=== PATIENT | female | born 1975 | race Caucasian/White ===

== ENCOUNTER 2021-04-30 18:06 | Emergency (ER) | payer SELFPAY ==
--- NOTE | 2021-04-30 18:29 | EDM.PDOC ---
ED HPI GENERAL MEDICAL PROBLEM - General Chief Complaint: Head Injury Stated Complaint: ger amb Time Seen by Provider: 04/30/21 18:12 Source of Information: Reports: Patient, EMS History Limitations: Reports: No Limitations - History of Present Illness INITIAL COMMENTS - FREE TEXT/NARRATIVE: 46-year-old female presents to the ED per [facility]. She reports that she was walking on a mattress which is apparently lying on the floor in her living room which threw her off balance and caused her to fall forward striking her forehead on a table. She reports transient loss of conscious. She does complain of a headache but no nausea or vomiting upon arrival in the ED. Complaining of pain throughout her cervical spine particularly C6-C7 level. She can move all limbs. She has localized tenderness to the base of her spine but no step-off deformities. She is alert and oriented to person time and place. The paramedics were called out for a stroke alert. There is no evidence this patient has suffered a CVA. She complaining of mild pain in both of her shoulders and palm of her left hand over the thenar eminence. Denies any lower extremity pain or pelvic pain or lower back pain Onset: Today, Sudden Onset Date: 04/30/21 Onset Time: 17:50 Duration: Minutes: Location: Reports: Head, Neck, Upper Extremity, Left ( and biceps area. Shoulder area), Upper Extremity, Right (Shoulder area). Denies: Lower Extremity, Left, Lower Extremity, Right Quality: Reports: Ache Severity: Moderate Improves with: Reports: Rest Worsens with: Reports: Movement Context: Reports: Trauma (Tripped up and fell in her living room at home while walking on a mattress on the floor. This propelled her forward into a table st riking her forehead on the edge of a table with reported transient loss of consciousness.). Denies: Activity, Exercise, Lifting, Sick Contact Associated Symptoms: Reports: Headaches. 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 [No Known Home Meds] 04/30/21 [History] Past Medical History Musculoskeletal History: Reports: Osteoarthritis Endocrine/Metabolic History: Reports: Obesity/BMI 30+ Social & Family History - Living Situation & Occupation Living situation: Reports: Occupation: Unemployed ED ROS GENERAL - Review of Systems Review Of Systems: See Below Constitutional: Denies: Fever, Chills, Malaise, Weakness, Fatigue, Weight Loss HEENT: Reports: No Symptoms Respiratory: Reports: Shortness of Breath (On exertion). Denies: Cough Cardiovascular: Reports: Dyspnea on Exertion, Lightheadedness. Denies: Chest Pain, Blood Pressure Problem, Claudication, Edema (Occasionally), Orthopnea Endocrine: Reports: Fatigue GI/Abdominal: Reports: No Symptoms : Reports: Frequency, Incontinence (Occasional stress-induced) Musculoskeletal: Reports: Neck Pain, Back Pain, Joint Pain (Knees and hips at times) Skin: Reports: No Symptoms Neurological: Reports: Headache. Denies: Confusion, Dizziness, Numbness, Pre- Existing Deficit, Syncope, Tingling (At present from fall today), Trouble Speaking, Difficulty Walking, Weakness Psychiatric: Reports: No Symptoms Hematologic/Lymphatic: Reports: No Symptoms Immunologic: Reports: No Symptoms ED EXAM, HEAD INJURY - Physical Exam Exam: See Below Exam Limited By: No Limitations General Appearance: Alert, No Apparent Distress, Other (Temperature is 35.6 not felt to be correct. Heart rate is 66 and sinus respiratory to 16 with O2 sats of 99% room air BP 136/88.) Head: Facial Tenderness (Tenderness along the hairline particular right frontal scalp where she apparently struck a table. Minimal hematoma at this time) Nexus Criteria: Posterior, Midline Cervical Tenderness (Base of cervical spine C6-C7 and T1.). No: Evidence of Intoxication, Altered Level of Consciousness, Focal Neurological Deficit, Painful Distraction Injuries Eyes: Bilateral Eye: Normal Inspection, PERRL Ears: Normal External Exam Nose: Normal Inspection Throat/Mouth: Other (No injury to the dentition which is in very poor shape. Tongue is normal.) Neck: Normal Alignment, Normal Inspection, Paraspinous Muscle Tender, Spinous Processes Tender (Left side of her neck. C6-C7), Tender Lateral, Other (She has a bit of a buffalo hump over the lower cervical and upper thoracic vertebra) Respiratory: No Respiratory Distress, Lungs Clear, Normal Breath Sounds, No Accessory Muscle Use (Left side with minimal paraspinal muscle spasm), Other (No pain on firm compression of sternum or ribs. Clavicles and AC joints are normal) Cardiovascular: Normal Peripheral Pulses, Regular Rate, Rhythm, No Edema, No Gallop, No Murmur, No Rub GI/Abdominal Exam: Normal Bowel Sounds, Soft, Non-Tender, No Organomegaly, No Mass, Pelvis Stable Back Exam: Normal Inspection, Full Range of Motion. No: CVA Tenderness (L), CVA Tenderness (R) Extremities: Normal Inspection, Normal Range of Motion, Non-Tender, No Pedal Edema, Other (He has tenderness along the soft tissues of her right upper extremity in the distribution of her biceps and lateral right arm without abrasions or hematoma at this time. Mild tenderness over the left thenar eminence with full opposition of her left thumb to all of her fingers. Wrists e lbows knees ) Neurologic: No Motor/Sensory Deficits, Alert, Normal Mood/Affect, Oriented x 3 Skin: Normal Color, Warm/Dry - [place] Coma Score Best Eye Response ([place]): (4) Open Spontaneously Best Verbal Response ([place]): (5) Oriented Best Motor Response ([place]): (6) Obeys Commands Deniz Total: 15 Course - Vital Signs Last Recorded V/S: Last Vital Signs Temp 35.6 C L 04/30/21 18:06 Pulse 66 04/30/21 18:06 Resp 16 04/30/21 18:06 BP 136/88 04/30/21 18:06 Pulse Ox 99 04/30/21 18:06 - Orders/Labs/Meds Orders: Active Orders 24 hr Category Date Time Status Cervical Spine wo Cont [CT] Stat Exams 04/30/21 18:26 Taken Head wo Cont [CT] Stat Exams 04/30/21 18:24 Taken - Radiology Interpretation Free Text/Narrative:: 46-year-old female presents to the ED for evaluation of injuries to her head and neck primarily. She apparently was walking on a mattress that they have lying on the floor in their living room and she got tripped up and fell forwards into a table. She hit her forehead on the ledge of the table and ended up in a very awkward position with her right leg up in the air and her head on the floor. She believes she was knocked out for a short period of time. Complaining of mild headache with no nausea or vomiting. Complaining of pain at the base of her cervical spine particularly C6-C7 and thoracic 1 and 2 vertebra. No other injuries were identified on examination other than contusion to her right upper arm and left deltoid area. Also mild contusion to the thenar eminence of her left hand. Plan CT of head neck to be done. - Re-Assessments/Exams Free Text/Narrative Re-Assessment/Exam: 04/30/21 18:59 CT of the cervical spine has been completed without contrast. Reveals slight loss of the normal lordotic curvature. There is otherwise normal alignment and no fractures are evident. No subluxation is evident. Neuroforamina are within normal limits. CT of the head reveals some atrophy with prominence of the sulci and convexities slightly more than one would anticipate for patient of her age. There was no intracranial bleeding or mass- effect. No no fractures identified. Patient reassured. She will be discharged to home. Advised that she is to expect increase stiffness and soreness in her neck and upper arm muscles over the next 24 to 48 hours. She will use Motrin 600 mg every 6 hours or Aleve 2 tablets every 8 hours as needed for pain relief. Follow-up with your primary care physician if any further problems occur. Departure - Departure Time of Disposition: 19:02 Disposition: Home, Self-Care 01 Condition: Fair Clinical Impression: Contusion of right upper arm, initial encounter, Contusion of left hand, initial encounter Closed head injury Qualifiers: Encounter type: initial encounter Qualified Code(s): S09.90XA - Unspecified injury of head, initial encounter Fall as cause of accidental injury at home as place of occurrence Qualifiers: Encounter type: initial encounter Qualified Code(s): W19.XXXA - Unspecified fall, initial encounter Sprain of cervical neck Qualifiers: Encounter type: initial encounter Qualified Code(s): S13.9XXA - Sprain of joints and ligaments of unspecified parts of neck, initial encounter - Discharge Information *PRESCRIPTION DRUG MONITORING PROGRAM REVIEWED*: Not Applicable *COPY OF PRESCRIPTION DRUG MONITORING REPORT IN PATIENT ABA: Not Applicable Instructions: Facial or Scalp Contusion, [id number], Head Injury, Adult, [id number], Cervical Sprain, [id number] Forms: ED Department Discharge Additional Instructions: Evaluation in the emergency room today in regards to a fall at home with closed head injury and contusion to your right upper forehead and strain of your cervical neck muscles and ligaments. CT scan of your head reveals no skull fractures and no intracranial bleeding or mass-effect. CT scan of your neck bones did not reveal any broken bones. It appears that you have strained the surrounding muscles and ligaments from your fall and striking her forehead. Contusion to the right upper arm with no evidence of bone injury. Contusion to the palmar aspect of your left hand as well. Expect to be more stiff and sore over the next 24 to 48 hours. Suggest Motrin 600 mg every 6 hours as needed for pain relief or 2 tablets of Aleve every 8 hours for pain relief as needed. May apply ice pack to your neck for 20 minutes out of every 3 hours for the next 1 and 1/2 days. Follow-up with personal care physician if any further problems occur. Sepsis Event Note (ED) - Evaluation Sepsis Screening Result: No Definite Risk - Focused Exam Vital Signs: Vital Signs Temp Pulse Resp BP Pulse Ox 04/30/21 18:06 35.6 C L 66 16 136/88 99 - My Orders Last 24 Hours: My Active Orders 04/30/21 18:24 Head wo Cont [CT] Stat 04/30/21 18:26 Cervical Spine wo Cont [CT] Stat - Assessment/Plan Last 24 Hours: My Active Orders 04/30/21 18:24 Head wo Cont [CT] Stat 04/30/21 18:26 Cervical Spine wo Cont [CT] Stat
--- NOTE | 2021-04-30 19:07 | CT ---
Head CT Technique: Multiple axial sections through the brain were obtained. Intravenous contrast was utilized. Reconstructed coronal and sagittal images were obtained. Comparison: No prior intracranial imaging is available. Findings: Ventricles along with basal cisterns and sulci over the convexities appear within normal limits for the patient's age. No abnormal parenchymal densities are seen. Bone window settings were reviewed. No acute calvarial abnormality is seen. Visualized mastoid sinuses and paranasal sinuses show nothing acute. Impression: 1. Nothing acute is appreciated on noncontrast head CT study. Diagnostic code #1
--- NOTE | 2021-04-30 19:51 | CT ---
CT cervical spine Technique: Multiple axial sections were obtained from above C1 inferiorly to the mid T3 level. Reconstructed coronal and sagittal images were obtained. Comparison: No prior cervical spine imaging is available. Findings: Vertebral body heights and disc spaces are fairly well preserved. Very slight anterior osteophytes are seen at C4-5, C5-6 and C6-7. Vertebral body heights are maintained. Very slight posterior osteophytes are also noted at C4-5 and C5-6. No bony central or bony neural foraminal stenosis is seen. No fracture or subluxation is seen. Mild kyphosis is seen within the cervical spine which is most likely due to positioning. Slight scoliosis is also noted. Impression: 1. Kyphosis as well as mild scoliosis. Kyphosis is most likely positional. 2. No acute fracture or abnormal subluxation is seen. 3. Minimal degenerative change as noted above. Diagnostic code #2
== END 2021-04-30 19:08 | disposition home or self-care (01) ==
LOC: JD.ED 18:06
DX: S06.9X9A Unspecified intracranial injury with loss of consciousness of unspecified duration, initial encounter (principal); S13.4XXA Sprain of ligaments of cervical spine, initial encounter; S60.222A Contusion of left hand, initial encounter; E66.9 Obesity, unspecified; Z68.35 Body mass index [BMI] 35.0-35.9, adult; W18.09XA Striking against other object with subsequent fall, initial encounter; Y92.009 Unspecified place in unspecified non-institutional (private) residence as the place of occurrence of the external cause
CPT/HCPCS: 70450; 70450-26; 72125; 72125-26; 99284; 99284-25

== ENCOUNTER 2021-08-07 15:29 | Inpatient (IN) | payer SELFPAY ==
[2021-08-07] MEDS ORDERED: Albuterol 0.083% 2.5 MG/3 ML Neb Soln NEB PRN (16:52)
[2021-08-07] MEDS ORDERED: Furosemide 20 MG/2 ML VIAL IVPUSH ONE (17:30)
--- NOTE | 2021-08-07 17:56 | PCM.HP.2 ---
H&P History of Present Illness - General Date of Service: 08/07/21 Admit Problem/Dx: Admission Diagnosis/Problem Admission Diagnosis/Problem Congestive heart failure/hypoxia Source of Information: Patient, Provider History Limitations: Reports: Respiratory Distress - History of Present Illness Initial Comments - Free Text/Narative: 08/07/21 46 year old female with coughing and weird flu x one month // [place] getting worse with increased swelling both feet noted. describes increased [place] started before that and not coughing up much sputum but has mucous in her throat alot. she was seen in [place] [facility] in [facility] today and found hypoxic with abnormal chest xray. with findings of enlarged heart and infiltrate and ground glass opacities in bases. (no hx of work with asbestos and or silica occupational exposure) lab normal // no screening done and called to admit patient for heart failure. no ekg done. no hemoptysis,fever,chills recently but had with flu . no covid exposure as sits at home in her chair. denies chest pains orthopnea diabetes,snoring or apnea. pregnancies x 2 without difficulty . gaining weight as legs swelled. no calve pain ,no hx of dvt or p.e or clotting disorder. appetite good and follows no diet. fh father bipolar. all: none. surgeries none p.e. vs as recorded. obese cauc female with bad teeth and breathless with talking. lungs diffuse crackles and few ronchii and few wheezes both lung diaz. cor rrr no s3/4 or murmurs.no jvd abd obese ? spleen tip no hepatomegaly ext. legs 3plus symmetric edema and redness extending to below knees. cracks between toes no def. skin tears. ekg pending . labs normal mostly see report. urine normal. blood sugar 110 non fasting. creat .9 lfts normal. protein/alb normal . assess: 1// hypoxia/tachipnea with new infiltrates and heart failure symptoms worsening over last 6 months 2// recent uri/bronchitis prob. covid screen ordered.. 3// cardiac enlargment ? etiology. echo and ekg and trop ordered but no hx of cad valvular or other known cause . ? covid and rt heart failure related to microemoli or p.e. 4// increased edema started before weird flu? heart failure and now pneumonia on xray . obesity . 5// cellulitis legs without def. vasculitis and or varicosities . lymphedema. 6// multiple carious teeth no hx of drug and or meth or etoh abuse or use. non smoker. plan o2/ d dimer/ rule out p.e and rt heart failure. ekg rule out silent ami. covid flu /rsv screen/// start nebs echo.// ekg telemety tonight. antibiotics // lasix and heart failure treatment started. screen for diabetes and other causes. diabetic ed and monitor b.s d.e and dietary teaching. boh Onset of Symptoms: Reports: Gradual (3 days increased coughing /[place] and swelling and redness of feet.) Improves with: Reports: Rest Worsens with: Reports: Movement - Related Data Allergies/Adverse Reactions: Allergies Allergy/AdvReac Type Severity Reaction Status Date / Time No Known Allergies Allergy Verified 04/30/21 18:19 Home Medications: Home Meds . [No Known Home Meds] 04/30/21 [History] Past Medical History HEENT History: Reports: Other (See Below) Other HEENT History: severe dental issues--broken teeth and blackened teeth. 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: Musculoskeletal History: Reports: Osteoarthritis Endocrine/Metabolic History: Reports: Obesity/BMI 30+ - Infectious Disease History Infectious Disease History: Reports: Chicken Pox Social & Family History - Caffeine Use Caffeine Use: Reports: Soda - Living Situation & Occupation Occupation: Unemployed H&P Review of Systems - Review of Systems: Review Of Systems: See Below General: Reports: No Symptoms HEENT: Reports: No Symptoms Pulmonary: Reports: No Symptoms, Shortness of Breath, Cough Cardiovascular: Reports: No Symptoms Gastrointestinal: Reports: No Symptoms Genitourinary: Reports: No Symptoms Musculoskeletal: Reports: No Symptoms Skin: Reports: No Symptoms Psychiatric: Reports: No Symptoms Neurological: Reports: No Symptoms Hematologic/Lymphatic: Reports: No Symptoms Immunologic: Reports: No Symptoms Exam - Exam Exam: See Below - Vital Signs Vital Signs: Last Vital Signs Temp 36.6 C 08/07/21 15:47 Pulse 85 08/07/21 15:59 Resp 18 08/07/21 15:47 BP 132/67 08/07/21 15:47 Pulse Ox 99 08/07/21 15:59 - Exam Quality Assessment: Supplemental Oxygen General: Alert, Oriented, 4 HEENT: PERRLA, Hearing Intact, Mucosa Moist & Chaplin, Nares Patent, Normal Nasal Septum, Posterior Pharynx Clear, Conjunctiva Clear, EOMI, EACs Clear, TMs Clear Neck: Supple, Trachea Midline, 2 Lungs: Clear to Auscultation, Normal Respiratory Effort Cardiovascular: Regular Rate, Regular Rhythm GI/Abdominal Exam: Normal Bowel Sounds, Soft, Non-Tender, No Organomegaly, No Distention, No Abnormal Bruit, No Mass, Pelvis Stable (Female) Exam: Normal External Exam, Normal Speculum Exam, Normal Bimanual Exam Rectal (Female) Exam: Normal Exam, Normal Rectal Tone Back Exam: Normal Inspection, Full Range of Motion, NT Extremities: Normal Inspection, Normal Range of Motion, Non-Tender, No Pedal Edema, Normal Capillary Refill Skin: Warm, Dry, Intact Neurological: Cranial Nerves Intact, Reflexes Equal Bilateral Neuro Extensive - Mental Status: Alert, Oriented x3, Normal Mood/Affect, Normal Cognition Neuro Extensive - Motor, Sensory, Reflexes: CN II-XII Intact, Normal Gait, Normal Reflexes Psychiatric: Alert, Normal Affect, Normal Mood Sepsis Event Note - Focused Exam Vital Signs: Vital Signs Temp Pulse Resp BP Pulse Ox 08/07/21 15:59 85 99 08/07/21 15:47 36.6 C 94 18 132/67 84 L - Problem List (1) Heart failure SNOMED Code(s): 14139810 ICD Code: I50.9 - HEART FAILURE, UNSPECIFIED Status: Acute Priority: High Current Visit: Yes Qualifiers: Heart failure type: right-sided Heart failure chronicity: unspecified Shukri lified Code(s): I50.810 - Right heart failure, unspecified (2) Bronchitis due to COVID-19 virus SNOMED Code(s): 655028015732851518 ICD Code: U07.1 - COVID-19; J40 - BRONCHITIS, NOT SPECIFIED ACUTE OR CHRONIC Status: Acute Priority: High Current Visit: Yes Onset Date: ~07/08/21 Problem Details: screens pending/ pneumonic and gg infiltrates seen on xray needs ct scan with contrast likely rule out p.e and eval lung disease (3) Edema due to congestive heart failure SNOMED Code(s): 430880326, 784708445 ICD Code: I50.9 - HEART FAILURE, UNSPECIFIED Status: Acute Current Visit: Yes (4) Cellulitis SNOMED Code(s): 099436687 ICD Code: L03.90 - CELLULITIS, UNSPECIFIED Status: Acute Current Visit: Yes Onset Date: ~08/07/21 Qualifiers: Site of cellulitis: other site Qualified Code(s): L03.818 - Cellulitis of other sites (5) Obesity (BMI 30-39.9) SNOMED Code(s): 898747832, 590022309 ICD Code: E66.9 - OBESITY, UNSPECIFIED Status: Acute Priority: High Current Visit: Yes Onset Date: ~08/07/21 Problem Details: might have bhavin palatecrowded a nd carious teeth. ?previous cleft lip /palate Problem List Initiated/Reviewed/Updated: Yes Orders Last 24hrs: Active Orders 24 hr Category Date Time Status Patient Status [ADT] Routine ADT 08/07/21 16:34 Active Oxygen Therapy [RC] ASDIRECTED Care 08/07/21 16:51 Active RT Aerosol Therapy [RC] ASDIRECTED Care 08/07/21 16:54 Active Up ad [place] [RC] ASDIRECTED Care 08/07/21 17:23 Active Vital Signs [RC] QSHIFT Care 08/07/21 16:35 Active Echo Comp wo Cont [US] Routine Exams 08/07/21 16:54 Ordered ABG [BLOOD GAS ARTERIAL] [BG] Urgent Lab 08/07/21 17:23 Ordered CBC WITH AUTO DIFF [HEME] Routine Lab 08/08/21 05:00 Ordered CMP [COMPREHENSIVE METABOLIC PN,CMP] [CHEM] Routine Lab 08/08/21 05:00 Ordered CRP [C-REACTIVE PROTEIN] [CHEM] Routine Lab 08/08/21 05:00 Ordered DD [D-DIMER QUANTITATIVE] [COAG] Routine Lab 08/08/21 05:00 Ordered PRO B-TYPE NATRIUR PEPT,BNPPRO [CHEM] Routine Lab 08/08/21 05:00 Ordered TROPONIN I [CHEM] Routine Lab 08/08/21 05:00 Ordered TSH [CHEM] Routine Lab 08/08/21 05:00 Ordered Albuterol [Proventil Neb Soln] Med 08/07/21 16:52 Active 2.5 mg NEB Q6HRRT PRN Furosemide [Lasix] Med 08/07/21 17:30 Once 20 mg IVPUSH NOW ONE Losartan [Cozaar] Med 08/08/21 09:00 Active 25 mg PO DAILY Potassium Chloride [Klor-Con M20] Med 08/07/21 21:00 Ordered 20 meq PO BID Medication Orders Albuterol (Albuterol 0.083% 2.5 Mg/3 Ml Neb Soln) 2.5 mg NEB Q6HRRT PRN PRN Reason: Wheezing Furosemide (Furosemide 20 Mg/2 Ml Vial) 20 mg IVPUSH NOW ONE Stop: 08/07/21 17:31 Losartan Potassium (Losartan 25 Mg Tab) 25 mg PO DAILY VIVIAN Potassium Chloride (Potassium Chloride 20 Meq Tab.Er) 20 meq PO BID VIVIAN Stop: 08/08/21 22:00 Assessment/Plan Comment:: 08/07/21 assess: 1// hypoxia/tachipnea with new infiltrates and heart failure symptoms worsening over last 6 months 2// recent uri/bronchitis prob. covid screen ordered.. 3// cardiac enlargment ? etiology. echo and ekg and trop ordered but no hx of cad valvular or other known cause . ? covid and rt heart failure related to microemoli or p.e. 4// increased edema started before weird flu? heart failure and now pneumonia on xray . obesity . 5// cellulitis legs without def. vasculitis and or varicosities . lymphedema. 6// multiple carious teeth no hx of drug and or meth or etoh abuse or use. non smoker. plan o2/ d dimer/ rule out p.e and rt heart failure. ekg rule out silent ami. covid flu /rsv screen/// start nebs echo.// ekg telemety tonight. antibiotics // lasix and heart failure treatment started. screen for diabetes and other causes. diabetic ed and monitor b.s d.e and dietary teaching. boh - Mortality Measure Prognosis:: Good
[2021-08-07] MEDS ORDERED: cefTRIAXone 2 GM in Sodium Chloride 0.9% 100 ML IV SCH (18:15)
[2021-08-07 19:44] LABS: HEMOGLOBIN A1C 6.7 %
[2021-08-07] MEDS: cefTRIAXone 2 GM in Sodium Chloride 0.9% 100 ML IV SCH (19:45)
[2021-08-07] MEDS: Potassium Chloride 20 MEQ Tab.ER PO SCH (19:59)
[2021-08-07] MEDS: Sodium Chloride 0.9% 10 ML Syringe FLUSH SCH (20:00)
[2021-08-07 20:30] LABS: CORONAVIRUS COVID-19 NAA POSITIVE (NEGATIVE)
[2021-08-07] MEDS ORDERED: Enoxaparin 40 MG/0.4 ML Syringe SUBCUT SCH (21:00)
[2021-08-07] MEDS ORDERED: Dexamethasone 6 MG TABLET PO SCH (21:45)
[2021-08-07] MEDS ORDERED: REMDESIVIR 200 MG in Sodium Chloride 0.9% 250 ML IV ONE (22:00)
[2021-08-08] MEDS ORDERED: Dexamethasone 6 MG TABLET PO SCH (01:00)
[2021-08-08] MEDS ORDERED: REMDESIVIR 200 MG in Sodium Chloride 0.9% 250 ML IV ONE (01:00)
[2021-08-08] MEDS: Dexamethasone 6 MG TABLET PO SCH ×2 (01:20→13:07)
--- NOTE | 2021-08-08 08:26 | PCM.PN ---
<Jay Valdez - Last Filed: 08/08/21 14:29> - General Info Date of Service: 08/08/21 Admission Dx/Problem (Free Text): Admission Diagnosis/Problem Admission Diagnosis/Problem Congestive heart failure/hypoxia Functional Status: Reports: Pain Controlled, Tolerating Diet, Ambulating, Urinating, Incentive Spirometry, Other (Acapella ). Denies: New Symptoms - Review of Systems General: Reports: No Symptoms. Denies: Fever, Weakness, Fatigue, Malaise, Chills HEENT: Reports: No Symptoms. Denies: Headaches, Sore Throat Pulmonary: Reports: Cough. Denies: Shortness of Breath, Pleuritic Chest Pain, Sputum, Wheezing Cardiovascular: Reports: Dyspnea on Exertion. Denies: Chest Pain, Palpitations Gastrointestinal: Reports: No Symptoms. Denies: Abdominal Pain, Constipation, Diarrhea, Nausea, Vomiting Genitourinary: Reports: No Symptoms. Denies: Pain Musculoskeletal: Reports: Foot Pain (bilateral 2/2 edema ) Skin: Reports: No Symptoms. Denies: Cyanosis Neurological: Reports: No Symptoms. Denies: Confusion, Dizziness, Headache, Numbness, Seizure, Syncope, Tingling, Difficulty Walking, Weakness, Gait Disturbance Psychiatric: Reports: No Symptoms - Patient Data Vitals - Most Recent: Last Vital Signs Temp 98.8 F 08/08/21 00:34 Pulse 93 08/08/21 04:59 Resp 20 08/08/21 04:59 BP 112/60 08/08/21 04:59 Pulse Ox 91 L 08/08/21 04:59 Weight - Most Recent: 102.693 kg I&O - Last 24 Hours: Intake & Output 08/07/21 08/08/21 08/08/21 22:59 06:59 14:59 Intake Total 750 Output Total 1400 Balance -650 Lab Results Last 24 Hours: Laboratory Results - last 24 hr 08/07/21 08/07/21 08/07/21 Range/Units 18:03 18:52 18:59 WBC (3.98-10.04) K/mm3 RBC (3.98-5.22) M/mm3 Hgb (11.2-15.7) gm/dl Hct (34.1-44.9) % MCV (79.4-94.8) fl MCH (25.6-32.2) pg MCHC (32.2-35.5) g/dl RDW Std Deviation (36.4-46.3) fL Plt Count (182-369) K/mm3 MPV (9.4-12.3) fl Neut % (Auto) (34.0-71.1) % Lymph % (Auto) (19.3-51.7) % [place] % (Auto) (4.7-12.5) % Eos % (Auto) (0.7-5.8) Baso % (Auto) (0.1-1.2) % Neut # (Auto) (1.56-6.13) K/mm3 Lymph # (Auto) (1.18-3.74) K/mm3 [place] # (Auto) (0.24-0.36) K/mm3 Eos # (Auto) (0.04-0.36) K/mm3 Baso # (Auto) (0.01-0.08) K/mm3 D-Dimer, Quantitative (0.19-0.50) mg/L Puncture Site ABG pH (7.35-7.45) ABG pCO2 (35.0-45.0) mmHg ABG pO2 (80.0-100.0) mmHg ABG HCO3 (22.0-26.0) meq/L ABG O2 Saturation (96.0-97.0) % ABG Base Excess (-2-2.0) A-a Gradient mmHg O2 Delivery Device Oxygen Flow Rate FiO2 (21.00-100.00) % Sodium (136-145) mEq/L Potassium (3.5-5.1) mEq/L Chloride (98-107) mEq/L Carbon Dioxide (21-32) mEq/L Anion Gap (5-15) BUN (7-18) mg/dL Creatinine (0.55-1.02) mg/dL Est Cr Clr Drug Dosing mL/min Estimated GFR (MDRD) (>60) mL/min BUN/Creatinine Ratio (14-18) Glucose (70-99) mg/dL POC Glucose 137 H (70-99) mg/dL Hemoglobin A1c ( - 5.6) % Calcium (8.5-10.1) mg/dL Total Bilirubin (0.2-1.0) mg/dL AST (15-37) U/L ALT (14-59) U/L Alkaline Phosphatase (46-116) U/L Troponin I 0.033 (0.00-0.056) ng/mL C-Reactive Protein (<1.0) mg/dL NT-Pro-B Natriuret Pep (0-125) pg/mL Total Protein (6.4-8.2) g/dl Albumin (3.4-5.0) g/dl Globulin gm/dL Albumin/Globulin Ratio (1-2) TSH 3rd Generation 3.512 (0.358-3.74) uIU/mL Influenza Type A RNA Negative (NEGATIVE) RSV RNA (INAAT) Negative (NEGATIVE) Influenza Type B RNA Negative (NEGATIVE) SARS-CoV-2 RNA (BRENDA) Positive H (NEGATIVE) 08/07/21 08/07/21 08/07/21 Range/Units 19:10 19:10 21:24 WBC (3.98-10.04) K/mm3 RBC (3.98-5.22) M/mm3 Hgb (11.2-15.7) gm/dl Hct (34.1-44.9) % MCV (79.4-94.8) fl MCH (25.6-32.2) pg MCHC (32.2-35.5) g/dl RDW Std Deviation (36.4-46.3) fL Plt Count (182-369) K/mm3 MPV (9.4-12.3) fl Neut % (Auto) (34.0-71.1) % Lymph % (Auto) (19.3-51.7) % [place] % (Auto) (4.7-12.5) % Eos % (Auto) (0.7-5.8) Baso % (Auto) (0.1-1.2) % Neut # (Auto) (1.56-6.13) K/mm3 Lymph # (Auto) (1.18-3.74) K/mm3 [place] # (Auto) (0.24-0.36) K/mm3 Eos # (Auto) (0.04-0.36) K/mm3 Baso # (Auto) (0.01-0.08) K/mm3 D-Dimer, Quantitative 4.38 H (0.19-0.50) mg/L Puncture Site Rt radial ABG pH 7.48 H (7.35-7.45) ABG pCO2 40.5 (35.0-45.0) mmHg ABG pO2 52.0 L (80.0-100.0) mmHg ABG HCO3 29.5 H (22.0-26.0) meq/L ABG O2 Saturation 88.0 L (96.0-97.0) % ABG Base Excess 5.8 H (-2-2.0) A-a Gradient 47 mmHg O2 Delivery Device Room air Oxygen Flow Rate 0.0 FiO2 21.00 (21.00-100.00) % Sodium (136-145) mEq/L Potassium (3.5-5.1) mEq/L Chloride (98-107) mEq/L Carbon Dioxide (21-32) mEq/L Anion Gap (5-15) BUN (7-18) mg/dL Creatinine (0.55-1.02) mg/dL Est Cr Clr Drug Dosing mL/min Estimated GFR (MDRD) (>60) mL/min BUN/Creatinine Ratio (14-18) Glucose (70-99) mg/dL POC Glucose (70-99) mg/dL Hemoglobin A1c 6.7 H ( - 5.6) % Calcium (8.5-10.1) mg/dL Total Bilirubin (0.2-1.0) mg/dL AST (15-37) U/L ALT (14-59) U/L Alkaline Phosphatase (46-116) U/L Troponin I (0.00-0.056) ng/mL C-Reactive Protein (<1.0) mg/dL NT-Pro-B Natriuret Pep (0-125) pg/mL Total Protein (6.4-8.2) g/dl Albumin (3.4-5.0) g/dl Globulin gm/dL Albumin/Globulin Ratio (1-2) TSH 3rd Generation (0.358-3.74) uIU/mL Influenza Type A RNA (NEGATIVE) RSV RNA (INAAT) (NEGATIVE) Influenza Type B RNA (NEGATIVE) SARS-CoV-2 RNA (BRENDA) (NEGATIVE) 08/08/21 08/08/21 08/08/21 Range/Units 05:17 05:17 05:17 WBC 6.06 (3.98-10.04) K/mm3 RBC 3.56 L (3.98-5.22) M/mm3 Hgb 10.8 L (11.2-15.7) gm/dl Hct 34.8 (34.1-44.9) % MCV 97.8 H (79.4-94.8) fl MCH 30.3 (25.6-32.2) pg MCHC 31.0 L (32.2-35.5) g/dl RDW Std Deviation 59.7 H (36.4-46.3) fL Plt Count 261 (182-369) K/mm3 MPV 9.1 L (9.4-12.3) fl Neut % (Auto) 84.8 H (34.0-71.1) % Lymph % (Auto) 11.7 L (19.3-51.7) % [place] % (Auto) 2.0 L (4.7-12.5) % Eos % (Auto) 1.0 (0.7-5.8) Baso % (Auto) 0.3 (0.1-1.2) % Neut # (Auto) 5.14 (1.56-6.13) K/mm3 Lymph # (Auto) 0.71 L (1.18-3.74) K/mm3 [place] # (Auto) 0.12 L (0.24-0.36) K/mm3 Eos # (Auto) 0.06 (0.04-0.36) K/mm3 Baso # (Auto) 0.02 (0.01-0.08) K/mm3 D-Dimer, Quantitative (0.19-0.50) mg/L Puncture Site ABG pH (7.35-7.45) ABG pCO2 (35.0-45.0) mmHg ABG pO2 (80.0-100.0) mmHg ABG HCO3 (22.0-26.0) meq/L ABG O2 Saturation (96.0-97.0) % ABG Base Excess (-2-2.0) A-a Gradient mmHg O2 Delivery Device Oxygen Flow Rate FiO2 (21.00-100.00) % Sodium 139 (136-145) mEq/L Potassium 3.5 (3.5-5.1) mEq/L Chloride 99 (98-107) mEq/L Carbon Dioxide 30 (21-32) mEq/L Anion Gap 13.5 (5-15) BUN 25 H (7-18) mg/dL Creatinine 1.7 H (0.55-1.02) mg/dL Est Cr Clr Drug Dosing 37.21 mL/min Estimated GFR (MDRD) 32 (>60) mL/min BUN/Creatinine Ratio 14.7 (14-18) Glucose 117 H (70-99) mg/dL POC Glucose (70-99) mg/dL Hemoglobin A1c ( - 5.6) % Calcium 9.2 (8.5-10.1) mg/dL Total Bilirubin 0.2 (0.2-1.0) mg/dL AST 27 (15-37) U/L ALT 18 (14-59) U/L Alkaline Phosphatase 182 H (46-116) U/L Troponin I (0.00-0.056) ng/mL C-Reactive Protein 30.2 H* (<1.0) mg/dL NT-Pro-B Natriuret Pep 1544 H (0-125) pg/mL Total Protein 7.2 (6.4-8.2) g/dl Albumin 2.2 L (3.4-5.0) g/dl Globulin 5.0 gm/dL Albumin/Globulin Ratio 0.4 L (1-2) TSH 3rd Generation (0.358-3.74) uIU/mL Influenza Type A RNA (NEGATIVE) RSV RNA (INAAT) (NEGATIVE) Influenza Type B RNA (NEGATIVE) SARS-CoV-2 RNA (BRENDA) (NEGATIVE) 08/08/21 Range/Units 07:04 WBC (3.98-10.04) K/mm3 RBC (3.98-5.22) M/mm3 Hgb (11.2-15.7) gm/dl Hct (34.1-44.9) % MCV (79.4-94.8) fl MCH (25.6-32.2) pg MCHC (32.2-35.5) g/dl RDW Std Deviation (36.4-46.3) fL Plt Count (182-369) K/mm3 MPV (9.4-12.3) fl Neut % (Auto) (34.0-71.1) % Lymph % (Auto) (19.3-51.7) % [place] % (Auto) (4.7-12.5) % Eos % (Auto) (0.7-5.8) Baso % (Auto) (0.1-1.2) % Neut # (Auto) (1.56-6.13) K/mm3 Lymph # (Auto) (1.18-3.74) K/mm3 [place] # (Auto) (0.24-0.36) K/mm3 Eos # (Auto) (0.04-0.36) K/mm3 Baso # (Auto) (0.01-0.08) K/mm3 D-Dimer, Quantitative (0.19-0.50) mg/L Puncture Site ABG pH (7.35-7.45) ABG pCO2 (35.0-45.0) mmHg ABG pO2 (80.0-100.0) mmHg ABG HCO3 (22.0-26.0) meq/L ABG O2 Saturation (96.0-97.0) % ABG Base Excess (-2-2.0) A-a Gradient mmHg O2 Delivery Device Oxygen Flow Rate FiO2 (21.00-100.00) % Sodium (136-145) mEq/L Potassium (3.5-5.1) mEq/L Chloride (98-107) mEq/L Carbon Dioxide (21-32) mEq/L Anion Gap (5-15) BUN (7-18) mg/dL Creatinine (0.55-1.02) mg/dL Est Cr Clr Drug Dosing mL/min Estimated GFR (MDRD) (>60) mL/min BUN/Creatinine Ratio (14-18) Glucose (70-99) mg/dL POC Glucose 167 H (70-99) mg/dL Hemoglobin A1c ( - 5.6) % Calcium (8.5-10.1) mg/dL Total Bilirubin (0.2-1.0) mg/dL AST (15-37) U/L ALT (14-59) U/L Alkaline Phosphatase (46-116) U/L Troponin I (0.00-0.056) ng/mL C-Reactive Protein (<1.0) mg/dL NT-Pro-B Natriuret Pep (0-125) pg/mL Total Protein (6.4-8.2) g/dl Albumin (3.4-5.0) g/dl Globulin gm/dL Albumin/Globulin Ratio (1-2) TSH 3rd Generation (0.358-3.74) uIU/mL Influenza Type A RNA (NEGATIVE) RSV RNA (INAAT) (NEGATIVE) Influenza Type B RNA (NEGATIVE) SARS-CoV-2 RNA (BRENDA) (NEGATIVE) Med Orders - Current: Current Medications Albuterol (Albuterol 0.083% 2.5 Mg/3 Ml Neb Soln) 2.5 mg NEB Q6HRRT PRN PRN Reason: Wheezing Apixaban (Apixaban 5 Mg Tab) 10 mg PO BID FORMERLY [facility], 1928–1983 Stop: 08/14/21 21:01 Dexamethasone (Dexamethasone 6 Mg Tablet) 6 mg PO DAILY FORMERLY [facility], [facility]–1983 Stop: 08/16/21 09:01 Last Admin: 08/08/21 01:20 Dose: 6 mg Documented by: Ceftriaxone Sodium 2 gm/ (Sodium Chloride) 100 mls @ 200 mls/hr IV Q24H [facility], [facility]–1983 Last Admin: 08/07/21 19:45 Dose: 200 mls/hr Documented by: Remdesivir 100 mg/ Sodium (Chloride) 250 mls @ 250 mls/hr IV Q24H [facility], [facility]–1983 Stop: 08/11/21 22:01 Insulin Human Lispro (Insulin Lispro 100 Unit/Ml 3 Ml Kwikpen) 0 unit SUBCUT WITHMEALSANDBED FORMERLY [facility], 1928–1983; Protocol Losartan Potassium (Losartan 25 Mg Tab) 25 mg PO DAILY [facility], 1928–1983 Potassium Chloride (Potassium Chloride 20 Meq Tab.Er) 20 meq PO BID [facility], 1928–1983 Stop: 08/08/21 22:00 Last Admin: 08/07/21 19:59 Dose: 20 meq Documented by: Sodium Chloride (Sodium Chloride 0.9% 10 Ml Syringe) 10 ml FLUSH 0900,2100 [facility], [facility]–1983 Last Admin: 08/07/21 20:00 Dose: 10 ml Documented by: Zinc Sulfate (Zinc Sulfate 220 Mg Cap) 220 mg PO DAILY [facility], 1928–1983 Discontinued Medications Dexamethasone (Dexamethasone 6 Mg Tablet) 6 mg PO DAILY [facility] Last Admin: 08/08/21 01:44 Dose: Not Given Documented by: Dexamethasone (Dexamethasone 6 Mg Tablet) 6 mg PO DAILY [facility]–1983 Enoxaparin Sodium (Enoxaparin 40 Mg/0.4 Ml Syringe) 40 mg SUBCUT BEDTIME FORMERLY [facility], [facility]–1983 Last Admin: 08/07/21 20:00 Dose: 40 mg Documented by: Furosemide (Furosemide 20 Mg/2 Ml Vial) 20 mg IVPUSH NOW ONE Stop: 12/29/21 17:31 Last Admin: 08/07/21 18:53 Dose: 20 mg Documented by: Ceftriaxone Sodium 2 gm/ (Sodium Chloride) 100 mls @ 200 mls/hr IV Q24H VIVIAN Last Admin: 08/07/21 19:57 Dose: Not Given Documented by: Remdesivir 200 mg/ Sodium (Chloride) 250 mls @ 250 mls/hr IV ONETIME ONE Stop: 08/07/21 22:01 Last Admin: 08/08/21 01:21 Dose: Not Given Documented by: Remdesivir 200 mg/ Sodium (Chloride) 250 mls @ 250 mls/hr IV ONETIME ONE Stop: 08/08/21 01:59 Last Admin: 08/08/21 01:21 Dose: 250 mls/hr Documented by: - Exam Quality Assessment: Supplemental Oxygen (1L), DVT Prophylaxis. No: Urine Catheter General: Alert, Oriented, Cooperative, No Acute Distress HEENT: Pupils Equal, Pupils Reactive, Mucous Membr. Moist/[place] Neck: Supple, Trachea Midline Lungs: Normal Respiratory Effort, Decreased Breath Sounds, Crackles (Right side - mild ) Cardiovascular: Regular Rate, Regular Rhythm GI/Abdominal Exam: Normal Bowel Sounds, Soft, Non-Tender, No Distention (Female) Exam: Deferred Back Exam: Normal Inspection, Full Range of Motion Extremities: Normal Range of Motion, Non-Tender, Normal Capillary Refill, Pedal Edema (4+ but improved), Leg Pain (Bilateral secondary to edema), Increased Warmth, Redness, Other (Nondraining bilateral lower extremity cellulitis. No obvious wounds to either leg.) Skin: Warm, Dry, Intact Neurological: No New Focal Deficit Psy/Mental Status: Alert, Normal Affect, Normal Mood - Patient Data Lab Results Last 24 hrs: Laboratory Results - last 24 hr 08/07/21 08/07/21 08/07/21 Range/Units 18:03 18:52 18:59 WBC (3.98-10.04) K/mm3 RBC (3.98-5.22) M/mm3 Hgb (11.2-15.7) gm/dl Hct (34.1-44.9) % MCV (79.4-94.8) fl MCH (25.6-32.2) pg MCHC (32.2-35.5) g/dl RDW Std Deviation (36.4-46.3) fL Plt Count (182-369) K/mm3 MPV (9.4-12.3) fl Neut % (Auto) (34.0-71.1) % Lymph % (Auto) (19.3-51.7) % [place] % (Auto) (4.7-12.5) % Eos % (Auto) (0.7-5.8) Baso % (Auto) (0.1-1.2) % Neut # (Auto) (1.56-6.13) K/mm3 Lymph # (Auto) (1.18-3.74) K/mm3 [place] # (Auto) (0.24-0.36) K/mm3 Eos # (Auto) (0.04-0.36) K/mm3 Baso # (Auto) (0.01-0.08) K/mm3 D-Dimer, Quantitative (0.19-0.50) mg/L Puncture Site ABG pH (7.35-7.45) ABG pCO2 (35.0-45.0) mmHg ABG pO2 (80.0-100.0) mmHg ABG HCO3 (22.0-26.0) meq/L ABG O2 Saturation (96.0-97.0) % ABG Base Excess (-2-2.0) A-a Gradient mmHg O2 Delivery Device Oxygen Flow Rate FiO2 (21.00-100.00) % Sodium (136-145) mEq/L Potassium (3.5-5.1) mEq/L Chloride (98-107) mEq/L Carbon Dioxide (21-32) mEq/L Anion Gap (5-15) BUN (7-18) mg/dL Creatinine (0.55-1.02) mg/dL Est Cr Clr Drug Dosing mL/min Estimated GFR (MDRD) (>60) mL/min BUN/Creatinine Ratio (14-18) Glucose (70-99) mg/dL POC Glucose 137 H (70-99) mg/dL Hemoglobin A1c ( - 5.6) % Calcium (8.5-10.1) mg/dL Total Bilirubin (0.2-1.0) mg/dL AST (15-37) U/L ALT (14-59) U/L Alkaline Phosphatase (46-116) U/L Troponin I 0.033 (0.00-0.056) ng/mL C-Reactive Protein (<1.0) mg/dL NT-Pro-B Natriuret Pep (0-125) pg/mL Total Protein (6.4-8.2) g/dl Albumin (3.4-5.0) g/dl Globulin gm/dL Albumin/Globulin Ratio (1-2) TSH 3rd Generation 3.512 (0.358-3.74) uIU/mL Influenza Type A RNA Negative (NEGATIVE) RSV RNA (INAAT) Negative (NEGATIVE) Influenza Type B RNA Negative (NEGATIVE) SARS-CoV-2 RNA (BRENDA) Positive H (NEGATIVE) 08/07/21 08/07/21 08/07/21 Range/Units 19:10 19:10 21:24 WBC (3.98-10.04) K/mm3 RBC (3.98-5.22) M/mm3 Hgb (11.2-15.7) gm/dl Hct (34.1-44.9) % MCV (79.4-94.8) fl MCH (25.6-32.2) pg MCHC (32.2-35.5) g/dl RDW Std Deviation (36.4-46.3) fL Plt Count (182-369) K/mm3 MPV (9.4-12.3) fl Neut % (Auto) (34.0-71.1) % Lymph % (Auto) (19.3-51.7) % [place] % (Auto) (4.7-12.5) % Eos % (Auto) (0.7-5.8) Baso % (Auto) (0.1-1.2) % Neut # (Auto) (1.56-6.13) K/mm3 Lymph # (Auto) (1.18-3.74) K/mm3 [place] # (Auto) (0.24-0.36) K/mm3 Eos # (Auto) (0.04-0.36) K/mm3 Baso # (Auto) (0.01-0.08) K/mm3 D-Dimer, Quantitative 4.38 H (0.19-0.50) mg/L Puncture Site Rt radial ABG pH 7.48 H (7.35-7.45) ABG pCO2 40.5 (35.0-45.0) mmHg ABG pO2 52.0 L (80.0-100.0) mmHg ABG HCO3 29.5 H (22.0-26.0) meq/L ABG O2 Saturation 88.0 L (96.0-97.0) % ABG Base Excess 5.8 H (-2-2.0) A-a Gradient 47 mmHg O2 Delivery Device Room air Oxygen Flow Rate 0.0 FiO2 21.00 (21.00-100.00) % Sodium (136-145) mEq/L Potassium (3.5-5.1) mEq/L Chloride (98-107) mEq/L Carbon Dioxide (21-32) mEq/L Anion Gap (5-15) BUN (7-18) mg/dL Creatinine (0.55-1.02) mg/dL Est Cr Clr Drug Dosing mL/min Estimated GFR (MDRD) (>60) mL/min BUN/Creatinine Ratio (14-18) Glucose (70-99) mg/dL POC Glucose (70-99) mg/dL Hemoglobin A1c 6.7 H ( - 5.6) % Calcium (8.5-10.1) mg/dL Total Bilirubin (0.2-1.0) mg/dL AST (15-37) U/L ALT (14-59) U/L Alkaline Phosphatase (46-116) U/L Troponin I (0.00-0.056) ng/mL C-Reactive Protein (<1.0) mg/dL NT-Pro-B Natriuret Pep (0-125) pg/mL Total Protein (6.4-8.2) g/dl Albumin (3.4-5.0) g/dl Globulin gm/dL Albumin/Globulin Ratio (1-2) TSH 3rd Generation (0.358-3.74) uIU/mL Influenza Type A RNA (NEGATIVE) RSV RNA (INAAT) (NEGATIVE) Influenza Type B RNA (NEGATIVE) SARS-CoV-2 RNA (BRENDA) (NEGATIVE) 08/08/21 08/08/21 08/08/21 Range/Units 05:17 05:17 05:17 WBC 6.06 (3.98-10.04) K/mm3 RBC 3.56 L (3.98-5.22) M/mm3 Hgb 10.8 L (11.2-15.7) gm/dl Hct 34.8 (34.1-44.9) % MCV 97.8 H (79.4-94.8) fl MCH 30.3 (25.6-32.2) pg MCHC 31.0 L (32.2-35.5) g/dl RDW Std Deviation 59.7 H (36.4-46.3) fL Plt Count 261 (182-369) K/mm3 MPV 9.1 L (9.4-12.3) fl Neut % (Auto) 84.8 H (34.0-71.1) % Lymph % (Auto) 11.7 L (19.3-51.7) % [place] % (Auto) 2.0 L (4.7-12.5) % Eos % (Auto) 1.0 (0.7-5.8) Baso % (Auto) 0.3 (0.1-1.2) % Neut # (Auto) 5.14 (1.56-6.13) K/mm3 Lymph # (Auto) 0.71 L (1.18-3.74) K/mm3 [place] # (Auto) 0.12 L (0.24-0.36) K/mm3 Eos # (Auto) 0.06 (0.04-0.36) K/mm3 Baso # (Auto) 0.02 (0.01-0.08) K/mm3 D-Dimer, Quantitative (0.19-0.50) mg/L Puncture Site ABG pH (7.35-7.45) ABG pCO2 (35.0-45.0) mmHg ABG pO2 (80.0-100.0) mmHg ABG HCO3 (22.0-26.0) meq/L ABG O2 Saturation (96.0-97.0) % ABG Base Excess (-2-2.0) A-a Gradient mmHg O2 Delivery Device Oxygen Flow Rate FiO2 (21.00-100.00) % Sodium 139 (136-145) mEq/L Potassium 3.5 (3.5-5.1) mEq/L Chloride 99 (98-107) mEq/L Carbon Dioxide 30 (21-32) mEq/L Anion Gap 13.5 (5-15) BUN 25 H (7-18) mg/dL Creatinine 1.7 H (0.55-1.02) mg/dL Est Cr Clr Drug Dosing 37.21 mL/min Estimated GFR (MDRD) 32 (>60) mL/min BUN/Creatinine Ratio 14.7 (14-18) Glucose 117 H (70-99) mg/dL POC Glucose (70-99) mg/dL Hemoglobin A1c ( - 5.6) % Calcium 9.2 (8.5-10.1) mg/dL Total Bilirubin 0.2 (0.2-1.0) mg/dL AST 27 (15-37) U/L ALT 18 (14-59) U/L Alkaline Phosphatase 182 H (46-116) U/L Troponin I (0.00-0.056) ng/mL C-Reactive Protein 30.2 H* (<1.0) mg/dL NT-Pro-B Natriuret Pep 1544 H (0-125) pg/mL Total Protein 7.2 (6.4-8.2) g/dl Albumin 2.2 L (3.4-5.0) g/dl Globulin 5.0 gm/dL Albumin/Globulin Ratio 0.4 L (1-2) TSH 3rd Generation (0.358-3.74) uIU/mL Influenza Type A RNA (NEGATIVE) RSV RNA (INAAT) (NEGATIVE) Influenza Type B RNA (NEGATIVE) SARS-CoV-2 RNA (BRENDA) (NEGATIVE) 08/08/21 Range/Units 07:04 WBC (3.98-10.04) K/mm3 RBC (3.98-5.22) M/mm3 Hgb (11.2-15.7) gm/dl Hct (34.1-44.9) % MCV (79.4-94.8) fl MCH (25.6-32.2) pg MCHC (32.2-35.5) g/dl RDW Std Deviation (36.4-46.3) fL Plt Count (182-369) K/mm3 MPV (9.4-12.3) fl Neut % (Auto) (34.0-71.1) % Lymph % (Auto) (19.3-51.7) % [place] % (Auto) (4.7-12.5) % Eos % (Auto) (0.7-5.8) Baso % (Auto) (0.1-1.2) % Neut # (Auto) (1.56-6.13) K/mm3 Lymph # (Auto) (1.18-3.74) K/mm3 [place] # (Auto) (0.24-0.36) K/mm3 Eos # (Auto) (0.04-0.36) K/mm3 Baso # (Auto) (0.01-0.08) K/mm3 D-Dimer, Quantitative (0.19-0.50) mg/L Puncture Site ABG pH (7.35-7.45) ABG pCO2 (35.0-45.0) mmHg ABG pO2 (80.0-100.0) mmHg ABG HCO3 (22.0-26.0) meq/L ABG O2 Saturation (96.0-97.0) % ABG Base Excess (-2-2.0) A-a Gradient mmHg O2 Delivery Device Oxygen Flow Rate FiO2 (21.00-100.00) % Sodium (136-145) mEq/L Potassium (3.5-5.1) mEq/L Chloride (98-107) mEq/L Carbon Dioxide (21-32) mEq/L Anion Gap (5-15) BUN (7-18) mg/dL Creatinine (0.55-1.02) mg/dL Est Cr Clr Drug Dosing mL/min Estimated GFR (MDRD) (>60) mL/min BUN/Creatinine Ratio (14-18) Glucose (70-99) mg/dL POC Glucose 167 H (70-99) mg/dL Hemoglobin A1c ( - 5.6) % Calcium (8.5-10.1) mg/dL Total Bilirubin (0.2-1.0) mg/dL AST (15-37) U/L ALT (14-59) U/L Alkaline Phosphatase (46-116) U/L Troponin I (0.00-0.056) ng/mL C-Reactive Protein (<1.0) mg/dL NT-Pro-B Natriuret Pep (0-125) pg/mL Total Protein (6.4-8.2) g/dl Albumin (3.4-5.0) g/dl Globulin gm/dL Albumin/Globulin Ratio (1-2) TSH 3rd Generation (0.358-3.74) uIU/mL Influenza Type A RNA (NEGATIVE) RSV RNA (INAAT) (NEGATIVE) Influenza Type B RNA (NEGATIVE) SARS-CoV-2 RNA (BRENDA) (NEGATIVE) Result Diagrams: 08/08/21 05:17 08/08/21 05:17 Sepsis Event Note - Evaluation Sepsis Screening Result: No Definite Risk - Focused Exam Vital Signs: Vital Signs Temp Pulse Resp BP Pulse Ox 08/08/21 04:59 93 20 112/60 91 L 08/08/21 00:34 98.8 F 95 20 91/48 L 91 L - Problem List & Annotations (1) Pneumonia due to COVID-19 virus SNOMED Code(s): 881395190043260191 Code(s): U07.1 - COVID-19; J12.82 - PNEUMONIA DUE TO CORONAVIRUS DISEASE 2018 Status: Acute Priority: High Current Visit: Yes (2) Suspected CHF (congestive heart failure) SNOMED Code(s): 656716371, 843277760 Code(s): R09.89 - OTH SYMPTOMS AND SIGNS INVOLVING THE CIRC AND RESP SYSTEMS Status: Suspected Priority: High Current Visit: Yes (3) Pulmonary emboli SNOMED Code(s): 09735176 Code(s): I26.99 - OTHER PULMONARY EMBOLISM WITHOUT ACUTE COR PULMONALE Status: Acute Priority: High Current Visit: Yes Qualifiers: Pulmonary embolism type: unspecified Chronicity: acute Acute cor pulmona le presence: with acute cor pulmonale Qualified Code(s): I26.09 - Other pulmonary embolism with acute cor pulmonale (4) Cellulitis SNOMED Code(s): 962493851 Code(s): L03.90 - CELLULITIS, UNSPECIFIED Status: Acute Priority: High Current Visit: Yes Qualifiers: Site of cellulitis: other site Qualified Code(s): L03.818 - Cellulitis of other sites (5) Obesity (BMI 30-39.9) SNOMED Code(s): 395475068, 421236832 Code(s): E66.9 - OBESITY, UNSPECIFIED Status: Chronic Priority: High Current Visit: Yes Onset Date: ~08/07/21 (6) Acute hypoxemic respiratory failure SNOMED Code(s): 785135866 Code(s): J96.01 - ACUTE RESPIRATORY FAILURE WITH HYPOXIA Status: Acute Priority: High Current Visit: Yes (7) Poor dentition SNOMED Code(s): 175504153 Code(s): K08.9 - DISORDER OF TEETH AND SUPPORTING STRUCTURES, UNSPECIFIED Status: Chronic Priority: Medium Current Visit: Yes (8) New onset type 2 diabetes mellitus SNOMED Code(s): 56255238 Code(s): E11.9 - TYPE 2 DIABETES MELLITUS WITHOUT COMPLICATIONS Status: Acute Priority: High Current Visit: Yes (9) Vitamin D deficiency SNOMED Code(s): 79169903 Code(s): E55.9 - VITAMIN D DEFICIENCY, UNSPECIFIED Status: Acute Priority: Medium Current Visit: Yes (10) Abnormal echocardiogram SNOMED Code(s): 639216183 Code(s): R93.1 - ABNORMAL FINDINGS ON DX IMAGING OF HEART AND COR CIRC Status: Acute Priority: High Current Visit: Yes (11) Pedal edema SNOMED Code(s): 640880959 Code(s): R60.0 - LOCALIZED EDEMA Status: Chronic Priority: High Current Visit: Yes (12) Renal failure SNOMED Code(s): 51063717 Code(s): N19 - UNSPECIFIED KIDNEY FAILURE Status: Acute Priority: High Current Visit: Yes Qualifiers: Renal failure chronicity: unspecified chronicity Qualified Code(s): N19 - Unspecified kidney failure - Problem List Review Problem List Initiated/Reviewed/Updated: Yes - My Orders Last 24 Hours: My Active Orders 08/08/21 08:18 Patient Status [ADT] Routine 08/08/21 08:20 Nurse Communication: Isolation [RC] ASDIRECTED Positioning, Patient [RC] ASDIRECTED RT Incentive Spirometry [RC] ASDIRECTED PROCALCITONIN [REF] Routine Isolation [COMM] Stat RT Acapella [RESPCARE] Routine 08/08/21 08:22 VITAMIN D,25-HYDROXY [CHEM] Routine 08/08/21 08:23 Blood Glucose Check, Bedside [RC] QIDACANDBED 08/08/21 08:24 Consult to [employer] [CONS] Routine 08/08/21 09:00 Zinc Sulfate [Zincate] 220 mg PO DAILY 08/08/21 Lunch Consistent Carbohydrate Diet [DIET] 08/08/21 11:30 Insulin Lispro [HumaLOG] See Protocol SUBCUT WITHMEALSANDBED - Assessment Assessment:: 08/07/2021 assess: 1// hypoxia/tachipnea with new infiltrates and heart failure symptoms worsening over last 6 months 2// recent uri/bronchitis prob. covid screen ordered.. 3// cardiac enlargment ? etiology. echo and ekg and trop ordered but no hx of cad valvular or other known cause . ? covid and rt heart failure related to microemoli or p.e. 4// increased edema started before weird flu? heart failure and now pneumonia on xray . obesity . 5// cellulitis legs without def. vasculitis and or varicosities . lymphedema. 6// multiple carious teeth no hx of drug and or meth or etoh abuse or use. non smoker. plan o2/ d dimer/ rule out p.e and rt heart failure. ekg rule out silent ami. covid flu /rsv screen/// start nebs echo.// ekg telemety tonight. antibiotics // lasix and heart failure treatment started. screen for diabetes and other causes. diabetic ed and monitor b.s d.e and dietary teaching. boh 08/08/2021 46-year-old female who was a direct admit from the [facility] with concerns over possible new onset elevated BNP. On admission further work-up involved hemoglobin A1c which was 6.7 and troponin which was 0.033. TSH was 3.512. Patient was found to be Covid positive. D-dimer was elevated at 4.38. Patient was sent for a CTA which showed "1. Extensive pulmonary emboli within both sides of the chest which also involve the distal right and left main pulmonary arteries. 2. Minimal decompensation of the right heart is seen. 3. Patchy areas of increased density within the chest most likely representing a combination of Covid pneumonia and superimposed change from pulmonary emboli. Prior to CTA patient had been started on empiric 10 mg Eliquis twice daily for 7 days. This will be continued now with confirmation of her pulmonary emboli. Echocardiogram was obtained and shows 1. Left ventricular ejection fraction, by visual estimation, is 6065%. 2. Normal pattern of LV diastolic filling. 3. Right ventricle is not well visualized in apical views. Unable to assess size or function but appears enlarged in some views. Abnormal septal bounce and some D-shaped septal flattening consistent with pulmonary hypertension. 4. Aortic valve is tricuspid and structurally normal. 5. Mild aortic valve regurgitation. 6. Trace mitral valve regurgitation. 7. Mild cuspid valve regurgitation. 8. The right ventricular systolic pressure is moderately elevated at 54.5 mmHg. 9. 1.3 x 0.2 cm indeterminate linear echodensity attached to posterior mitral leaflet on the left atrial side (frame 4). Differential includes artifact or vegetation. Apical images are too limited for different axis visualization. Consider cardiology consult plus or minus MELQUIADES, correlate clinically. 10. No regional wall motion abnormalities. 11. Technically difficult study with suboptimal image quality, especially apical images. Recommend Definity contrast with future slides. Contacted Dr. De Jesus, cloud systems architect with [facility] in [place] who interpreted the echocardiogram to discuss findings and recommendations. He stated because of patient's Covid symptoms they would likely not perform any intervention at this time. Unfortunately blood cultures had not been obtained yesterday prior to starting patient on antibiotics and we will order these now. We will screen the patient for MRSA but also start her on vancomycin. Patient does has risk factors for endocarditis including her current lower extremity cellulitis and very poor dentition. Because of this Dr. De Jesus recommends patient follow-up with cardiology within 2 weeks after discharge. Otherwise patient continues on dexamethasone and remdesivir for her COVID-19 pneumonia. She remains on 1 L. She has had no leukocytosis and her RBC is 3.56 currently. Hemoglobin is 10.8. Platelet 261,000. Neutrophils are elevated at 84.8%. D-dimer as mentioned prior was 4.38. ABG was obtained in the right radial yesterday showing a pH of 7.48. PCO2 of 40.5. PO2 of 52.0. HCO3 of 29.5. O2 saturations were 88%. Base excess was 5.8. AA gradient was 4 7. This was obtained on room air. Sodium today is 139. Potassium 3.5. Chloride 99. Carbon dioxide 30. Anion gap 13.5. BUN is 25. Creatinine 1.7. GFR is 32. Glucose has been between 170 and 117. Hemoglobin A1c was 6.7. Bilirubin is 0.2. AST is 27, ALT 18, alkaline phosphatase 182. CRP today was 30.2. proBNP was 1544. Protein was 7.2. Albumin was 2.2. Vitamin D was low at 26.0 and patient was started on 5000 units daily supplementation. Overall patient reports she feels okay but she is having leg pain. Advised patient to elevate her extremities due to her edema. She does state that her edema has improved since admission. We discussed follow-up and plan for care. Patient requested that I contact her and I will do the shortly. No acute concerns. Length of stay likely 4 to 5 days pending improvement with Covid symptoms and pedal edema. We will start the patient on 20 mg daily IV push Lasix for now given her renal function and monitor. - Plan Plan:: Pneumonia due to COVID-19 virus Acute hypoxemic respiratory failure * Droplet/airborne precautions * Respiratory therapy consultation * O2 as needed with goal saturations 87 to 95% * I-S/Acapella * Every 48 hour D-dimer checks * Daily labs * 6 mg dexamethasone for 10 days total * Remdesivir for 5 days total * Zinc supplementation * As needed albuterol nebulizer * As needed albuterol MDI * As needed DuoNebs * Prone whenever able * 2 g Rocephin daily * 500 mg azithromycin for 3 days * Ambulate around room * Telemetry * Continuous pulse oximetry Pulmonary emboli * Eliquis 10 mg twice daily for 7 days then transition to 5 mg twice daily * Continuous pulse oximetry * Cardiology follow-up within 2 weeks after discharge (Per Dr. De Jesus, Cardiology) Suspected CHF (congestive heart failure) Pedal edema * 2 g sodium restriction * Echo obtained as noted -poor echo windows * Right ventricle findings skewed by poor windows pulmonary emboli causing right heart strain * Follow-up in 2 weeks after discharge with cardiology per Dr. De Jesus, cardiology. * Elevate lower extremities whenever possible * IPV lasix as ordered New onset type 2 diabetes mellitus * Consistent carbohydrate diet * Dietitian consultation * inclusion paraeducator consultation * 4 times daily before meals and bedtime blood glucose checks * Medium intensity sliding scale insulin * Monitor need for long-acting insulin * Anticipate rise in blood glucose levels due to steroid use as above Vitamin D deficiency * Daily 5000 units supplementation * PCP follow-up Cellulitis * Obtain wound culture if begin to drain * 2 g Rocephin daily * Vancomycin with pharmacy to dose Abnormal Echocardiogram * See echocardiogram report for full details * Very poor windows * Findings consistent with bilateral PEs as above * Indeterminate linear echodensity attached to posterior mitral leaflet on the left atrial side * Discussed case with Dr. De Jesus, cloud systems architect with [facility] in [place] * Recommends blood cultures * They avoid performing MELQUIADES's in Covid positive patients * Recommends follow-up with cardiology 2 weeks after discharge * Recommends MRSA screen * Recommends patient continue antibiotics Renal failure * Suspect baseline CKD however patient rarely sees medical provider * Avoid nephrotoxic agents if possible * Monitor Obesity (BMI 30-39.9) * Dietitian consult Poor dentition * Blood cultures pending * Monitor labs * Increases risk for bacteremia/endocarditis * Outpatient dental follow-up CODE STATUS: Full code PCP: None - needs to establish DVT prophylaxis: Eliquis Disposition: Patient will remain hospitalized for IV antibiotic treatment of cellulitis, questionable pneumonia, and treatment of COVID-19 pneumonia. Likely length of stay 4 to 5 days. Will require cardiology follow-up within 2 weeks after discharge as noted above. <Talat Nogueira - Last Filed: 08/08/21 15:03> - Patient Data Vitals - Most Recent: Last Vital Signs Temp 36.7 C 08/08/21 07:54 Pulse 80 08/08/21 07:54 Resp 20 08/08/21 07:54 BP 118/47 L 08/08/21 09:28 Pulse Ox 92 L 08/08/21 07:54 I&O - Last 24 Hours: Intake & Output 08/08/21 08/08/21 08/08/21 06:59 14:59 22:59 Intake Total 750 240 Output Total 1400 Balance -650 240 Lab Results Last 24 Hours: Laboratory Results - last 24 hr 08/07/21 08/07/21 08/07/21 Range/Units 18:03 18:52 18:59 WBC (3.98-10.04) K/mm3 RBC (3.98-5.22) M/mm3 Hgb (11.2-15.7) gm/dl Hct (34.1-44.9) % MCV (79.4-94.8) fl MCH (25.6-32.2) pg MCHC (32.2-35.5) g/dl RDW Std Deviation (36.4-46.3) fL Plt Count (182-369) K/mm3 MPV (9.4-12.3) fl Neut % (Auto) (34.0-71.1) % Lymph % (Auto) (19.3-51.7) % [place] % (Auto) (4.7-12.5) % Eos % (Auto) (0.7-5.8) Baso % (Auto) (0.1-1.2) % Neut # (Auto) (1.56-6.13) K/mm3 Lymph # (Auto) (1.18-3.74) K/mm3 [place] # (Auto) (0.24-0.36) K/mm3 Eos # (Auto) (0.04-0.36) K/mm3 Baso # (Auto) (0.01-0.08) K/mm3 D-Dimer, Quantitative (0.19-0.50) mg/L Puncture Site ABG pH (7.35-7.45) ABG pCO2 (35.0-45.0) mmHg ABG pO2 (80.0-100.0) mmHg ABG HCO3 (22.0-26.0) meq/L ABG O2 Saturation (96.0-97.0) % ABG Base Excess (-2-2.0) A-a Gradient mmHg O2 Delivery Device Oxygen Flow Rate FiO2 (21.00-100.00) % Sodium (136-145) mEq/L Potassium (3.5-5.1) mEq/L Chloride (98-107) mEq/L Carbon Dioxide (21-32) mEq/L Anion Gap (5-15) BUN (7-18) mg/dL Creatinine (0.55-1.02) mg/dL Est Cr Clr Drug Dosing mL/min Estimated GFR (MDRD) (>60) mL/min BUN/Creatinine Ratio (14-18) Glucose (70-99) mg/dL POC Glucose 137 H (70-99) mg/dL Hemoglobin A1c ( - 5.6) % Calcium (8.5-10.1) mg/dL Total Bilirubin (0.2-1.0) mg/dL AST (15-37) U/L ALT (14-59) U/L Alkaline Phosphatase (46-116) U/L Troponin I 0.033 (0.00-0.056) ng/mL C-Reactive Protein (<1.0) mg/dL NT-Pro-B Natriuret Pep (0-125) pg/mL Total Protein (6.4-8.2) g/dl Albumin (3.4-5.0) g/dl Globulin gm/dL Albumin/Globulin Ratio (1-2) Vitamin D 25-Hydroxy (30.0-100.0) ng/ml TSH 3rd Generation 3.512 (0.358-3.74) uIU/mL Influenza Type A RNA Negative (NEGATIVE) RSV RNA (INAAT) Negative (NEGATIVE) Influenza Type B RNA Negative (NEGATIVE) SARS-CoV-2 RNA (BRENDA) Positive H (NEGATIVE) 08/07/21 08/07/21 08/07/21 Range/Units 19:10 19:10 21:24 WBC (3.98-10.04) K/mm3 RBC (3.98-5.22) M/mm3 Hgb (11.2-15.7) gm/dl Hct (34.1-44.9) % MCV (79.4-94.8) fl MCH (25.6-32.2) pg MCHC (32.2-35.5) g/dl RDW Std Deviation (36.4-46.3) fL Plt Count (182-369) K/mm3 MPV (9.4-12.3) fl Neut % (Auto) (34.0-71.1) % Lymph % (Auto) (19.3-51.7) % [place] % (Auto) (4.7-12.5) % Eos % (Auto) (0.7-5.8) Baso % (Auto) (0.1-1.2) % Neut # (Auto) (1.56-6.13) K/mm3 Lymph # (Auto) (1.18-3.74) K/mm3 [place] # (Auto) (0.24-0.36) K/mm3 Eos # (Auto) (0.04-0.36) K/mm3 Baso # (Auto) (0.01-0.08) K/mm3 D-Dimer, Quantitative 4.38 H (0.19-0.50) mg/L Puncture Site Rt radial ABG pH 7.48 H (7.35-7.45) ABG pCO2 40.5 (35.0-45.0) mmHg ABG pO2 52.0 L (80.0-100.0) mmHg ABG HCO3 29.5 H (22.0-26.0) meq/L ABG O2 Saturation 88.0 L (96.0-97.0) % ABG Base Excess 5.8 H (-2-2.0) A-a Gradient 47 mmHg O2 Delivery Device Room air Oxygen Flow Rate 0.0 FiO2 21.00 (21.00-100.00) % Sodium (136-145) mEq/L Potassium (3.5-5.1) mEq/L Chloride (98-107) mEq/L Carbon Dioxide (21-32) mEq/L Anion Gap (5-15) BUN (7-18) mg/dL Creatinine (0.55-1.02) mg/dL Est Cr Clr Drug Dosing mL/min Estimated GFR (MDRD) (>60) mL/min BUN/Creatinine Ratio (14-18) Glucose (70-99) mg/dL POC Glucose (70-99) mg/dL Hemoglobin A1c 6.7 H ( - 5.6) % Calcium (8.5-10.1) mg/dL Total Bilirubin (0.2-1.0) mg/dL AST (15-37) U/L ALT (14-59) U/L Alkaline Phosphatase (46-116) U/L Troponin I (0.00-0.056) ng/mL C-Reactive Protein (<1.0) mg/dL NT-Pro-B Natriuret Pep (0-125) pg/mL Total Protein (6.4-8.2) g/dl Albumin (3.4-5.0) g/dl Globulin gm/dL Albumin/Globulin Ratio (1-2) Vitamin D 25-Hydroxy (30.0-100.0) ng/ml TSH 3rd Generation (0.358-3.74) uIU/mL Influenza Type A RNA (NEGATIVE) RSV RNA (INAAT) (NEGATIVE) Influenza Type B RNA (NEGATIVE) SARS-CoV-2 RNA (BRENDA) (NEGATIVE) 08/08/21 08/08/21 08/08/21 Range/Units 05:17 05:17 05:17 WBC 6.06 (3.98-10.04) K/mm3 RBC 3.56 L (3.98-5.22) M/mm3 Hgb 10.8 L (11.2-15.7) gm/dl Hct 34.8 (34.1-44.9) % MCV 97.8 H (79.4-94.8) fl MCH 30.3 (25.6-32.2) pg MCHC 31.0 L (32.2-35.5) g/dl RDW Std Deviation 59.7 H (36.4-46.3) fL Plt Count 261 (182-369) K/mm3 MPV 9.1 L (9.4-12.3) fl Neut % (Auto) 84.8 H (34.0-71.1) % Lymph % (Auto) 11.7 L (19.3-51.7) % [place] % (Auto) 2.0 L (4.7-12.5) % Eos % (Auto) 1.0 (0.7-5.8) Baso % (Auto) 0.3 (0.1-1.2) % Neut # (Auto) 5.14 (1.56-6.13) K/mm3 Lymph # (Auto) 0.71 L (1.18-3.74) K/mm3 [place] # (Auto) 0.12 L (0.24-0.36) K/mm3 Eos # (Auto) 0.06 (0.04-0.36) K/mm3 Baso # (Auto) 0.02 (0.01-0.08) K/mm3 D-Dimer, Quantitative (0.19-0.50) mg/L Puncture Site ABG pH (7.35-7.45) ABG pCO2 (35.0-45.0) mmHg ABG pO2 (80.0-100.0) mmHg ABG HCO3 (22.0-26.0) meq/L ABG O2 Saturation (96.0-97.0) % ABG Base Excess (-2-2.0) A-a Gradient mmHg O2 Delivery Device Oxygen Flow Rate FiO2 (21.00-100.00) % Sodium 139 (136-145) mEq/L Potassium 3.5 (3.5-5.1) mEq/L Chloride 99 (98-107) mEq/L Carbon Dioxide 30 (21-32) mEq/L Anion Gap 13.5 (5-15) BUN 25 H (7-18) mg/dL Creatinine 1.7 H (0.55-1.02) mg/dL Est Cr Clr Drug Dosing 37.21 mL/min Estimated GFR (MDRD) 32 (>60) mL/min BUN/Creatinine Ratio 14.7 (14-18) Glucose 117 H (70-99) mg/dL POC Glucose (70-99) mg/dL Hemoglobin A1c ( - 5.6) % Calcium 9.2 (8.5-10.1) mg/dL Total Bilirubin 0.2 (0.2-1.0) mg/dL AST 27 (15-37) U/L ALT 18 (14-59) U/L Alkaline Phosphatase 182 H (46-116) U/L Troponin I (0.00-0.056) ng/mL C-Reactive Protein 30.2 H* (<1.0) mg/dL NT-Pro-B Natriuret Pep 1544 H (0-125) pg/mL Total Protein 7.2 (6.4-8.2) g/dl Albumin 2.2 L (3.4-5.0) g/dl Globulin 5.0 gm/dL Albumin/Globulin Ratio 0.4 L (1-2) Vitamin D 25-Hydroxy (30.0-100.0) ng/ml TSH 3rd Generation (0.358-3.74) uIU/mL Influenza Type A RNA (NEGATIVE) RSV RNA (INAAT) (NEGATIVE) Influenza Type B RNA (NEGATIVE) SARS-CoV-2 RNA (BRENDA) (NEGATIVE) 08/08/21 08/08/21 08/08/21 Range/Units 05:17 07:04 11:43 WBC (3.98-10.04) K/mm3 RBC (3.98-5.22) M/mm3 Hgb (11.2-15.7) gm/dl Hct (34.1-44.9) % MCV (79.4-94.8) fl MCH (25.6-32.2) pg MCHC (32.2-35.5) g/dl RDW Std Deviation (36.4-46.3) fL Plt Count (182-369) K/mm3 MPV (9.4-12.3) fl Neut % (Auto) (34.0-71.1) % Lymph % (Auto) (19.3-51.7) % [place] % (Auto) (4.7-12.5) % Eos % (Auto) (0.7-5.8) Baso % (Auto) (0.1-1.2) % Neut # (Auto) (1.56-6.13) K/mm3 Lymph # (Auto) (1.18-3.74) K/mm3 [place] # (Auto) (0.24-0.36) K/mm3 Eos # (Auto) (0.04-0.36) K/mm3 Baso # (Auto) (0.01-0.08) K/mm3 D-Dimer, Quantitative (0.19-0.50) mg/L Puncture Site ABG pH (7.35-7.45) ABG pCO2 (35.0-45.0) mmHg ABG pO2 (80.0-100.0) mmHg ABG HCO3 (22.0-26.0) meq/L ABG O2 Saturation (96.0-97.0) % ABG Base Excess (-2-2.0) A-a Gradient mmHg O2 Delivery Device Oxygen Flow Rate FiO2 (21.00-100.00) % Sodium (136-145) mEq/L Potassium (3.5-5.1) mEq/L Chloride (98-107) mEq/L Carbon Dioxide (21-32) mEq/L Anion Gap (5-15) BUN (7-18) mg/dL Creatinine (0.55-1.02) mg/dL Est Cr Clr Drug Dosing mL/min Estimated GFR (MDRD) (>60) mL/min BUN/Creatinine Ratio (14-18) Glucose (70-99) mg/dL POC Glucose 167 H 170 H (70-99) mg/dL Hemoglobin A1c ( - 5.6) % Calcium (8.5-10.1) mg/dL Total Bilirubin (0.2-1.0) mg/dL AST (15-37) U/L ALT (14-59) U/L Alkaline Phosphatase (46-116) U/L Troponin I (0.00-0.056) ng/mL C-Reactive Protein (<1.0) mg/dL NT-Pro-B Natriuret Pep (0-125) pg/mL Total Protein (6.4-8.2) g/dl Albumin (3.4-5.0) g/dl Globulin gm/dL Albumin/Globulin Ratio (1-2) Vitamin D 25-Hydroxy 26.0 L (30.0-100.0) ng/ml TSH 3rd Generation (0.358-3.74) uIU/mL Influenza Type A RNA (NEGATIVE) RSV RNA (INAAT) (NEGATIVE) Influenza Type B RNA (NEGATIVE) SARS-CoV-2 RNA (BRENDA) (NEGATIVE) Med Orders - Current: Current Medications Albuterol (Albuterol 0.083% 2.5 Mg/3 Ml Neb Soln) 2.5 mg NEB Q6HRRT PRN PRN Reason: Wheezing Albuterol (Albuterol 6.7 Gm Inhaler) 0 gm INH Q2H PRN PRN Reason: SOB/Wheezing Albuterol/Ipratropium (Albuterol/Ipratropium 3.0-0.5 Mg/3 Ml Neb Soln) 3 ml NEB QIDRT PRN PRN Reason: SOB/Wheezing Apixaban (Apixaban 5 Mg Tab) 10 mg PO BID [facility], [facility]1983 Stop: 08/14/21 21:01 Last Admin: 08/08/21 09:27 Dose: 10 mg Documented by: Cholecalciferol (Cholecalciferol (Vitamin D3) 5,000 Unit Cap) 5,000 unit PO DAILY [facility], [facility]1983 Last Admin: 08/08/21 11:45 Dose: 5,000 unit Documented by: Dexamethasone (Dexamethasone 6 Mg Tablet) 6 mg PO DAILY [facility], [facility]1983 Stop: 08/16/21 09:01 Last Admin: 08/08/21 13:07 Dose: 6 mg Documented by: Furosemide (Furosemide 20 Mg/2 Ml Vial) 20 mg IVPUSH DAILY [facility], 1928–1983 Ceftriaxone Sodium 2 gm/ (Sodium Chloride) 100 mls @ 200 mls/hr IV Q24H [facility], [facility]1983 Stop: 08/11/21 20:29 Last Admin: 08/07/21 19:45 Dose: 200 mls/hr Documented by: Remdesivir 100 mg/ Sodium (Chloride) 250 mls @ 250 mls/hr IV Q24H [facility], [facility]1983 Stop: 08/11/21 22:01 Azithromycin 500 mg/ Sodium (Chloride) 250 mls @ 250 mls/hr IV Q24H [facility], [facility]1983 Stop: 08/10/21 10:59 Last Admin: 08/08/21 11:45 Dose: 250 mls/hr Documented by: Vancomycin HCl 1 gm/Vancomycin HCl 500 mg/ Sodium Chloride 500 mls @ 250 mls/hr IV ONETIME ONE Stop: 08/08/21 16:29 Vancomycin HCl 1 gm/Vancomycin HCl 250 mg/ Sodium Chloride 250 mls @ 166.667 mls/hr IV Q18H [facility], [facility]–1983 Insulin Human Lispro (Insulin Lispro 100 Unit/Ml 3 Ml Kwikpen) 0 unit SUBCUT WITHMEALSANDBED [facility]LY [facility], 1928–1983; Protocol Last Admin: 08/08/21 11:45 Dose: 2 units Documented by: Losartan Potassium (Losartan 25 Mg Tab) 25 mg PO DAILY [facility], [facility]–1983 Last Admin: 08/08/21 09:28 Dose: 25 mg Documented by: Potassium Chloride (Potassium Chloride 20 Meq Tab.Er) 20 meq PO BID [facility], [facility]–1983 Stop: 08/08/21 22:00 Last Admin: 08/08/21 09:28 Dose: 20 meq Documented by: Sodium Chloride (Sodium Chloride 0.9% 10 Ml Syringe) 10 ml FLUSH 0900,2100 [facility], [facility]–1983 Last Admin: 08/08/21 09:28 Dose: 10 ml Documented by: Vancomycin HCl (Pharmacy To Dose - Vancomycin) 1 dose .XX ASDIRECTED PRN PRN Reason: RX TO DOSE VANCO Zinc Sulfate (Zinc Sulfate 220 Mg Cap) 220 mg PO DAILY [facility], [facility]–1983 Last Admin: 08/08/21 09:28 Dose: 220 mg Documented by: Discontinued Medications Dexamethasone (Dexamethasone 6 Mg Tablet) 6 mg PO DAILY [facility], [facility]1983 Last Admin: 08/08/21 01:44 Dose: Not Given Documented by: Dexamethasone (Dexamethasone 6 Mg Tablet) 6 mg PO DAILY [facility], [facility]–1983 Enoxaparin Sodium (Enoxaparin 40 Mg/0.4 Ml Syringe) 40 mg SUBCUT BEDTIME [facility], 1928–1983 Last Admin: 08/07/21 20:00 Dose: 40 mg Documented by: Furosemide (Furosemide 20 Mg/2 Ml Vial) 20 mg IVPUSH NOW ONE Stop: 08/07/21 17:31 Last Admin: 08/07/21 18:53 Dose: 20 mg Documented by: Ceftriaxone Sodium 2 gm/ (Sodium Chloride) 100 mls @ 200 mls/hr IV Q24H [facility], [facility]1983 Last Admin: 08/07/21 19:57 Dose: Not Given Documented by: Remdesivir 200 mg/ Sodium (Chloride) 250 mls @ 250 mls/hr IV ONETIME ONE Stop: 08/07/21 22:01 Last Admin: 08/08/21 01:21 Dose: Not Given Documented by: Remdesivir 200 mg/ Sodium (Chloride) 250 mls @ 250 mls/hr IV ONETIME ONE Stop: 08/08/21 01:59 Last Admin: 08/08/21 01:21 Dose: 250 mls/hr Documented by: Sodium Chloride (Normal Saline) 100 mls @ 60 mls/hr IV ASDIRECTED VIVIAN Stop: 08/08/21 12:00 Last Admin: 08/08/21 10:25 Dose: 60 mls/hr Documented by: Vancomycin HCl 1 gm/Vancomycin HCl 250 mg/ Sodium Chloride 250 mls @ 166.667 mls/hr IV Q18H VIVIAN Iopamidol (Iopamidol 755 Mg/Ml 100 Ml Bottle) 100 ml IVPUSH ONETIME ONE Stop: 08/08/21 09:45 Last Admin: 08/08/21 10:24 Dose: 100 ml Documented by: Sodium Chloride (Sodium Chloride 0.9% 10 Ml Syringe) 10 ml FLUSH ONETIME ONE Stop: 08/08/21 09:45 Last Admin: 08/08/21 11:47 Dose: 10 ml Documented by: - Patient Data Lab Results Last 24 hrs: Laboratory Results - last 24 hr 08/07/21 08/07/21 08/07/21 Range/Units 18:03 18:52 18:59 WBC (3.98-10.04) K/mm3 RBC (3.98-5.22) M/mm3 Hgb (11.2-15.7) gm/dl Hct (34.1-44.9) % MCV (79.4-94.8) fl MCH (25.6-32.2) pg MCHC (32.2-35.5) g/dl RDW Std Deviation (36.4-46.3) fL Plt Count (182-369) K/mm3 MPV (9.4-12.3) fl Neut % (Auto) (34.0-71.1) % Lymph % (Auto) (19.3-51.7) % [place] % (Auto) (4.7-12.5) % Eos % (Auto) (0.7-5.8) Baso % (Auto) (0.1-1.2) % Neut # (Auto) (1.56-6.13) K/mm3 Lymph # (Auto) (1.18-3.74) K/mm3 [place] # (Auto) (0.24-0.36) K/mm3 Eos # (Auto) (0.04-0.36) K/mm3 Baso # (Auto) (0.01-0.08) K/mm3 D-Dimer, Quantitative (0.19-0.50) mg/L Puncture Site ABG pH (7.35-7.45) ABG pCO2 (35.0-45.0) mmHg ABG pO2 (80.0-100.0) mmHg ABG HCO3 (22.0-26.0) meq/L ABG O2 Saturation (96.0-97.0) % ABG Base Excess (-2-2.0) A-a Gradient mmHg O2 Delivery Device Oxygen Flow Rate FiO2 (21.00-100.00) % Sodium (136-145) mEq/L Potassium (3.5-5.1) mEq/L Chloride (98-107) mEq/L Carbon Dioxide (21-32) mEq/L Anion Gap (5-15) BUN (7-18) mg/dL Creatinine (0.55-1.02) mg/dL Est Cr Clr Drug Dosing mL/min Estimated GFR (MDRD) (>60) mL/min BUN/Creatinine Ratio (14-18) Glucose (70-99) mg/dL POC Glucose 137 H (70-99) mg/dL Hemoglobin A1c ( - 5.6) % Calcium (8.5-10.1) mg/dL Total Bilirubin (0.2-1.0) mg/dL AST (15-37) U/L ALT (14-59) U/L Alkaline Phosphatase (46-116) U/L Troponin I 0.033 (0.00-0.056) ng/mL C-Reactive Protein (<1.0) mg/dL NT-Pro-B Natriuret Pep (0-125) pg/mL Total Protein (6.4-8.2) g/dl Albumin (3.4-5.0) g/dl Globulin gm/dL Albumin/Globulin Ratio (1-2) Vitamin D 25-Hydroxy (30.0-100.0) ng/ml TSH 3rd Generation 3.512 (0.358-3.74) uIU/mL Influenza Type A RNA Negative (NEGATIVE) RSV RNA (INAAT) Negative (NEGATIVE) Influenza Type B RNA Negative (NEGATIVE) SARS-CoV-2 RNA (BRENDA) Positive H (NEGATIVE) 08/07/21 08/07/21 08/07/21 Range/Units 19:10 19:10 21:24 WBC (3.98-10.04) K/mm3 RBC (3.98-5.22) M/mm3 Hgb (11.2-15.7) gm/dl Hct (34.1-44.9) % MCV (79.4-94.8) fl MCH (25.6-32.2) pg MCHC (32.2-35.5) g/dl RDW Std Deviation (36.4-46.3) fL Plt Count (182-369) K/mm3 MPV (9.4-12.3) fl Neut % (Auto) (34.0-71.1) % Lymph % (Auto) (19.3-51.7) % [place] % (Auto) (4.7-12.5) % Eos % (Auto) (0.7-5.8) Baso % (Auto) (0.1-1.2) % Neut # (Auto) (1.56-6.13) K/mm3 Lymph # (Auto) (1.18-3.74) K/mm3 [place] # (Auto) (0.24-0.36) K/mm3 Eos # (Auto) (0.04-0.36) K/mm3 Baso # (Auto) (0.01-0.08) K/mm3 D-Dimer, Quantitative 4.38 H (0.19-0.50) mg/L Puncture Site Rt radial ABG pH 7.48 H (7.35-7.45) ABG pCO2 40.5 (35.0-45.0) mmHg ABG pO2 52.0 L (80.0-100.0) mmHg ABG HCO3 29.5 H (22.0-26.0) meq/L ABG O2 Saturation 88.0 L (96.0-97.0) % ABG Base Excess 5.8 H (-2-2.0) A-a Gradient 47 mmHg O2 Delivery Device Room air Oxygen Flow Rate 0.0 FiO2 21.00 (21.00-100.00) % Sodium (136-145) mEq/L Potassium (3.5-5.1) mEq/L Chloride (98-107) mEq/L Carbon Dioxide (21-32) mEq/L Anion Gap (5-15) BUN (7-18) mg/dL Creatinine (0.55-1.02) mg/dL Est Cr Clr Drug Dosing mL/min Estimated GFR (MDRD) (>60) mL/min BUN/Creatinine Ratio (14-18) Glucose (70-99) mg/dL POC Glucose (70-99) mg/dL Hemoglobin A1c 6.7 H ( - 5.6) % Calcium (8.5-10.1) mg/dL Total Bilirubin (0.2-1.0) mg/dL AST (15-37) U/L ALT (14-59) U/L Alkaline Phosphatase (46-116) U/L Troponin I (0.00-0.056) ng/mL C-Reactive Protein (<1.0) mg/dL NT-Pro-B Natriuret Pep (0-125) pg/mL Total Protein (6.4-8.2) g/dl Albumin (3.4-5.0) g/dl Globulin gm/dL Albumin/Globulin Ratio (1-2) Vitamin D 25-Hydroxy (30.0-100.0) ng/ml TSH 3rd Generation (0.358-3.74) uIU/mL Influenza Type A RNA (NEGATIVE) RSV RNA (INAAT) (NEGATIVE) Influenza Type B RNA (NEGATIVE) SARS-CoV-2 RNA (BRENDA) (NEGATIVE) 08/08/21 08/08/21 08/08/21 Range/Units 05:17 05:17 05:17 WBC 6.06 (3.98-10.04) K/mm3 RBC 3.56 L (3.98-5.22) M/mm3 Hgb 10.8 L (11.2-15.7) gm/dl Hct 34.8 (34.1-44.9) % MCV 97.8 H (79.4-94.8) fl MCH 30.3 (25.6-32.2) pg MCHC 31.0 L (32.2-35.5) g/dl RDW Std Deviation 59.7 H (36.4-46.3) fL Plt Count 261 (182-369) K/mm3 MPV 9.1 L (9.4-12.3) fl Neut % (Auto) 84.8 H (34.0-71.1) % Lymph % (Auto) 11.7 L (19.3-51.7) % [place] % (Auto) 2.0 L (4.7-12.5) % Eos % (Auto) 1.0 (0.7-5.8) Baso % (Auto) 0.3 (0.1-1.2) % Neut # (Auto) 5.14 (1.56-6.13) K/mm3 Lymph # (Auto) 0.71 L (1.18-3.74) K/mm3 [place] # (Auto) 0.12 L (0.24-0.36) K/mm3 Eos # (Auto) 0.06 (0.04-0.36) K/mm3 Baso # (Auto) 0.02 (0.01-0.08) K/mm3 D-Dimer, Quantitative (0.19-0.50) mg/L Puncture Site ABG pH (7.35-7.45) ABG pCO2 (35.0-45.0) mmHg ABG pO2 (80.0-100.0) mmHg ABG HCO3 (22.0-26.0) meq/L ABG O2 Saturation (96.0-97.0) % ABG Base Excess (-2-2.0) A-a Gradient mmHg O2 Delivery Device Oxygen Flow Rate FiO2 (21.00-100.00) % Sodium 139 (136-145) mEq/L Potassium 3.5 (3.5-5.1) mEq/L Chloride 99 (98-107) mEq/L Carbon Dioxide 30 (21-32) mEq/L Anion Gap 13.5 (5-15) BUN 25 H (7-18) mg/dL Creatinine 1.7 H (0.55-1.02) mg/dL Est Cr Clr Drug Dosing 37.21 mL/min Estimated GFR (MDRD) 32 (>60) mL/min BUN/Creatinine Ratio 14.7 (14-18) Glucose 117 H (70-99) mg/dL POC Glucose (70-99) mg/dL Hemoglobin A1c ( - 5.6) % Calcium 9.2 (8.5-10.1) mg/dL Total Bilirubin 0.2 (0.2-1.0) mg/dL AST 27 (15-37) U/L ALT 18 (14-59) U/L Alkaline Phosphatase 182 H (46-116) U/L Troponin I (0.00-0.056) ng/mL C-Reactive Protein 30.2 H* (<1.0) mg/dL NT-Pro-B Natriuret Pep 1544 H (0-125) pg/mL Total Protein 7.2 (6.4-8.2) g/dl Albumin 2.2 L (3.4-5.0) g/dl Globulin 5.0 gm/dL Albumin/Globulin Ratio 0.4 L (1-2) Vitamin D 25-Hydroxy (30.0-100.0) ng/ml TSH 3rd Generation (0.358-3.74) uIU/mL Influenza Type A RNA (NEGATIVE) RSV RNA (INAAT) (NEGATIVE) Influenza Type B RNA (NEGATIVE) SARS-CoV-2 RNA (BRENDA) (NEGATIVE) 08/08/21 08/08/21 08/08/21 Range/Units 05:17 07:04 11:43 WBC (3.98-10.04) K/mm3 RBC (3.98-5.22) M/mm3 Hgb (11.2-15.7) gm/dl Hct (34.1-44.9) % MCV (79.4-94.8) fl MCH (25.6-32.2) pg MCHC (32.2-35.5) g/dl RDW Std Deviation (36.4-46.3) fL Plt Count (182-369) K/mm3 MPV (9.4-12.3) fl Neut % (Auto) (34.0-71.1) % Lymph % (Auto) (19.3-51.7) % [place] % (Auto) (4.7-12.5) % Eos % (Auto) (0.7-5.8) Baso % (Auto) (0.1-1.2) % Neut # (Auto) (1.56-6.13) K/mm3 Lymph # (Auto) (1.18-3.74) K/mm3 [place] # (Auto) (0.24-0.36) K/mm3 Eos # (Auto) (0.04-0.36) K/mm3 Baso # (Auto) (0.01-0.08) K/mm3 D-Dimer, Quantitative (0.19-0.50) mg/L Puncture Site ABG pH (7.35-7.45) ABG pCO2 (35.0-45.0) mmHg ABG pO2 (80.0-100.0) mmHg ABG HCO3 (22.0-26.0) meq/L ABG O2 Saturation (96.0-97.0) % ABG Base Excess (-2-2.0) A-a Gradient mmHg O2 Delivery Device Oxygen Flow Rate FiO2 (21.00-100.00) % Sodium (136-145) mEq/L Potassium (3.5-5.1) mEq/L Chloride (98-107) mEq/L Carbon Dioxide (21-32) mEq/L Anion Gap (5-15) BUN (7-18) mg/dL Creatinine (0.55-1.02) mg/dL Est Cr Clr Drug Dosing mL/min Estimated GFR (MDRD) (>60) mL/min BUN/Creatinine Ratio (14-18) Glucose (70-99) mg/dL POC Glucose 167 H 170 H (70-99) mg/dL Hemoglobin A1c ( - 5.6) % Calcium (8.5-10.1) mg/dL Total Bilirubin (0.2-1.0) mg/dL AST (15-37) U/L ALT (14-59) U/L Alkaline Phosphatase (46-116) U/L Troponin I (0.00-0.056) ng/mL C-Reactive Protein (<1.0) mg/dL NT-Pro-B Natriuret Pep (0-125) pg/mL Total Protein (6.4-8.2) g/dl Albumin (3.4-5.0) g/dl Globulin gm/dL Albumin/Globulin Ratio (1-2) Vitamin D 25-Hydroxy 26.0 L (30.0-100.0) ng/ml TSH 3rd Generation (0.358-3.74) uIU/mL Influenza Type A RNA (NEGATIVE) RSV RNA (INAAT) (NEGATIVE) Influenza Type B RNA (NEGATIVE) SARS-CoV-2 RNA (BRENDA) (NEGATIVE) Result Diagrams: 08/08/21 05:17 08/08/21 05:17 Sepsis Event Note - Focused Exam Vital Signs: Vital Signs Temp Pulse Resp BP Pulse Ox 08/08/21 09:28 118/47 L 08/08/21 07:54 36.7 C 80 20 118/47 L 92 L 08/08/21 04:59 93 20 112/60 91 L - Free Text/Narrative Note: I have seen and examined the patient independently of Jay Valdez PA-C, and have discussed the case with him. I have reviewed the orders and agree with the plan of care for this patient as outlined by him. Please see orders.
[2021-08-08] MEDS: Apixaban 5 MG Tab PO SCH ×2 (09:27→20:32)
[2021-08-08] MEDS: Potassium Chloride 20 MEQ Tab.ER PO SCH ×2 (09:28→20:31)
[2021-08-08] MEDS: Losartan 25 MG Tab PO SCH (09:28)
[2021-08-08] MEDS: Zinc Sulfate 220 MG Cap PO SCH (09:28)
[2021-08-08] MEDS: Sodium Chloride 0.9% 10 ML Syringe FLUSH SCH ×2 (09:28→20:51)
[2021-08-08] MEDS ORDERED: Albuterol/Ipratropium 3.0-0.5 MG/3 ML Neb Soln NEB PRN (09:35)
[2021-08-08] MEDS ORDERED: Albuterol 6.7 GM Inhaler INH PRN (09:35)
[2021-08-08] MEDS ORDERED: Sodium Chloride 0.9% 10 ML Syringe FLUSH ONE (09:44)
[2021-08-08] MEDS ORDERED: Iopamidol 755 Mg/ML 100 ML Bottle IVPUSH ONE (09:44)
[2021-08-08] MEDS ORDERED: Sodium Chloride 0.9% 100 ML IV SCH (09:45)
--- NOTE | 2021-08-08 10:57 | CT ---
CT chest Technique: Multiple axial sections were obtained from above the lung apices inferiorly through the lung bases. Intravenous contrast was utilized. Study has been performed as a pulmonary angiogram protocol. Comparison: No prior chest imaging is available. Findings: Pulmonary emboli are seen within the distal right main pulmonary artery. Slightly smaller pulmonary emboli are seen within the distal left pulmonary artery. Additional pulmonary emboli are seen to extend into upper lobes and lower lobe pulmonary arteries on both sides involving the segmental and subsegmental branches. Minimal bowing of the interventricular septum is compatible with minimal right ventricular decompensation. Thoracic aorta shows no aneurysm. Small lymph nodes are seen believed to be within normal limits. No pericardial thickening is seen. Small portion of the visualized upper abdominal structures show nothing acute. Patchy areas of increased density are seen within the lung. Findings could represent mild COVID pneumonia as well as additional superimposed change from the pulmonary emboli within both lung bases. Bone window settings were reviewed. Scattered degenerative change is noted within the spine with scoliosis. No acute osseous abnormality is appreciated. Impression: 1. Extensive pulmonary emboli within both sides of the chest which also involve the distal right and left main pulmonary arteries. 2. Minimal decompensation of the right heart is seen. 3. Patchy areas of increased density within the chest most likely representing a combination of COVID pneumonia and superimposed change from the pulmonary emboli. Diagnostic code #5
[2021-08-08] MEDS: Cholecalciferol (Vitamin D3) 5,000 UNIT Cap PO SCH (11:45)
[2021-08-08] MEDS: Insulin Lispro 100 Unit/ML 3 ML KwikPen SUBCUT SCH ×3 (11:45→20:34)
[2021-08-08] MEDS: Azithromycin 500 MG in Sodium Chloride 0.9% 250 ML IV SCH (11:45)
[2021-08-08] MEDS ORDERED: Vancomycin 1 GM, Vancomycin 500 MG in Sodium Chloride 0.9% 500 ML IV ONE (14:30)
[2021-08-08] MEDS: Furosemide 20 MG/2 ML VIAL IVPUSH SCH (15:02)
[2021-08-08] MEDS ORDERED: traZODone 50 MG Tab PO PRN (20:14)
[2021-08-08] MEDS: cefTRIAXone 2 GM in Sodium Chloride 0.9% 100 ML IV SCH (20:31)
[2021-08-08] MEDS: REMDESIVIR 100 MG in Sodium Chloride 0.9% 250 ML IV SCH (22:24)
[2021-08-09] MEDS ORDERED: Hyaluronidase, Human Recombinant 150 Units/1 ML SDV SUBCUT ONE (00:07)
[2021-08-09] MEDS ORDERED: Sodium Chloride 0.9% 250 ML ONE (01:17)
--- NOTE | 2021-08-09 07:08 | PCM.PN ---
- General Info Date of Service: 08/09/21 Admission Dx/Problem (Free Text): Admission Diagnosis/Problem Admission Diagnosis/Problem Congestive heart failure/hypoxia Subjective Update: The patient is a 46-year-old lady who was admitted to acute hospitalization on August 07, 2021 as a direct admit from [facility]. The patient also has been diagnosed with extensive bilateral pulmonary emboli. The patient says that she still feels short of breath. Patient has been tolerating her diet. She has no other complaints currently. Functional Status: Reports: Pain Controlled, Tolerating Diet. Denies: New Symptoms - Review of Systems General: Reports: No Symptoms HEENT: Reports: No Symptoms Pulmonary: Reports: Shortness of Breath, Cough Cardiovascular: Reports: No Symptoms Gastrointestinal: Reports: No Symptoms Genitourinary: Reports: No Symptoms Musculoskeletal: Reports: No Symptoms Skin: Reports: No Symptoms Neurological: Reports: No Symptoms Psychiatric: Reports: No Symptoms - Patient Data Vitals - Most Recent: Last Vital Signs Temp 36.5 C 08/09/21 04:00 Pulse 77 08/09/21 04:00 Resp 20 08/09/21 04:00 BP 103/47 L 08/09/21 04:00 Pulse Ox 93 L 08/09/21 04:00 Weight - Most Recent: 103.102 kg I&O - Last 24 Hours: Intake & Output 08/08/21 08/09/21 08/09/21 22:59 06:59 14:59 Intake Total 1410 1350 Output Total 1300 850 Balance 110 500 Lab Results Last 24 Hours: Laboratory Results - last 24 hr 08/08/21 08/08/21 08/08/21 Range/Units 05:17 05:17 05:17 WBC (3.98-10.04) K/mm3 RBC (3.98-5.22) M/mm3 Hgb (11.2-15.7) gm/dl Hct (34.1-44.9) % MCV (79.4-94.8) fl MCH (25.6-32.2) pg MCHC (32.2-35.5) g/dl RDW Std Deviation (36.4-46.3) fL Plt Count (182-369) K/mm3 MPV (9.4-12.3) fl Neut % (Auto) (34.0-71.1) % Lymph % (Auto) (19.3-51.7) % [place] % (Auto) (4.7-12.5) % Eos % (Auto) (0.7-5.8) Baso % (Auto) (0.1-1.2) % Neut # (Auto) (1.56-6.13) K/mm3 Lymph # (Auto) (1.18-3.74) K/mm3 [place] # (Auto) (0.24-0.36) K/mm3 Eos # (Auto) (0.04-0.36) K/mm3 Baso # (Auto) (0.01-0.08) K/mm3 POC Glucose (70-99) mg/dL C-Reactive Protein 30.2 H* (<1.0) mg/dL NT-Pro-B Natriuret Pep 1544 H (0-125) pg/mL Vitamin D 25-Hydroxy (30.0-100.0) ng/ml Procalcitonin 0.23 H ng/mL MRSA (PCR) 08/08/21 08/08/21 08/08/21 Range/Units 05:17 07:04 11:43 WBC (3.98-10.04) K/mm3 RBC (3.98-5.22) M/mm3 Hgb (11.2-15.7) gm/dl Hct (34.1-44.9) % MCV (79.4-94.8) fl MCH (25.6-32.2) pg MCHC (32.2-35.5) g/dl RDW Std Deviation (36.4-46.3) fL Plt Count (182-369) K/mm3 MPV (9.4-12.3) fl Neut % (Auto) (34.0-71.1) % Lymph % (Auto) (19.3-51.7) % [place] % (Auto) (4.7-12.5) % Eos % (Auto) (0.7-5.8) Baso % (Auto) (0.1-1.2) % Neut # (Auto) (1.56-6.13) K/mm3 Lymph # (Auto) (1.18-3.74) K/mm3 [place] # (Auto) (0.24-0.36) K/mm3 Eos # (Auto) (0.04-0.36) K/mm3 Baso # (Auto) (0.01-0.08) K/mm3 POC Glucose 167 H 170 H (70-99) mg/dL C-Reactive Protein (<1.0) mg/dL NT-Pro-B Natriuret Pep (0-125) pg/mL Vitamin D 25-Hydroxy 26.0 L (30.0-100.0) ng/ml Procalcitonin ng/mL MRSA (PCR) 08/08/21 08/08/21 08/08/21 Range/Units 16:12 16:15 20:33 WBC (3.98-10.04) K/mm3 RBC (3.98-5.22) M/mm3 Hgb (11.2-15.7) gm/dl Hct (34.1-44.9) % MCV (79.4-94.8) fl MCH (25.6-32.2) pg MCHC (32.2-35.5) g/dl RDW Std Deviation (36.4-46.3) fL Plt Count (182-369) K/mm3 MPV (9.4-12.3) fl Neut % (Auto) (34.0-71.1) % Lymph % (Auto) (19.3-51.7) % [place] % (Auto) (4.7-12.5) % Eos % (Auto) (0.7-5.8) Baso % (Auto) (0.1-1.2) % Neut # (Auto) (1.56-6.13) K/mm3 Lymph # (Auto) (1.18-3.74) K/mm3 [place] # (Auto) (0.24-0.36) K/mm3 Eos # (Auto) (0.04-0.36) K/mm3 Baso # (Auto) (0.01-0.08) K/mm3 POC Glucose 210 H 155 H (70-99) mg/dL C-Reactive Protein (<1.0) mg/dL NT-Pro-B Natriuret Pep (0-125) pg/mL Vitamin D 25-Hydroxy (30.0-100.0) ng/ml Procalcitonin ng/mL MRSA (PCR) Negative 08/09/21 08/09/21 Range/Units 06:04 06:07 WBC 6.79 (3.98-10.04) K/mm3 RBC 3.38 L (3.98-5.22) M/mm3 Hgb 10.1 L (11.2-15.7) gm/dl Hct 33.4 L (34.1-44.9) % MCV 98.8 H (79.4-94.8) fl MCH 29.9 (25.6-32.2) pg MCHC 30.2 L (32.2-35.5) g/dl RDW Std Deviation 60.8 H (36.4-46.3) fL Plt Count 315 (182-369) K/mm3 MPV 9.0 L (9.4-12.3) fl Neut % (Auto) 71.0 (34.0-71.1) % Lymph % (Auto) 21.4 (19.3-51.7) % [place] % (Auto) 7.5 (4.7-12.5) % Eos % (Auto) 0 L (0.7-5.8) Baso % (Auto) 0.0 L (0.1-1.2) % Neut # (Auto) 4.82 (1.56-6.13) K/mm3 Lymph # (Auto) 1.45 (1.18-3.74) K/mm3 [place] # (Auto) 0.51 H (0.24-0.36) K/mm3 Eos # (Auto) 0.00 L (0.04-0.36) K/mm3 Baso # (Auto) 0.00 L (0.01-0.08) K/mm3 POC Glucose 137 H (70-99) mg/dL C-Reactive Protein (<1.0) mg/dL NT-Pro-B Natriuret Pep (0-125) pg/mL Vitamin D 25-Hydroxy (30.0-100.0) ng/ml Procalcitonin ng/mL MRSA (PCR) Med Orders - Current: Current Medications Albuterol (Albuterol 0.083% 2.5 Mg/3 Ml Neb Soln) 2.5 mg NEB Q6HRRT PRN PRN Reason: Wheezing Albuterol (Albuterol 6.7 Gm Inhaler) 0 gm INH Q2H PRN PRN Reason: SOB/Wheezing Albuterol/Ipratropium (Albuterol/Ipratropium 3.0-0.5 Mg/3 Ml Neb Soln) 3 ml NEB QIDRT PRN PRN Reason: SOB/Wheezing Apixaban (Apixaban 5 Mg Tab) 10 mg PO BID [facility] Stop: 08/14/21 21:01 Last Admin: 08/08/21 20:32 Dose: 10 mg Documented by: Cholecalciferol (Cholecalciferol (Vitamin D3) 5,000 Unit Cap) 5,000 unit PO DAILY [facility] Last Admin: 08/08/21 11:45 Dose: 5,000 unit Documented by: Dexamethasone (Dexamethasone 6 Mg Tablet) 6 mg PO DAILY [facility] Stop: 08/16/21 09:01 Last Admin: 08/08/21 13:07 Dose: 6 mg Documented by: Furosemide (Furosemide 20 Mg/2 Ml Vial) 20 mg IVPUSH DAILY [facility] Last Admin: 08/08/21 15:02 Dose: 20 mg Documented by: Ceftriaxone Sodium 2 gm/ (Sodium Chloride) 100 mls @ 200 mls/hr IV Q24H [facility] Stop: 08/11/21 20:29 Last Admin: 08/08/21 20:31 Dose: 200 mls/hr Documented by: Remdesivir 100 mg/ Sodium (Chloride) 250 mls @ 250 mls/hr IV Q24H [facility] Stop: 08/11/21 22:01 Last Admin: 08/08/21 22:24 Dose: 250 mls/hr Documented by: Azithromycin 500 mg/ Sodium (Chloride) 250 mls @ 250 mls/hr IV Q24H [facility] Stop: 08/10/21 10:59 Last Admin: 08/08/21 11:45 Dose: 250 mls/hr Documented by: Vancomycin HCl 1 gm/Vancomycin HCl 250 mg/ Sodium Chloride 250 mls @ 166.667 mls/hr IV Q18H [facility] Insulin Human Lispro (Insulin Lispro 100 Unit/Ml 3 Ml Kwikpen) 0 unit SUBCUT WITHMEALSANDBED [facility]; Protocol Last Admin: 08/08/21 20:34 Dose: 2 units Documented by: Losartan Potassium (Losartan 25 Mg Tab) 25 mg PO DAILY [facility] Last Admin: 08/08/21 09:28 Dose: 25 mg Documented by: Sodium Chloride (Sodium Chloride 0.9% 10 Ml Syringe) 10 ml FLUSH 0900,2100 [facility] Last Admin: 08/08/21 20:51 Dose: 10 ml Documented by: Trazodone HCl (Trazodone 50 Mg Tab) 50 mg PO BEDTIME PRN PRN Reason: Insomnia Last Admin: 08/08/21 20:32 Dose: 50 mg Documented by: Vancomycin HCl (Pharmacy To Dose - Vancomycin) 1 dose .XX ASDIRECTED PRN PRN Reason: RX TO DOSE VANCO Zinc Sulfate (Zinc Sulfate 220 Mg Cap) 220 mg PO DAILY [facility] Last Admin: 08/08/21 09:28 Dose: 220 mg Documented by: Discontinued Medications Dexamethasone (Dexamethasone 6 Mg Tablet) 6 mg PO DAILY [facility] Last Admin: 08/08/21 01:44 Dose: Not Given Documented by: Dexamethasone (Dexamethasone 6 Mg Tablet) 6 mg PO DAILY [facility] Enoxaparin Sodium (Enoxaparin 40 Mg/0.4 Ml Syringe) 40 mg SUBCUT BEDTIME [facility] Last Admin: 08/07/21 20:00 Dose: 40 mg Documented by: Furosemide (Furosemide 20 Mg/2 Ml Vial) 20 mg IVPUSH NOW ONE Stop: 08/07/21 17:31 Last Admin: 08/07/21 18:53 Dose: 20 mg Documented by: Hyaluronidase (Hyaluronidase, Human Recombinant 150 Units/1 Ml Sdv) 150 units SUBCUT ONETIME ONE Stop: 08/09/21 00:08 Last Admin: 08/09/21 00:26 Dose: 150 units Documented by: Ceftriaxone Sodium 2 gm/ (Sodium Chloride) 100 mls @ 200 mls/hr IV Q24H [facility] Last Admin: 08/07/21 19:57 Dose: Not Given Documented by: Remdesivir 200 mg/ Sodium (Chloride) 250 mls @ 250 mls/hr IV ONETIME ONE Stop: 08/07/21 22:01 Last Admin: 08/08/21 01:21 Dose: Not Given Documented by: Remdesivir 200 mg/ Sodium (Chloride) 250 mls @ 250 mls/hr IV ONETIME ONE Stop: 08/08/21 01:59 Last Admin: 08/08/21 01:21 Dose: 250 mls/hr Documented by: Sodium Chloride (Normal Saline) 100 mls @ 60 mls/hr IV ASDIRECTED [facility] Stop: 08/08/21 12:00 Last Admin: 08/08/21 10:25 Dose: 60 mls/hr Documented by: Vancomycin HCl 1 gm/Vancomycin HCl 500 mg/ Sodium Chloride 500 mls @ 250 mls/hr IV ONETIME ONE Stop: 08/08/21 16:29 Last Admin: 08/08/21 15:01 Dose: 250 mls/hr Documented by: Vancomycin HCl 1 gm/Vancomycin HCl 250 mg/ Sodium Chloride 250 mls @ 166.667 mls/hr IV Q18H [facility] Sodium Chloride (Normal Saline) Confirm Administered Dose 250 mls @ as directed .ROUTE .STK-MED ONE Stop: 08/09/21 01:18 Last Admin: 08/09/21 02:24 Dose: Not Given Documented by: Iopamidol (Iopamidol 755 Mg/Ml 100 Ml Bottle) 100 ml IVPUSH ONETIME ONE Stop: 08/08/21 09:45 Last Admin: 08/08/21 10:24 Dose: 100 ml Documented by: Potassium Chloride (Potassium Chloride 20 Meq Tab.Er) 20 meq PO BID [facility] Stop: 08/08/21 22:00 Last Admin: 08/08/21 20:31 Dose: 20 meq Documented by: Sodium Chloride (Sodium Chloride 0.9% 10 Ml Syringe) 10 ml FLUSH ONETIME ONE Stop: 08/08/21 09:45 Last Admin: 08/08/21 11:47 Dose: 10 ml Documented by: - Exam Quality Assessment: Supplemental Oxygen, DVT Prophylaxis General: Alert, Oriented, Cooperative, No Acute Distress HEENT: Pupils Equal, Pupils Reactive, EOMI, Mucous Membr. Moist/[place] (Poor dentition) Neck: Supple, Trachea Midline Lungs: Decreased Breath Sounds, Crackles Cardiovascular: Regular Rate, Regular Rhythm GI/Abdominal Exam: Normal Bowel Sounds, Soft, Non-Tender, No Distention. No: Guarding, Rigid, Rebound (Female) Exam: Deferred Back Exam: Normal Inspection, Full Range of Motion Extremities: Normal Inspection, No Pedal Edema Skin: Warm, Dry, Intact Neurological: No New Focal Deficit Psy/Mental Status: Alert, Normal Affect, Normal Mood - Patient Data Lab Results Last 24 hrs: Laboratory Results - last 24 hr 08/08/21 08/08/21 08/08/21 Range/Units 05:17 05:17 05:17 WBC (3.98-10.04) K/mm3 RBC (3.98-5.22) M/mm3 Hgb (11.2-15.7) gm/dl Hct (34.1-44.9) % MCV (79.4-94.8) fl MCH (25.6-32.2) pg MCHC (32.2-35.5) g/dl RDW Std Deviation (36.4-46.3) fL Plt Count (182-369) K/mm3 MPV (9.4-12.3) fl Neut % (Auto) (34.0-71.1) % Lymph % (Auto) (19.3-51.7) % [place] % (Auto) (4.7-12.5) % Eos % (Auto) (0.7-5.8) Baso % (Auto) (0.1-1.2) % Neut # (Auto) (1.56-6.13) K/mm3 Lymph # (Auto) (1.18-3.74) K/mm3 [place] # (Auto) (0.24-0.36) K/mm3 Eos # (Auto) (0.04-0.36) K/mm3 Baso # (Auto) (0.01-0.08) K/mm3 POC Glucose (70-99) mg/dL C-Reactive Protein 30.2 H* (<1.0) mg/dL NT-Pro-B Natriuret Pep 1544 H (0-125) pg/mL Vitamin D 25-Hydroxy (30.0-100.0) ng/ml Procalcitonin 0.23 H ng/mL MRSA (PCR) 08/08/21 08/08/21 08/08/21 Range/Units 05:17 07:04 11:43 WBC (3.98-10.04) K/mm3 RBC (3.98-5.22) M/mm3 Hgb (11.2-15.7) gm/dl Hct (34.1-44.9) % MCV (79.4-94.8) fl MCH (25.6-32.2) pg MCHC (32.2-35.5) g/dl RDW Std Deviation (36.4-46.3) fL Plt Count (182-369) K/mm3 MPV (9.4-12.3) fl Neut % (Auto) (34.0-71.1) % Lymph % (Auto) (19.3-51.7) % [place] % (Auto) (4.7-12.5) % Eos % (Auto) (0.7-5.8) Baso % (Auto) (0.1-1.2) % Neut # (Auto) (1.56-6.13) K/mm3 Lymph # (Auto) (1.18-3.74) K/mm3 [place] # (Auto) (0.24-0.36) K/mm3 Eos # (Auto) (0.04-0.36) K/mm3 Baso # (Auto) (0.01-0.08) K/mm3 POC Glucose 167 H 170 H (70-99) mg/dL C-Reactive Protein (<1.0) mg/dL NT-Pro-B Natriuret Pep (0-125) pg/mL Vitamin D 25-Hydroxy 26.0 L (30.0-100.0) ng/ml Procalcitonin ng/mL MRSA (PCR) 08/08/21 08/08/21 08/08/21 Range/Units 16:12 16:15 20:33 WBC (3.98-10.04) K/mm3 RBC (3.98-5.22) M/mm3 Hgb (11.2-15.7) gm/dl Hct (34.1-44.9) % MCV (79.4-94.8) fl MCH (25.6-32.2) pg MCHC (32.2-35.5) g/dl RDW Std Deviation (36.4-46.3) fL Plt Count (182-369) K/mm3 MPV (9.4-12.3) fl Neut % (Auto) (34.0-71.1) % Lymph % (Auto) (19.3-51.7) % [place] % (Auto) (4.7-12.5) % Eos % (Auto) (0.7-5.8) Baso % (Auto) (0.1-1.2) % Neut # (Auto) (1.56-6.13) K/mm3 Lymph # (Auto) (1.18-3.74) K/mm3 [place] # (Auto) (0.24-0.36) K/mm3 Eos # (Auto) (0.04-0.36) K/mm3 Baso # (Auto) (0.01-0.08) K/mm3 POC Glucose 210 H 155 H (70-99) mg/dL C-Reactive Protein (<1.0) mg/dL NT-Pro-B Natriuret Pep (0-125) pg/mL Vitamin D 25-Hydroxy (30.0-100.0) ng/ml Procalcitonin ng/mL MRSA (PCR) Negative 08/09/21 08/09/21 Range/Units 06:04 06:07 WBC 6.79 (3.98-10.04) K/mm3 RBC 3.38 L (3.98-5.22) M/mm3 Hgb 10.1 L (11.2-15.7) gm/dl Hct 33.4 L (34.1-44.9) % MCV 98.8 H (79.4-94.8) fl MCH 29.9 (25.6-32.2) pg MCHC 30.2 L (32.2-35.5) g/dl RDW Std Deviation 60.8 H (36.4-46.3) fL Plt Count 315 (182-369) K/mm3 MPV 9.0 L (9.4-12.3) fl Neut % (Auto) 71.0 (34.0-71.1) % Lymph % (Auto) 21.4 (19.3-51.7) % [place] % (Auto) 7.5 (4.7-12.5) % Eos % (Auto) 0 L (0.7-5.8) Baso % (Auto) 0.0 L (0.1-1.2) % Neut # (Auto) 4.82 (1.56-6.13) K/mm3 Lymph # (Auto) 1.45 (1.18-3.74) K/mm3 [place] # (Auto) 0.51 H (0.24-0.36) K/mm3 Eos # (Auto) 0.00 L (0.04-0.36) K/mm3 Baso # (Auto) 0.00 L (0.01-0.08) K/mm3 POC Glucose 137 H (70-99) mg/dL C-Reactive Protein (<1.0) mg/dL NT-Pro-B Natriuret Pep (0-125) pg/mL Vitamin D 25-Hydroxy (30.0-100.0) ng/ml Procalcitonin ng/mL MRSA (PCR) Result Diagrams: 08/09/21 06:07 08/09/21 06:07 Sepsis Event Note - Evaluation Sepsis Screening Result: No Definite Risk - Focused Exam Vital Signs: Vital Signs Temp Pulse Resp BP Pulse Ox Pulse Ox 08/09/21 04:00 36.5 C 77 20 103/47 L 93 L 08/08/21 23:34 36.8 C 79 18 122/80 92 L 08/08/21 22:11 91 L 08/08/21 19:49 36.5 C 08/08/21 19:44 91 18 119/58 L 91 L - Problem List & Annotations (1) Acute hypoxemic respiratory failure SNOMED Code(s): 267352868 Code(s): J96.01 - ACUTE RESPIRATORY FAILURE WITH HYPOXIA Status: Acute Priority: High Current Visit: Yes (2) Pneumonia due to COVID-19 virus SNOMED Code(s): 113945433151062830 Code(s): U07.1 - COVID-19; J12.82 - PNEUMONIA DUE TO CORONAVIRUS DISEASE 2019 Status: Acute Priority: High Current Visit: Yes (3) Pulmonary emboli SNOMED Code(s): 54704178 Code(s): I26.99 - OTHER PULMONARY EMBOLISM WITHOUT ACUTE COR PULMONALE Status: Acute Priority: High Current Visit: Yes Qualifiers: Pulmonary embolism type: other Chronicity: acute Acute cor pulmonale presence: with acute cor pulmonale Qualified Code(s): I26.09 - Other pulmonary embolism with acute cor pulmonale (4) Abnormal echocardiogram SNOMED Code(s): 471117169 Code(s): R93.1 - ABNORMAL FINDINGS ON DX IMAGING OF HEART AND COR CIRC Status: Acute Priority: High Current Visit: Yes (5) Edema due to congestive heart failure SNOMED Code(s): 014343939, 907751310 Code(s): I50.9 - HEART FAILURE, UNSPECIFIED Status: Chronic Priority: High Current Visit: Yes (6) New onset type 2 diabetes mellitus SNOMED Code(s): 69871738 Code(s): E11.9 - TYPE 2 DIABETES MELLITUS WITHOUT COMPLICATIONS Status: Acute Priority: High Current Visit: Yes - Problem List Review Problem List Initiated/Reviewed/Updated: Yes - My Orders Last 24 Hours: My Active Orders 08/08/21 20:14 traZODone 50 mg PO BEDTIME PRN - Assessment Assessment:: 08/07/2021 assess: 1// hypoxia/tachipnea with new infiltrates and heart failure symptoms worsening over last 6 months 2// recent uri/bronchitis prob. covid screen ordered.. 3// cardiac enlargment ? etiology. echo and ekg and trop ordered but no hx of cad valvular or other known cause . ? covid and rt heart failure related to microemoli or p.e. 4// increased edema started before weird flu? heart failure and now pneumonia on xray . obesity . 5// cellulitis legs without def. vasculitis and or varicosities . lymphedema. 6// multiple carious teeth no hx of drug and or meth or etoh abuse or use. non smoker. plan o2/ d dimer/ rule out p.e and rt heart failure. ekg rule out silent ami. covid flu /rsv screen/// start nebs echo.// ekg telemety tonight. antibiotics // lasix and heart failure treatment started. screen for diabetes and other causes. diabetic ed and monitor b.s d.e and dietary teaching. boh 08/08/2021 46-year-old female who was a direct admit from the [place] walk[facility] with concerns over possible new onset elevated BNP. On admission further work-up involved hemoglobin A1c which was 6.7 and troponin which was 0.033. TSH was 3.512. Patient was found to be Covid positive. D-dimer was elevated at 4.38. Patient was sent for a CTA which showed "1. Extensive pulmonary emboli within both sides of the chest which also involve the distal right and left main pulmonary arteries. 2. Minimal decompensation of the right heart is seen. 3. Patchy areas of increased density within the chest most likely representing a combination of Covid pneumonia and superimposed change from pulmonary emboli. Prior to CTA patient had been started on empiric 10 mg Eliquis twice daily for 7 days. This will be continued now with confirmation of her pulmonary emboli. Echocardiogram was obtained and shows 1. Left ventricular ejection fraction, by visual estimation, is 6065%. 2. Normal pattern of LV diastolic filling. 3. Right ventricle is not well visualized in apical views. Unable to assess size or function but appears enlarged in some views. Abnormal septal bounce and some D-shaped septal flattening consistent with pulmonary hypertension. 4. Aortic valve is tricuspid and structurally normal. 5. Mild aortic valve regurgitation. 6. Trace mitral valve regurgitation. 7. Mild cuspid valve regurgitation. 8. The right ventricular systolic pressure is moderately elevated at 54.5 mmHg. 9. 1.3 x 0.2 cm indeterminate linear echodensity attached to posterior mitral leaflet on the left atrial side (frame 4). Differential includes artifact or vegetation. Apical images are too limited for different axis visualization. Consider cardiology consult plus or minus MELQUIADES, correlate clinically. 10. No regional wall motion abnormalities. 11. Technically difficult study with suboptimal image quality, especially apical images. Recommend Definity contrast with future slides. Contacted Dr. De Jesus, caster operator with [facility] in [place] who interpreted the echocardiogram to discuss findings and recommendations. He stated because of patient's Covid symptoms they would likely not perform any intervention at this time. Unfortunately blood cultures had not been obtained yesterday prior to starting patient on antibiotics and we will order these now. We will screen the patient for MRSA but also start her on vancomycin. Patient does has risk factors for endocarditis including her current lower extremity cellulitis and very poor dentition. Because of this Dr. De Jesus recommends patient follow-up with cardiology within 2 weeks after discharge. Otherwise patient continues on dexamethasone and remdesivir for her COVID-19 pneumonia. She remains on 1 L. She has had no leukocytosis and her RBC is 3.56 currently. Hemoglobin is 10.8. Platelet 261,000. Neutrophils are elevated at 84.8%. D-dimer as mentioned prior was 4.38. ABG was obtained in the right radial yesterday showing a pH of 7.48. PCO2 of 40.5. PO2 of 52.0. HCO3 of 29.5. O2 saturations were 88%. Base excess was 5.8. AA gradient was 47. This was obtained on room air. Sodium today is 139. Potassium 3.5. Chloride 99. Carbon dioxide 30. Anion gap 13.5. BUN is 25. Creatinine 1.7. GFR is 32. Glucose has been between 170 and 117. Hemoglobin A1c was 6.7. Bilirubin is 0.2. AST is 27, ALT 18, alkaline phosphatase 182. CRP today was 30.2. proBNP was 1544. Protein was 7.2. Albumin was 2.2. Vitamin D was low at 26.0 and patient was started on 5000 units daily supplementation. Overall patient reports she feels okay but she is having leg pain. Advised patient to elevate her extremities due to her edema. She does state that her edema has improved since admission. We discussed follow-up and plan for care. Patient requested that I contact her and I will do the shortly. No acute concerns. Length of stay likely 4 to 5 days pending improvement with Covid symptoms and pedal edema. We will start the patient on 20 mg daily IV push Lasix for now given her renal function and monitor. 08/09/2021 The patient is a 46-year-old lady who was admitted and subsequently found to have COVID-19 pneumonia with acute respiratory failure. Patient will be kept on oxygen to keep her saturations around 92%. The patient is on remdesivir and her last dose of 100 mg IV will be tonight. This will not be continued. The patient is also on dexamethasone as well. Out of concern for pneumonia the patient will be kept on ceftriaxone for now and her antibiotics will be deesc alated as indicated. A CT scan was ordered previously as her D-dimer had elevated markedly. The patient was found to have extensive bilateral pulmonary emboli and she is also on starter dose of apixaban 10 mg p.o. twice daily. The patient will need to be on this for indeterminate time. The patient also had a 2D echocardiogram which was technically difficult with suboptimal images but there was some concern with regards to mitral valve leaflet vegetation and specialty echocardiogram was recommended. See previous note from physicians golf player assistant. Repeat laboratory studies have been ordered. The chest x-ray is also been ordered for the morning. The patient will be maintained on her approp riate diabetic diet. She is also on insulin sliding scale. The patient should be appropriate for discharge once her oxygen demands have improved in 1 to 2 days. - Plan Plan:: Pneumonia due to COVID-19 virus Acute hypoxemic respiratory failure * Droplet/airborne precautions * Respiratory therapy consultation * O2 as needed with goal saturations 87 to 95% * I-S/Acapella * Every 48 hour D-dimer checks * Daily labs * 6 mg dexamethasone for 10 days total * Remdesivir for 5 days total * Zinc supplementation * As needed albuterol nebulizer * As needed albuterol MDI * As needed DuoNebs * Prone whenever able * 2 g Rocephin daily * 500 mg azithromycin for 3 days * Ambulate around room * Telemetry * Continuous pulse oximetry Pulmonary emboli * Eliquis 10 mg twice daily for 7 days then transition to 5 mg twice daily * Continuous pulse oximetry * Cardiology follow-up within 2 weeks after discharge (Per Dr. De Jesus, Cardiology) Suspected CHF (congestive heart failure) Pedal edema * 2 g sodium restriction * Echo obtained as noted -poor echo windows * Right ventricle findings skewed by poor windows pulmonary emboli causing right heart strain * Follow-up in 2 weeks after discharge with cardiology per Dr. De Jesus, cardiology. * Elevate lower extremities whenever possible * IPV lasix as ordered New onset type 2 diabetes mellitus * Consistent carbohydrate diet * Dietitian consultation * diabetic educator consultation * 4 times daily before meals and bedtime blood glucose checks * Medium intensity sliding scale insulin * Monitor need for long-acting insulin * Anticipate rise in blood glucose levels due to steroid use as above Vitamin D deficiency * Daily 5000 units supplementation * PCP follow-up Cellulitis * Obtain wound culture if begin to drain * 2 g Rocephin daily * Vancomycin with pharmacy to dose Abnormal Echocardiogram * See echocardiogram report for full details * Very poor windows * Findings consistent with bilateral PEs as above * Indeterminate linear echodensity attached to posterior mitral leaflet on the left atrial side * Discussed case with Dr. De Jesus, caster operator with [facility] in [place] * Recommends blood cultures * They avoid performing MELQUIADES's in Covid positive patients * Recommends follow-up with cardiology 2 weeks after discharge * Recommends MRSA screen * Recommends patient continue antibiotics Renal failure * Suspect baseline CKD however patient rarely sees medical provider * Avoid nephrotoxic agents if possible * Monitor Obesity (BMI 30-39.9) * Dietitian consult Poor dentition * Blood cultures pending * Monitor labs * Increases risk for bacteremia/endocarditis * Outpatient dental follow-up CODE STATUS: Full code PCP: None - needs to establish DVT prophylaxis: Eliquis Disposition: Patient will remain hospitalized for IV antibiotic treatment of cellulitis, questionable pneumonia, and treatment of COVID-19 pneumonia. Likely length of stay 4 to 5 days. Will require cardiology follow-up within 2 weeks after discharge as noted above.
[2021-08-09] MEDS: Insulin Lispro 100 Unit/ML 3 ML KwikPen SUBCUT SCH ×4 (07:32→22:09)
[2021-08-09] MEDS ORDERED: Vancomycin 1 GM, Vancomycin 250 MG in Sodium Chloride 0.9% 250 ML IV SCH (08:00)
[2021-08-09] MEDS: Vancomycin 1 GM, Vancomycin 250 MG in Sodium Chloride 0.9% 250 ML IV SCH (09:58)
[2021-08-09] MEDS: Azithromycin 500 MG in Sodium Chloride 0.9% 250 ML IV SCH (10:00)
[2021-08-09] MEDS: Apixaban 5 MG Tab PO SCH ×2 (10:01→20:51)
[2021-08-09] MEDS: Cholecalciferol (Vitamin D3) 5,000 UNIT Cap PO SCH (10:01)
[2021-08-09] MEDS: Zinc Sulfate 220 MG Cap PO SCH (10:01)
[2021-08-09] MEDS: Dexamethasone 6 MG TABLET PO SCH (10:13)
[2021-08-09] MEDS: Losartan 25 MG Tab PO SCH (10:13)
[2021-08-09] MEDS: Sodium Chloride 0.9% 10 ML Syringe FLUSH SCH ×2 (10:15→20:51)
[2021-08-09] MEDS: Furosemide 20 MG/2 ML VIAL IVPUSH SCH (10:15)
[2021-08-09] MEDS ORDERED: Magnesium Sulfate/Water 2 GM in Premix Bag 1 BAG IV ONE (12:51)
[2021-08-09] MEDS: cefTRIAXone 2 GM in Sodium Chloride 0.9% 100 ML IV SCH (20:47)
[2021-08-09] MEDS: REMDESIVIR 100 MG in Sodium Chloride 0.9% 250 ML IV SCH (21:00)
[2021-08-10] MEDS: Vancomycin 1 GM, Vancomycin 250 MG in Sodium Chloride 0.9% 250 ML IV SCH ×3 (02:08→17:12)
[2021-08-10] MEDS: Insulin Lispro 100 Unit/ML 3 ML KwikPen SUBCUT SCH ×4 (06:59→22:00)
[2021-08-10] MEDS: Azithromycin 500 MG in Sodium Chloride 0.9% 250 ML IV SCH (09:01)
[2021-08-10] MEDS: Furosemide 20 MG/2 ML VIAL IVPUSH SCH (09:02)
[2021-08-10] MEDS: Zinc Sulfate 220 MG Cap PO SCH (09:02)
[2021-08-10] MEDS: Apixaban 5 MG Tab PO SCH ×2 (09:02→21:59)
[2021-08-10] MEDS: Cholecalciferol (Vitamin D3) 5,000 UNIT Cap PO SCH (09:02)
[2021-08-10] MEDS: Dexamethasone 6 MG TABLET PO SCH (09:02)
[2021-08-10] MEDS: Losartan 25 MG Tab PO SCH (09:02)
[2021-08-10] MEDS: Sodium Chloride 0.9% 10 ML Syringe FLUSH SCH ×2 (09:03→22:00)
[2021-08-10] MEDS ORDERED: Ondansetron 4 MG/2 ML SDV ONE (10:14)
[2021-08-10] MEDS ORDERED: Ondansetron 4 MG/2 ML SDV IVPUSH PRN (12:24)
[2021-08-10] MEDS ORDERED: Potassium Chloride 20 MEQ Tab.ER PO ONE (15:14)
--- NOTE | 2021-08-10 16:23 | PCM.PN ---
- General Info Date of Service: 08/10/21 Admission Dx/Problem (Free Text): Admission Diagnosis/Problem Admission Diagnosis/Problem Congestive heart failure/hypoxia Subjective Update: The patient is a 46-year-old lady who was admitted to acute hospitalization on August 07, 2021 as a direct admit from [facility]. The patient also has been diagnosed with extensive bilateral pulmonary emboli. She states she is feeling much better over the last 24 hours. Less shortness of breath. She is down to 1 L nasal cannula. Functional Status: Reports: Pain Controlled - Review of Systems General: Reports: No Symptoms HEENT: Reports: No Symptoms Pulmonary: Reports: No Symptoms Cardiovascular: Reports: No Symptoms Gastrointestinal: Reports: No Symptoms - Patient Data Vitals - Most Recent: Last Vital Signs Temp 97.0 F 08/10/21 14:33 Pulse 67 08/10/21 14:33 Resp 18 08/10/21 14:33 BP 103/66 08/10/21 14:33 Pulse Ox 90 L 08/10/21 14:33 Weight - Most Recent: 227 lb 1.6 oz I&O - Last 24 Hours: Intake & Output 08/10/21 08/10/21 08/10/21 06:59 14:59 22:59 Intake Total 1400 175 920 Output Total 1000 900 Balance 400 175 20 Lab Results Last 24 Hours: Laboratory Results - last 24 hr 08/09/21 08/09/21 08/10/21 Range/Units 16:33 21:11 06:45 WBC (3.98-10.04) K/mm3 RBC (3.98-5.22) M/mm3 Hgb (11.2-15.7) gm/dl Hct (34.1-44.9) % MCV (79.4-94.8) fl MCH (25.6-32.2) pg MCHC (32.2-35.5) g/dl RDW Std Deviation (36.4-46.3) fL Plt Count (182-369) K/mm3 MPV (9.4-12.3) fl Neut % (Auto) (34.0-71.1) % Lymph % (Auto) (19.3-51.7) % [place] % (Auto) (4.7-12.5) % Eos % (Auto) (0.7-5.8) Baso % (Auto) (0.1-1.2) % Neut # (Auto) (1.56-6.13) K/mm3 Lymph # (Auto) (1.18-3.74) K/mm3 [place] # (Auto) (0.24-0.36) K/mm3 Eos # (Auto) (0.04-0.36) K/mm3 Baso # (Auto) (0.01-0.08) K/mm3 Sodium (136-145) mEq/L Potassium (3.5-5.1) mEq/L Chloride (98-107) mEq/L Carbon Dioxide (21-32) mEq/L Anion Gap (5-15) BUN (7-18) mg/dL Creatinine (0.55-1.02) mg/dL Est Cr Clr Drug Dosing mL/min Estimated GFR (MDRD) (>60) mL/min BUN/Creatinine Ratio (14-18) Glucose (70-99) mg/dL POC Glucose 153 H 173 H 124 H (70-99) mg/dL Calcium (8.5-10.1) mg/dL Total Bilirubin (0.2-1.0) mg/dL AST (15-37) U/L ALT (14-59) U/L Alkaline Phosphatase (46-116) U/L C-Reactive Protein (<1.0) mg/dL Total Protein (6.4-8.2) g/dl Albumin (3.4-5.0) g/dl Globulin gm/dL Albumin/Globulin Ratio (1-2) 08/10/21 08/10/21 08/10/21 Range/Units 07:31 07:31 11:08 WBC 5.28 (3.98-10.04) K/mm3 RBC 3.28 L (3.98-5.22) M/mm3 Hgb 10.0 L (11.2-15.7) gm/dl Hct 32.7 L (34.1-44.9) % MCV 99.7 H (79.4-94.8) fl MCH 30.5 (25.6-32.2) pg MCHC 30.6 L (32.2-35.5) g/dl RDW Std Deviation 60.8 H (36.4-46.3) fL Plt Count 292 (182-369) K/mm3 MPV 9.0 L (9.4-12.3) fl Neut % (Auto) 54.3 (34.0-71.1) % Lymph % (Auto) 34.7 (19.3-51.7) % [place] % (Auto) 10.6 (4.7-12.5) % Eos % (Auto) 0.2 L (0.7-5.8) Baso % (Auto) 0.2 (0.1-1.2) % Neut # (Auto) 2.87 (1.56-6.13) K/mm3 Lymph # (Auto) 1.83 (1.18-3.74) K/mm3 [place] # (Auto) 0.56 H (0.24-0.36) K/mm3 Eos # (Auto) 0.01 L (0.04-0.36) K/mm3 Baso # (Auto) 0.01 (0.01-0.08) K/mm3 Sodium 140 (136-145) mEq/L Potassium 3.4 L (3.5-5.1) mEq/L Chloride 101 (98-107) mEq/L Carbon Dioxide 32 (21-32) mEq/L Anion Gap 10.4 (5-15) BUN 10 (7-18) mg/dL Creatinine 0.7 (0.55-1.02) mg/dL Est Cr Clr Drug Dosing 90.36 mL/min Estimated GFR (MDRD) > 60 (>60) mL/min BUN/Creatinine Ratio 14.3 (14-18) Glucose 121 H (70-99) mg/dL POC Glucose 137 H (70-99) mg/dL Calcium 7.8 L (8.5-10.1) mg/dL Total Bilirubin 0.2 (0.2-1.0) mg/dL AST 17 (15-37) U/L ALT 21 (14-59) U/L Alkaline Phosphatase 47 (46-116) U/L C-Reactive Protein 2.4 H* (<1.0) mg/dL Total Protein 6.1 L (6.4-8.2) g/dl Albumin 2.2 L (3.4-5.0) g/dl Globulin 3.9 gm/dL Albumin/Globulin Ratio 0.6 L (1-2) Ang Results Last 24 Hours: Microbiology 12/30/21 13:50 Blood Culture - Preliminary Blood - Venous - Lab Draw 08/08/21 13:45 Blood Culture - Preliminary Blood - Venous Med Orders - Current: Current Medications Albuterol (Albuterol 0.083% 2.5 Mg/3 Ml Neb Soln) 2.5 mg NEB Q6HRRT PRN PRN Reason: Wheezing Albuterol (Albuterol 6.7 Gm Inhaler) 0 gm INH Q2H PRN PRN Reason: SOB/Wheezing Albuterol/Ipratropium (Albuterol/Ipratropium 3.0-0.5 Mg/3 Ml Neb Soln) 3 ml NEB QIDRT PRN PRN Reason: SOB/Wheezing Apixaban (Apixaban 5 Mg Tab) 10 mg PO BID [facility] Stop: 08/14/21 21:01 Last Admin: 08/10/21 09:02 Dose: 10 mg Documented by: Cholecalciferol (Cholecalciferol (Vitamin D3) 5,000 Unit Cap) 5,000 unit PO DAILY [facility] Last Admin: 08/10/21 09:02 Dose: 5,000 unit Documented by: Dexamethasone (Dexamethasone 6 Mg Tablet) 6 mg PO DAILY [facility] Stop: 08/16/21 09:01 Last Admin: 08/10/21 09:02 Dose: 6 mg Documented by: Furosemide (Furosemide 20 Mg/2 Ml Vial) 20 mg IVPUSH DAILY [facility] Last Admin: 08/10/21 09:02 Dose: 20 mg Documented by: Ceftriaxone Sodium 2 gm/ (Sodium Chloride) 100 mls @ 200 mls/hr IV Q24H [facility] Stop: 08/11/21 20:29 Last Admin: 08/09/21 20:47 Dose: 200 mls/hr Documented by: Remdesivir 100 mg/ Sodium (Chloride) 250 mls @ 250 mls/hr IV Q24H [facility] Stop: 08/11/21 22:01 Last Admin: 08/09/21 21:00 Dose: 250 mls/hr Documented by: Vancomycin HCl 1 gm/Vancomycin HCl 250 mg/ Sodium Chloride 250 mls @ 166 mls/hr IV Q8H [facility] Last Admin: 08/10/21 10:20 Dose: 166 mls/hr Documented by: Insulin Human Lispro (Insulin Lispro 100 Unit/Ml 3 Ml Kwikpen) 0 unit SUBCUT WITHMEALSANDBED [facility]; Protocol Last Admin: 08/10/21 12:26 Dose: Not Given Documented by: Losartan Potassium (Losartan 25 Mg Tab) 25 mg PO DAILY [facility] Last Admin: 08/10/21 09:02 Dose: 25 mg Documented by: Ondansetron HCl (Ondansetron 4 Mg/2 Ml Sdv) 4 mg IVPUSH Q8HR PRN PRN Reason: Nausea/Vomiting Last Admin: 08/10/21 10:30 Dose: 4 mg Documented by: Sodium Chloride (Sodium Chloride 0.9% 10 Ml Syringe) 10 ml FLUSH 0900,2100 [facility] Last Admin: 08/10/21 09:03 Dose: 10 ml Documented by: Trazodone HCl (Trazodone 50 Mg Tab) 50 mg PO BEDTIME PRN PRN Reason: Insomnia Last Admin: 08/08/21 20:32 Dose: 50 mg Documented by: Vancomycin HCl (Pharmacy To Dose - Vancomycin) 1 dose .XX ASDIRECTED PRN PRN Reason: RX TO DOSE VANCO Zinc Sulfate (Zinc Sulfate 220 Mg Cap) 220 mg PO DAILY [facility] Last Admin: 08/10/21 09:02 Dose: 220 mg Documented by: Discontinued Medications Dexamethasone (Dexamethasone 6 Mg Tablet) 6 mg PO DAILY [facility] Last Admin: 08/08/21 01:44 Dose: Not Given Documented by: Dexamethasone (Dexamethasone 6 Mg Tablet) 6 mg PO DAILY [facility] Enoxaparin Sodium (Enoxaparin 40 Mg/0.4 Ml Syringe) 40 mg SUBCUT BEDTIME [facility] Last Admin: 08/07/21 20:00 Dose: 40 mg Documented by: Furosemide (Furosemide 20 Mg/2 Ml Vial) 20 mg IVPUSH NOW ONE Stop: 08/07/21 17:31 Last Admin: 08/07/21 18:53 Dose: 20 mg Documented by: Hyaluronidase (Hyaluronidase, Human Recombinant 150 Units/1 Ml Sdv) 150 units SUBCUT ONETIME ONE Stop: 08/09/21 00:08 Last Admin: 08/09/21 00:26 Dose: 150 units Documented by: Ceftriaxone Sodium 2 gm/ (Sodium Chloride) 100 mls @ 200 mls/hr IV Q24H [facility] Last Admin: 08/07/21 19:57 Dose: Not Given Documented by: Remdesivir 200 mg/ Sodium (Chloride) 250 mls @ 250 mls/hr IV ONETIME ONE Stop: 08/07/21 22:01 Last Admin: 08/08/21 01:21 Dose: Not Given Documented by: Remdesivir 200 mg/ Sodium (Chloride) 250 mls @ 250 mls/hr IV ONETIME ONE Stop: 08/08/21 01:59 Last Admin: 08/08/21 01:21 Dose: 250 mls/hr Documented by: Azithromycin 500 mg/ Sodium (Chloride) 250 mls @ 250 mls/hr IV Q24H [facility] Stop: 08/10/21 10:59 Last Admin: 08/10/21 09:01 Dose: 250 mls/hr Documented by: Sodium Chloride (Normal Saline) 100 mls @ 60 mls/hr IV ASDIRECTED [facility] Stop: 08/08/21 12:00 Last Admin: 08/08/21 10:25 Dose: 60 mls/hr Documented by: Vancomycin HCl 1 gm/Vancomycin HCl 500 mg/ Sodium Chloride 500 mls @ 250 mls/hr IV ONETIME ONE Stop: 08/08/21 16:29 Last Admin: 08/08/21 15:01 Dose: 250 mls/hr Documented by: Vancomycin HCl 1 gm/Vancomycin HCl 250 mg/ Sodium Chloride 250 mls @ 166.667 mls/hr IV Q18H [facility] Vancomycin HCl 1 gm/Vancomycin HCl 250 mg/ Sodium Chloride 250 mls @ 166.667 mls/hr IV Q18H [facility] Last Admin: 08/10/21 02:08 Dose: 166.667 mls/hr Documented by: Sodium Chloride (Normal Saline) Confirm Administered Dose 250 mls @ as directed .ROUTE .STK-MED ONE Stop: 08/09/21 01:18 Last Admin: 08/09/21 02:24 Dose: Not Given Documented by: Magnesium Sulfate 2 gm/ Premix 50 mls @ 25 mls/hr IV ONETIME ONE Stop: 08/09/21 14:50 Last Admin: 08/09/21 13:17 Dose: 25 mls/hr Documented by: Iopamidol (Iopamidol 755 Mg/Ml 100 Ml Bottle) 100 ml IVPUSH ONETIME ONE Stop: 08/08/21 09:45 Last Admin: 08/08/21 10:24 Dose: 100 ml Documented by: Ondansetron HCl (Ondansetron 4 Mg/2 Ml Sdv) Confirm Administered Dose 4 mg .ROUTE .STK-MED ONE Stop: 08/10/21 10:15 Last Admin: 08/10/21 15:54 Dose: Not Given Documented by: Potassium Chloride (Potassium Chloride 20 Meq Tab.Er) 20 meq PO BID [facility] Stop: 08/08/21 22:00 Last Admin: 08/08/21 20:31 Dose: 20 meq Documented by: Potassium Chloride (Potassium Chloride 20 Meq Tab.Er) 20 meq PO ONETIME ONE Stop: 08/10/21 15:15 Last Admin: 08/10/21 15:54 Dose: 20 meq Documented by: Sodium Chloride (Sodium Chloride 0.9% 10 Ml Syringe) 10 ml FLUSH ONETIME ONE Stop: 08/08/21 09:45 Last Admin: 08/08/21 11:47 Dose: 10 ml Documented by: - Exam Quality Assessment: Supplemental Oxygen General: Alert, Oriented HEENT: Pupils Equal, Mucous Membr. Moist/[employer] Neck: Supple Lungs: Normal Respiratory Effort, Crackles (Bibasilar) Cardiovascular: Regular Rate, Regular Rhythm GI/Abdominal Exam: Normal Bowel Sounds, Soft, Non-Tender, No Distention Extremities: Normal Inspection, Normal Range of Motion, Non-Tender, No Pedal Edema, Normal Capillary Refill Skin: Warm, Dry, Intact Psy/Mental Status: Alert, Normal Affect, Normal Mood - Patient Data Lab Results Last 24 hrs: Laboratory Results - last 24 hr 08/09/21 08/09/21 08/10/21 Range/Units 16:33 21:11 06:45 WBC (3.98-10.04) K/mm3 RBC (3.98-5.22) M/mm3 Hgb (11.2-15.7) gm/dl Hct (34.1-44.9) % MCV (79.4-94.8) fl MCH (25.6-32.2) pg MCHC (32.2-35.5) g/dl RDW Std Deviation (36.4-46.3) fL Plt Count (182-369) K/mm3 MPV (9.4-12.3) fl Neut % (Auto) (34.0-71.1) % Lymph % (Auto) (19.3-51.7) % [place] % (Auto) (4.7-12.5) % Eos % (Auto) (0.7-5.8) Baso % (Auto) (0.1-1.2) % Neut # (Auto) (1.56-6.13) K/mm3 Lymph # (Auto) (1.18-3.74) K/mm3 [place] # (Auto) (0.24-0.36) K/mm3 Eos # (Auto) (0.04-0.36) K/mm3 Baso # (Auto) (0.01-0.08) K/mm3 Sodium (136-145) mEq/L Potassium (3.5-5.1) mEq/L Chloride (98-107) mEq/L Carbon Dioxide (21-32) mEq/L Anion Gap (5-15) BUN (7-18) mg/dL Creatinine (0.55-1.02) mg/dL Est Cr Clr Drug Dosing mL/min Estimated GFR (MDRD) (>60) mL/min BUN/Creatinine Ratio (14-18) Glucose (70-99) mg/dL POC Glucose 153 H 173 H 124 H (70-99) mg/dL Calcium (8.5-10.1) mg/dL Total Bilirubin (0.2-1.0) mg/dL AST (15-37) U/L ALT (14-59) U/L Alkaline Phosphatase (46-116) U/L C-Reactive Protein (<1.0) mg/dL Total Protein (6.4-8.2) g/dl Albumin (3.4-5.0) g/dl Globulin gm/dL Albumin/Globulin Ratio (1-2) 08/10/21 08/10/21 08/10/21 Range/Units 07:31 07:31 11:08 WBC 5.28 (3.98-10.04) K/mm3 RBC 3.28 L (3.98-5.22) M/mm3 Hgb 10.0 L (11.2-15.7) gm/dl Hct 32.7 L (34.1-44.9) % MCV 99.7 H (79.4-94.8) fl MCH 30.5 (25.6-32.2) pg MCHC 30.6 L (32.2-35.5) g/dl RDW Std Deviation 60.8 H (36.4-46.3) fL Plt Count 292 (182-369) K/mm3 MPV 9.0 L (9.4-12.3) fl Neut % (Auto) 54.3 (34.0-71.1) % Lymph % (Auto) 34.7 (19.3-51.7) % [place] % (Auto) 10.6 (4.7-12.5) % Eos % (Auto) 0.2 L (0.7-5.8) Baso % (Auto) 0.2 (0.1-1.2) % Neut # (Auto) 2.87 (1.56-6.13) K/mm3 Lymph # (Auto) 1.83 (1.18-3.74) K/mm3 [place] # (Auto) 0.56 H (0.24-0.36) K/mm3 Eos # (Auto) 0.01 L (0.04-0.36) K/mm3 Baso # (Auto) 0.01 (0.01-0.08) K/mm3 Sodium 140 (136-145) mEq/L Potassium 3.4 L (3.5-5.1) mEq/L Chloride 101 (98-107) mEq/L Carbon Dioxide 32 (21-32) mEq/L Anion Gap 10.4 (5-15) BUN 10 (7-18) mg/dL Creatinine 0.7 (0.55-1.02) mg/dL Est Cr Clr Drug Dosing 90.36 mL/min Estimated GFR (MDRD) > 60 (>60) mL/min BUN/Creatinine Ratio 14.3 (14-18) Glucose 121 H (70-99) mg/dL POC Glucose 137 H (70-99) mg/dL Calcium 7.8 L (8.5-10.1) mg/dL Total Bilirubin 0.2 (0.2-1.0) mg/dL AST 17 (15-37) U/L ALT 21 (14-59) U/L Alkaline Phosphatase 47 (46-116) U/L C-Reactive Protein 2.4 H* (<1.0) mg/dL Total Protein 6.1 L (6.4-8.2) g/dl Albumin 2.2 L (3.4-5.0) g/dl Globulin 3.9 gm/dL Albumin/Globulin Ratio 0.6 L (1-2) Result Diagrams: 08/10/21 07:31 08/10/21 07:31 Ang Results Last 24 hrs: Microbiology 08/08/21 13:50 Blood Culture - Preliminary Blood - Venous - Lab Draw 08/08/21 13:45 Blood Culture - Preliminary Blood - Venous Sepsis Event Note - Evaluation Sepsis Screening Result: No Definite Risk - Focused Exam Vital Signs: Vital Signs Temp Pulse Resp BP Pulse Ox 08/10/21 14:33 97.0 F 67 18 103/66 90 L 08/10/21 11:10 98.1 F 73 18 141/97 H 90 L 08/10/21 09:02 105/45 L 08/10/21 08:07 97.5 F 66 18 105/45 L 91 L - Problem List & Annotations (1) Acute hypoxemic respiratory failure SNOMED Code(s): 572793791 Code(s): J96.01 - ACUTE RESPIRATORY FAILURE WITH HYPOXIA Status: Acute Priority: High Current Visit: Yes (2) New onset type 2 diabetes mellitus SNOMED Code(s): 31813145 Code(s): E11.9 - TYPE 2 DIABETES MELLITUS WITHOUT COMPLICATIONS Status: Acute Priority: High Current Visit: Yes (3) Pneumonia due to COVID-19 virus SNOMED Code(s): 511852951438428804 Code(s): U07.1 - COVID-19; J12.82 - PNEUMONIA DUE TO CORONAVIRUS DISEASE 2019 Status: Acute Priority: High Current Visit: Yes (4) Pulmonary emboli SNOMED Code(s): 95558742 Code(s): I26.99 - OTHER PULMONARY EMBOLISM WITHOUT ACUTE COR PULMONALE Status: Acute Priority: High Current Visit: Yes Qualifiers: Pulmonary embolism type: other Chronicity: acute Acute cor pulmonale presence: with acute cor pulmonale Qualified Code(s): I26.09 - Other pulmonary embolism with acute cor pulmonale - Problem List Review Problem List Initiated/Reviewed/Updated: Yes - My Orders Last 24 Hours: My Active Orders 08/10/21 12:24 Ondansetron [Zofran] 4 mg IVPUSH Q8HR PRN - Assessment Assessment:: 08/07/2021 assess: 1// hypoxia/tachipnea with new infiltrates and heart failure symptoms worsening over last 6 months 2// recent uri/bronchitis prob. covid screen ordered.. 3// cardiac enlargment ? etiology. echo and ekg and trop ordered but no hx of cad valvular or other known cause . ? covid and rt heart failure related to microemoli or p.e. 4// increased edema started before weird flu? heart failure and now pneumonia on xray . obesity . 5// cellulitis legs without def. vasculitis and or varicosities . lymphedema. 6// multiple carious teeth no hx of drug and or meth or etoh abuse or use. non smoker. plan o2/ d dimer/ rule out p.e and rt heart failure. ekg rule out silent ami. covid flu /rsv screen/// start nebs echo.// ekg telemety tonight. antibiotics // lasix and heart failure treatment started. screen for diabetes and other causes. diabetic ed and monitor b.s d.e and dietary teaching. boh 08/08/2021 46-year-old female who was a direct admit from the [place] walk-in clinic with concerns over possible new onset elevated BNP. On admission further work-up involved hemoglobin A1c which was 6.7 and troponin which was 0.033. TSH was 3.512. Patient was found to be Covid positive. D-dimer was elevated at 4.38. Patient was sent for a CTA which showed "1. Extensive pulmonary emboli within both sides of the chest which also involve the distal right and left main pulmonary arteries. 2. Minimal decompensation of the right heart is seen. 3. Patchy areas of increased density within the chest most likely representing a combination of Covid pneumonia and superimposed change from pulmonary emboli. Prior to CTA patient had been started on empiric 10 mg Eliquis twice daily for 7 days. This will be continued now with confirmation of her pulmonary emboli. Echocardiogram was obtained and shows 1. Left ventricular ejection fraction, by visual estimation, is 60-65%. 2. Normal pattern of LV diastolic filling. 3. Right ventricle is not well visualized in apical views. Unable to assess size or function but appears enlarged in some views. Abnormal septal bounce and some D-shaped septal flattening consistent with pulmonary hypertension. 4. Aortic valve is tricuspid and structurally normal. 5. Mild aortic valve regurgitation. 6. Trace mitral valve regurgitation. 7. Mild cuspid valve regurgitation. 8. The right ventricular systolic pressure is moderately elevated at 54.5 mmHg. 9. 1.3 x 0.2 cm indeterminate linear echodensity attached to posterior mitral leaflet on the left atrial side (frame 4). Differential includes artifact or vegetation. Apical images are too limited for different axis visualization. Consider cardiology consult plus or minus MELQUIADES, correlate clinically. 10. No regional wall motion abnormalities. 11. Technically difficult study with suboptimal image quality, especially apical images. Recommend Definity contrast with future slides. Contacted Dr. De Jesus, propulsion motor and generator repairer with [facility] in [place] who interpreted the echocardiogram to discuss findings and r ecommendations. He stated because of patient's Covid symptoms they would likely not perform any intervention at this time. Unfortunately blood cultures had not been obtained yesterday prior to starting patient on antibiotics and we will order these now. We will screen the patient for MRSA but also start her on vancomycin. Patient does has risk factors for endocarditis including her current lower extremity cellulitis and very poor dentition. Because of this Dr. De Jesus recommends patient follow-up with cardiology within 2 weeks after discharge. Otherwise patient continues on dexamethasone and remdesivir for her COVID-19 pneumonia. She remains on 1 L. She has had no leukocytosis and her R BC is 3.56 currently. Hemoglobin is 10.8. Platelet 261,000. Neutrophils are elevated at 84.8%. D-dimer as mentioned prior was 4.38. ABG was obtained in the right radial yesterday showing a pH of 7.48. PCO2 of 40.5. PO2 of 52.0. HCO3 of 29.5. O2 saturations were 88%. Base excess was 5.8. AA gradient was 47. This was obtained on room air. Sodium today is 139. Potassium 3.5. Chloride 99. Carbon dioxide 30. Anion gap 13.5. BUN is 25. Creatinine 1.7. GFR is 32. Glucose has been between 170 and 117. Hemoglobin A1c was 6.7. Bilirubin is 0.2. AST is 27, ALT 18, alkaline phosphatase 182. CRP today was 30.2. proBNP was 1544. Protein was 7.2. Albumin was 2.2. Vitamin D was low at 26.0 and patient was started on 5000 units daily supplementation. Overall patient reports she feels okay but she is having leg pain. Advised patient to elevate her extremities due to her edema. She does state that her edema has improved since admission. We discussed follow-up and plan for care. Patient requested that I contact her and I will do the shortly. No acute concerns. Length of stay likely 4 to 5 days pending improvement with Covid symptoms and pedal edema. We will start the patient on 20 mg daily IV push Lasix for now given her renal function and monitor. 08/09/2021 The patient is a 46-year-old lady who was admitted and subsequently found to have COVID-19 pneumonia with acute respiratory failure. Patient will be kept on oxygen to keep her saturations around 92%. The patient is on remdesivir and her last dose of 100 mg IV will be tonight. This will not be continued. The patient is also on dexamethasone as well. Out of concern for pneumonia the patient will be kept on ceftriaxone for now and her antibiotics will be deescal ated as indicated. A CT scan was ordered previously as her D-dimer had elevated markedly. The patient was found to have extensive bilateral pulmonary emboli and she is also on starter dose of apixaban 10 mg p.o. twice daily. The patient will need to be on this for indeterminate time. The patient also had a 2D echocardiogram which was technically difficult with suboptimal images but there was some concern with regards to mitral valve leaflet vegetation and specialty echocardiogram was recommended. See previous note from physicians certified pathology assistant. Repeat laboratory studies have been ordered. The chest x-ray is also been ordered for the morning. The patient will be maintained on her appropriate diabetic diet. She is also on insulin sliding scale. The patient should be appropriate for discharge once her oxygen demands have improved in 1 to 2 days. 08/10/2020 46-year-old female admitted with COVID-19 pneumonia, bilateral pulmonary emboli with right heart strain, cellulitis, and acute respiratory failure. Procalcitonin is 0.23 and white count is stable at 6. She is currently on ceftriaxone and vancomycin. She has had improvement in her oxygenation is down to 1 L. She is on day 4 of 5 of remdesivir. She continues on dexamethasone 6 mg daily. She is on the loading dose of Eliquis at 10 mg twice daily. She will be following up with cardiology within 2 weeks. Patient continues to improve and will likely be discharged on Thursday or Thursday. - Plan Plan:: Pneumonia due to COVID-19 virus Acute hypoxemic respiratory failure * Droplet/airborne precautions * Respiratory therapy consultation * O2 as needed with goal saturations 87 to 95% * I-S/Acapella * Every 48 hour D-dimer checks * Daily labs * 6 mg dexamethasone for 10 days total * Remdesivir for 5 days total * Zinc supplementation * As needed albuterol nebulizer * As needed albuterol MDI * As needed DuoNebs * Prone whenever able * 2 g Rocephin daily * 500 mg azithromycin for 3 days * Ambulate around room * Telemetry * Continuous pulse oximetry Pulmonary emboli * Eliquis 10 mg twice daily for 7 days then transition to 5 mg twice daily * Continuous pulse oximetry * Cardiology follow-up within 2 weeks after discharge (Per Dr. De Jesus, Cardiology) Suspected CHF (congestive heart failure) Pedal edema * 2 g sodium restriction * Echo obtained as noted -poor echo windows * Right ventricle findings skewed by poor windows pulmonary emboli causing right heart strain * 1.3 x 0.2 cm indeterminate linear echodensity attached to posterior mitral leaflet on the left atrial side (frame 4). Differential includes artifact or vegetation. * Follow-up in 2 weeks after discharge with cardiology per Dr. De Jesus, cardiology. * Elevate lower extremities whenever possible * IPV lasix as ordered New onset type 2 diabetes mellitus * Consistent carbohydrate diet * Dietitian consultation * certified adaptive physical educator consultation * 4 times daily before meals and bedtime blood glucose checks * Medium intensity sliding scale insulin * Monitor need for long-acting insulin * Anticipate rise in blood glucose levels due to steroid use as above Vitamin D deficiency * Daily 5000 units supplementation * PCP follow-up Cellulitis * Obtain wound culture if begin to drain * 2 g Rocephin daily * Vancomycin with pharmacy to dose Abnormal Echocardiogram * See echocardiogram report for full details * Very poor windows * Findings consistent with bilateral PEs as above * Indeterminate linear echodensity attached to posterior mitral leaflet on the left atrial side * Discussed case with Dr. De Jesus, propulsion motor and generator repairer with [facility] in [place] * Recommends blood cultures * They avoid performing MELQUIADES's in Covid positive patients * Recommends follow-up with cardiology 2 weeks after discharge * Recommends MRSA screen * Recommends patient continue antibiotics Renal failure * Suspect baseline CKD however patient rarely sees medical provider * Avoid nephrotoxic agents if possible * Monitor Obesity (BMI 30-39.9) * Dietitian consult Poor dentition * Blood cultures pending * Monitor labs * Increases risk for bacteremia/endocarditis * Outpatient dental follow-up CODE STATUS: Full code PCP: None - needs to establish DVT prophylaxis: Eliquis Disposition: Patient will remain hospitalized for IV antibiotic treatment of cellulitis, questionable pneumonia, and treatment of COVID-19 pneumonia. Likely length of stay 4 to 5 days. Will require cardiology follow-up within 2 weeks after discharge as noted above.
[2021-08-10] MEDS: cefTRIAXone 2 GM in Sodium Chloride 0.9% 100 ML IV SCH (21:59)
[2021-08-10] MEDS: REMDESIVIR 100 MG in Sodium Chloride 0.9% 250 ML IV SCH (22:01)
[2021-08-11] MEDS: Vancomycin 1 GM, Vancomycin 250 MG in Sodium Chloride 0.9% 250 ML IV SCH ×3 (02:54→21:18)
[2021-08-11] MEDS: Insulin Lispro 100 Unit/ML 3 ML KwikPen SUBCUT SCH ×4 (06:54→21:21)
[2021-08-11] MEDS: Losartan 25 MG Tab PO SCH (08:37)
[2021-08-11] MEDS: Dexamethasone 6 MG TABLET PO SCH (08:38)
[2021-08-11] MEDS: Apixaban 5 MG Tab PO SCH ×2 (08:38→21:21)
[2021-08-11] MEDS: Zinc Sulfate 220 MG Cap PO SCH (08:38)
[2021-08-11] MEDS: Cholecalciferol (Vitamin D3) 5,000 UNIT Cap PO SCH (08:39)
[2021-08-11] MEDS: Furosemide 20 MG/2 ML VIAL IVPUSH SCH (08:39)
[2021-08-11] MEDS: Sodium Chloride 0.9% 10 ML Syringe FLUSH SCH ×2 (08:40→21:00)
--- NOTE | 2021-08-11 11:45 | PCM.PN ---
- General Info Date of Service: 08/11/21 Admission Dx/Problem (Free Text): Admission Diagnosis/Problem Admission Diagnosis/Problem Congestive heart failure/hypoxia Subjective Update: The patient is a 46-year-old lady who was admitted to acute hospitalization on August 07, 2021 as a direct admit from [facility]. The patient also has been diagnosed with extensive bilateral pulmonary emboli. She is down to 1 L nasal cannula. Patient was tried on room air and her oxygen saturations dropped to 65%. She is in the 90s on 1 L. Functional Status: Reports: Pain Controlled - Review of Systems General: Reports: No Symptoms HEENT: Reports: No Symptoms Pulmonary: Reports: No Symptoms Cardiovascular: Reports: No Symptoms Gastrointestinal: Reports: No Symptoms Musculoskeletal: Reports: No Symptoms - Patient Data Vitals - Most Recent: Last Vital Signs Temp 97.7 F 08/11/21 11:13 Pulse 76 08/11/21 11:13 Resp 20 08/11/21 11:13 BP 126/52 L 08/11/21 11:13 Pulse Ox 90 L 08/11/21 11:13 Weight - Most Recent: 226 lb 9.6 oz I&O - Last 24 Hours: Intake & Output 08/10/21 08/11/21 08/11/21 22:59 06:59 14:59 Intake Total 1170 1000 Output Total 900 1050 Balance 270 -50 Lab Results Last 24 Hours: Laboratory Results - last 24 hr 08/10/21 08/10/21 08/11/21 Range/Units 16:38 21:58 06:42 WBC (3.98-10.04) K/mm3 RBC (3.98-5.22) M/mm3 Hgb (11.2-15.7) gm/dl Hct (34.1-44.9) % MCV (79.4-94.8) fl MCH (25.6-32.2) pg MCHC (32.2-35.5) g/dl RDW Std Deviation (36.4-46.3) fL Plt Count (182-369) K/mm3 MPV (9.4-12.3) fl Neut % (Auto) (34.0-71.1) % Lymph % (Auto) (19.3-51.7) % [place] % (Auto) (4.7-12.5) % Eos % (Auto) (0.7-5.8) Baso % (Auto) (0.1-1.2) % Neut # (Auto) (1.56-6.13) K/mm3 Lymph # (Auto) (1.18-3.74) K/mm3 [place] # (Auto) (0.24-0.36) K/mm3 Eos # (Auto) (0.04-0.36) K/mm3 Baso # (Auto) (0.01-0.08) K/mm3 D-Dimer, Quantitative (0.19-0.50) mg/L Sodium (136-145) mEq/L Potassium (3.5-5.1) mEq/L Chloride (98-107) mEq/L Carbon Dioxide (21-32) mEq/L Anion Gap (5-15) BUN (7-18) mg/dL Creatinine (0.55-1.02) mg/dL Est Cr Clr Drug Dosing mL/min Estimated GFR (MDRD) (>60) mL/min BUN/Creatinine Ratio (14-18) Glucose (70-99) mg/dL POC Glucose 162 H 139 H 127 H (70-99) mg/dL Calcium (8.5-10.1) mg/dL Total Bilirubin (0.2-1.0) mg/dL AST (15-37) U/L ALT (14-59) U/L Alkaline Phosphatase (46-116) U/L C-Reactive Protein (<1.0) mg/dL Total Protein (6.4-8.2) g/dl Albumin (3.4-5.0) g/dl Globulin gm/dL Albumin/Globulin Ratio (1-2) Vancomycin Trough (10.0-20.0) 08/11/21 08/11/21 08/11/21 Range/Units 09:50 09:50 09:50 WBC 6.23 (3.98-10.04) K/mm3 RBC 3.89 L (3.98-5.22) M/mm3 Hgb 11.8 D (11.2-15.7) gm/dl Hct 38.7 (34.1-44.9) % MCV 99.5 H (79.4-94.8) fl MCH 30.3 (25.6-32.2) pg MCHC 30.5 L (32.2-35.5) g/dl RDW Std Deviation 62.3 H (36.4-46.3) fL Plt Count 369 D (182-369) K/mm3 MPV 8.8 L (9.4-12.3) fl Neut % (Auto) 51.3 (34.0-71.1) % Lymph % (Auto) 38.4 (19.3-51.7) % [place] % (Auto) 9.0 (4.7-12.5) % Eos % (Auto) 0.8 (0.7-5.8) Baso % (Auto) 0.2 (0.1-1.2) % Neut # (Auto) 3.20 (1.56-6.13) K/mm3 Lymph # (Auto) 2.39 (1.18-3.74) K/mm3 [place] # (Auto) 0.56 H (0.24-0.36) K/mm3 Eos # (Auto) 0.05 (0.04-0.36) K/mm3 Baso # (Auto) 0.01 (0.01-0.08) K/mm3 D-Dimer, Quantitative 5.91 H (0.19-0.50) mg/L Sodium 140 (136-145) mEq/L Potassium 3.3 L (3.5-5.1) mEq/L Chloride 99 (98-107) mEq/L Carbon Dioxide 35 H (21-32) mEq/L Anion Gap 9.3 (5-15) BUN 11 (7-18) mg/dL Creatinine 0.8 (0.55-1.02) mg/dL Est Cr Clr Drug Dosing 79.07 mL/min Estimated GFR (MDRD) > 60 (>60) mL/min BUN/Creatinine Ratio 13.8 L (14-18) Glucose 121 H (70-99) mg/dL POC Glucose (70-99) mg/dL Calcium 8.3 L (8.5-10.1) mg/dL Total Bilirubin 0.3 (0.2-1.0) mg/dL AST 32 (15-37) U/L ALT 37 (14-59) U/L Alkaline Phosphatase 61 (46-116) U/L C-Reactive Protein 1.3 H* (<1.0) mg/dL Total Protein 7.4 (6.4-8.2) g/dl Albumin 2.7 L (3.4-5.0) g/dl Globulin 4.7 gm/dL Albumin/Globulin Ratio 0.6 L (1-2) Vancomycin Trough (10.0-20.0) 08/11/21 08/11/21 Range/Units 09:50 10:42 WBC (3.98-10.04) K/mm3 RBC (3.98-5.22) M/mm3 Hgb (11.2-15.7) gm/dl Hct (34.1-44.9) % MCV (79.4-94.8) fl MCH (25.6-32.2) pg MCHC (32.2-35.5) g/dl RDW Std Deviation (36.4-46.3) fL Plt Count (182-369) K/mm3 MPV (9.4-12.3) fl Neut % (Auto) (34.0-71.1) % Lymph % (Auto) (19.3-51.7) % [place] % (Auto) (4.7-12.5) % Eos % (Auto) (0.7-5.8) Baso % (Auto) (0.1-1.2) % Neut # (Auto) (1.56-6.13) K/mm3 Lymph # (Auto) (1.18-3.74) K/mm3 [place] # (Auto) (0.24-0.36) K/mm3 Eos # (Auto) (0.04-0.36) K/mm3 Baso # (Auto) (0.01-0.08) K/mm3 D-Dimer, Quantitative (0.19-0.50) mg/L Sodium (136-145) mEq/L Potassium (3.5-5.1) mEq/L Chloride (98-107) mEq/L Carbon Dioxide (21-32) mEq/L Anion Gap (5-15) BUN (7-18) mg/dL Creatinine (0.55-1.02) mg/dL Est Cr Clr Drug Dosing mL/min Estimated GFR (MDRD) (>60) mL/min BUN/Creatinine Ratio (14-18) Glucose (70-99) mg/dL POC Glucose 142 H (70-99) mg/dL Calcium (8.5-10.1) mg/dL Total Bilirubin (0.2-1.0) mg/dL AST (15-37) U/L ALT (14-59) U/L Alkaline Phosphatase (46-116) U/L C-Reactive Protein (<1.0) mg/dL Total Protein (6.4-8.2) g/dl Albumin (3.4-5.0) g/dl Globulin gm/dL Albumin/Globulin Ratio (1-2) Vancomycin Trough 28.0 H (10.0-20.0) Ang Results Last 24 Hours: Microbiology 08/08/21 13:50 Blood Culture - Preliminary Blood - Venous - Lab Draw 08/08/21 13:45 Blood Culture - Preliminary Blood - Venous Med Orders - Current: Current Medications Albuterol (Albuterol 0.083% 2.5 Mg/3 Ml Neb Soln) 2.5 mg NEB Q6HRRT PRN PRN Reason: Wheezing Albuterol (Albuterol 6.7 Gm Inhaler) 0 gm INH Q2H PRN PRN Reason: SOB/Wheezing Albuterol/Ipratropium (Albuterol/Ipratropium 3.0-0.5 Mg/3 Ml Neb Soln) 3 ml NEB QIDRT PRN PRN Reason: SOB/Wheezing Apixaban (Apixaban 5 Mg Tab) 10 mg PO BID [facility] Stop: 08/14/21 21:01 Last Admin: 08/11/21 08:38 Dose: 10 mg Documented by: Cholecalciferol (Cholecalciferol (Vitamin D3) 5,000 Unit Cap) 5,000 unit PO DAILY [facility] Last Admin: 08/11/21 08:39 Dose: 5,000 unit Documented by: Dexamethasone (Dexamethasone 6 Mg Tablet) 6 mg PO DAILY [facility] Stop: 08/16/21 09:01 Last Admin: 08/11/21 08:38 Dose: 6 mg Documented by: Furosemide (Furosemide 20 Mg/2 Ml Vial) 20 mg IVPUSH DAILY [facility] Last Admin: 08/11/21 08:39 Dose: 20 mg Documented by: Ceftriaxone Sodium 2 gm/ (Sodium Chloride) 100 mls @ 200 mls/hr IV Q24H [facility] Stop: 08/11/21 20:29 Last Admin: 08/10/21 21:59 Dose: 200 mls/hr Documented by: Remdesivir 100 mg/ Sodium (Chloride) 250 mls @ 250 mls/hr IV Q24H [facility] Stop: 08/11/21 22:01 Last Admin: 08/10/21 22:01 Dose: 250 mls/hr Documented by: Vancomycin HCl 1 gm/Vancomycin HCl 250 mg/ Sodium Chloride 250 mls @ 166 mls/hr IV Q12H [facility] Insulin Human Lispro (Insulin Lispro 100 Unit/Ml 3 Ml Kwikpen) 0 unit SUBCUT WITHMEALSANDBED [facility]; Protocol Last Admin: 08/11/21 11:17 Dose: Not Given Documented by: Losartan Potassium (Losartan 25 Mg Tab) 25 mg PO DAILY [facility] Last Admin: 08/11/21 08:37 Dose: 25 mg Documented by: Ondansetron HCl (Ondansetron 4 Mg/2 Ml Sdv) 4 mg IVPUSH Q8HR PRN PRN Reason: Nausea/Vomiting Last Admin: 08/10/21 10:30 Dose: 4 mg Documented by: Sodium Chloride (Sodium Chloride 0.9% 10 Ml Syringe) 10 ml FLUSH 0900,2100 [facility] Last Admin: 08/11/21 08:40 Dose: 10 ml Documented by: Trazodone HCl (Trazodone 50 Mg Tab) 50 mg PO BEDTIME PRN PRN Reason: Insomnia Last Admin: 08/08/21 20:32 Dose: 50 mg Documented by: Vancomycin HCl (Pharmacy To Dose - Vancomycin) 1 dose .XX ASDIRECTED PRN PRN Reason: RX TO DOSE VANCO Zinc Sulfate (Zinc Sulfate 220 Mg Cap) 220 mg PO DAILY [facility] Last Admin: 08/11/21 08:38 Dose: 220 mg Documented by: Discontinued Medications Dexamethasone (Dexamethasone 6 Mg Tablet) 6 mg PO DAILY [facility] Last Admin: 08/08/21 01:44 Dose: Not Given Documented by: Dexamethasone (Dexamethasone 6 Mg Tablet) 6 mg PO DAILY [facility] Enoxaparin Sodium (Enoxaparin 40 Mg/0.4 Ml Syringe) 40 mg SUBCUT BEDTIME [facility] Last Admin: 08/07/21 20:00 Dose: 40 mg Documented by: Furosemide (Furosemide 20 Mg/2 Ml Vial) 20 mg IVPUSH NOW ONE Stop: 08/07/21 17:31 Last Admin: 08/07/21 18:53 Dose: 20 mg Documented by: Hyaluronidase (Hyaluronidase, Human Recombinant 150 Units/1 Ml Sdv) 150 units SUBCUT ONETIME ONE Stop: 08/09/21 00:08 Last Admin: 08/09/21 00:26 Dose: 150 units Documented by: Ceftriaxone Sodium 2 gm/ (Sodium Chloride) 100 mls @ 200 mls/hr IV Q24H [facility] Last Admin: 08/07/21 19:57 Dose: Not Given Documented by: Remdesivir 200 mg/ Sodium (Chloride) 250 mls @ 250 mls/hr IV ONETIME ONE Stop: 08/07/21 22:01 Last Admin: 08/08/21 01:21 Dose: Not Given Documented by: Remdesivir 200 mg/ Sodium (Chloride) 250 mls @ 250 mls/hr IV ONETIME ONE Stop: 08/08/21 01:59 Last Admin: 08/08/21 01:21 Dose: 250 mls/hr Documented by: Azithromycin 500 mg/ Sodium (Chloride) 250 mls @ 250 mls/hr IV Q24H [facility] Stop: 08/10/21 10:59 Last Admin: 08/10/21 09:01 Dose: 250 mls/hr Documented by: Sodium Chloride (Normal Saline) 100 mls @ 60 mls/hr IV ASDIRECTED [facility] Stop: 08/08/21 12:00 Last Admin: 08/08/21 10:25 Dose: 60 mls/hr Documented by: Vancomycin HCl 1 gm/Vancomycin HCl 500 mg/ Sodium Chloride 500 mls @ 250 mls/hr IV ONETIME ONE Stop: 08/08/21 16:29 Last Admin: 08/08/21 15:01 Dose: 250 mls/hr Documented by: Vancomycin HCl 1 gm/Vancomycin HCl 250 mg/ Sodium Chloride 250 mls @ 166.667 mls/hr IV Q18H [facility] Vancomycin HCl 1 gm/Vancomycin HCl 250 mg/ Sodium Chloride 250 mls @ 166.667 mls/hr IV Q18H [facility] Last Admin: 08/10/21 02:08 Dose: 166.667 mls/hr Documented by: Sodium Chloride (Normal Saline) Confirm Administered Dose 250 mls @ as directed .ROUTE .STK-MED ONE Stop: 08/09/21 01:18 Last Admin: 08/09/21 02:24 Dose: Not Given Documented by: Magnesium Sulfate 2 gm/ Premix 50 mls @ 25 mls/hr IV ONETIME ONE Stop: 08/09/21 14:50 Last Admin: 08/09/21 13:17 Dose: 25 mls/hr Documented by: Vancomycin HCl 1 gm/Vancomycin HCl 250 mg/ Sodium Chloride 250 mls @ 166 mls/hr IV Q8H [facility] Last Admin: 08/11/21 10:35 Dose: Not Given Documented by: Iopamidol (Iopamidol 755 Mg/Ml 100 Ml Bottle) 100 ml IVPUSH ONETIME ONE Stop: 08/08/21 09:45 Last Admin: 08/08/21 10:24 Dose: 100 ml Documented by: Ondansetron HCl (Ondansetron 4 Mg/2 Ml Sdv) Confirm Administered Dose 4 mg .ROUTE .STK-MED ONE Stop: 08/10/21 10:15 Last Admin: 08/10/21 15:54 Dose: Not Given Documented by: Potassium Chloride (Potassium Chloride 20 Meq Tab.Er) 20 meq PO BID [facility] Stop: 08/08/21 22:00 Last Admin: 08/08/21 20:31 Dose: 20 meq Documented by: Potassium Chloride (Potassium Chloride 20 Meq Tab.Er) 20 meq PO ONETIME ONE Stop: 08/10/21 15:15 Last Admin: 08/10/21 15:54 Dose: 20 meq Documented by: Sodium Chloride (Sodium Chloride 0.9% 10 Ml Syringe) 10 ml FLUSH ONETIME ONE Stop: 08/08/21 09:45 Last Admin: 08/08/21 11:47 Dose: 10 ml Documented by: - Exam Quality Assessment: Supplemental Oxygen General: Alert, Oriented HEENT: Pupils Equal, Mucous Membr. Moist/[place] Neck: Supple Lungs: Normal Respiratory Effort, Crackles Cardiovascular: Regular Rate, Regular Rhythm GI/Abdominal Exam: Normal Bowel Sounds, Soft, Non-Tender, No Distention Extremities: Normal Inspection, No Pedal Edema, Normal Capillary Refill Skin: Warm, Dry, Intact Psy/Mental Status: Alert, Normal Affect, Normal Mood - Patient Data Lab Results Last 24 hrs: Laboratory Results - last 24 hr 08/10/21 08/10/21 08/11/21 Range/Units 16:38 21:58 06:42 WBC (3.98-10.04) K/mm3 RBC (3.98-5.22) M/mm3 Hgb (11.2-15.7) gm/dl Hct (34.1-44.9) % MCV (79.4-94.8) fl MCH (25.6-32.2) pg MCHC (32.2-35.5) g/dl RDW Std Deviation (36.4-46.3) fL Plt Count (182-369) K/mm3 MPV (9.4-12.3) fl Neut % (Auto) (34.0-71.1) % Lymph % (Auto) (19.3-51.7) % [place] % (Auto) (4.7-12.5) % Eos % (Auto) (0.7-5.8) Baso % (Auto) (0.1-1.2) % Neut # (Auto) (1.56-6.13) K/mm3 Lymph # (Auto) (1.18-3.74) K/mm3 [place] # (Auto) (0.24-0.36) K/mm3 Eos # (Auto) (0.04-0.36) K/mm3 Baso # (Auto) (0.01-0.08) K/mm3 D-Dimer, Quantitative (0.19-0.50) mg/L Sodium (136-145) mEq/L Potassium (3.5-5.1) mEq/L Chloride (98-107) mEq/L Carbon Dioxide (21-32) mEq/L Anion Gap (5-15) BUN (7-18) mg/dL Creatinine (0.55-1.02) mg/dL Est Cr Clr Drug Dosing mL/min Estimated GFR (MDRD) (>60) mL/min BUN/Creatinine Ratio (14-18) Glucose (70-99) mg/dL POC Glucose 162 H 139 H 127 H (70-99) mg/dL Calcium (8.5-10.1) mg/dL Total Bilirubin (0.2-1.0) mg/dL AST (15-37) U/L ALT (14-59) U/L Alkaline Phosphatase (46-116) U/L C-Reactive Protein (<1.0) mg/dL Total Protein (6.4-8.2) g/dl Albumin (3.4-5.0) g/dl Globulin gm/dL Albumin/Globulin Ratio (1-2) Vancomycin Trough (10.0-20.0) 08/11/21 08/11/21 08/11/21 Range/Units 09:50 09:50 09:50 WBC 6.23 (3.98-10.04) K/mm3 RBC 3.89 L (3.98-5.22) M/mm3 Hgb 11.8 D (11.2-15.7) gm/dl Hct 38.7 (34.1-44.9) % MCV 99.5 H (79.4-94.8) fl MCH 30.3 (25.6-32.2) pg MCHC 30.5 L (32.2-35.5) g/dl RDW Std Deviation 62.3 H (36.4-46.3) fL Plt Count 369 D (182-369) K/mm3 MPV 8.8 L (9.4-12.3) fl Neut % (Auto) 51.3 (34.0-71.1) % Lymph % (Auto) 38.4 (19.3-51.7) % [place] % (Auto) 9.0 (4.7-12.5) % Eos % (Auto) 0.8 (0.7-5.8) Baso % (Auto) 0.2 (0.1-1.2) % Neut # (Auto) 3.20 (1.56-6.13) K/mm3 Lymph # (Auto) 2.39 (1.18-3.74) K/mm3 [place] # (Auto) 0.56 H (0.24-0.36) K/mm3 Eos # (Auto) 0.05 (0.04-0.36) K/mm3 Baso # (Auto) 0.01 (0.01-0.08) K/mm3 D-Dimer, Quantitative 5.91 H (0.19-0.50) mg/L Sodium 140 (136-145) mEq/L Potassium 3.3 L (3.5-5.1) mEq/L Chloride 99 (98-107) mEq/L Carbon Dioxide 35 H (21-32) mEq/L Anion Gap 9.3 (5-15) BUN 11 (7-18) mg/dL Creatinine 0.8 (0.55-1.02) mg/dL Est Cr Clr Drug Dosing 79.07 mL/min Estimated GFR (MDRD) > 60 (>60) mL/min BUN/Creatinine Ratio 13.8 L (14-18) Glucose 121 H (70-99) mg/dL POC Glucose (70-99) mg/dL Calcium 8.3 L (8.5-10.1) mg/dL Total Bilirubin 0.3 (0.2-1.0) mg/dL AST 32 (15-37) U/L ALT 37 (14-59) U/L Alkaline Phosphatase 61 (46-116) U/L C-Reactive Protein 1.3 H* (<1.0) mg/dL Total Protein 7.4 (6.4-8.2) g/dl Albumin 2.7 L (3.4-5.0) g/dl Globulin 4.7 gm/dL Albumin/Globulin Ratio 0.6 L (1-2) Vancomycin Trough (10.0-20.0) 08/11/21 08/11/21 Range/Units 09:50 10:42 WBC (3.98-10.04) K/mm3 RBC (3.98-5.22) M/mm3 Hgb (11.2-15.7) gm/dl Hct (34.1-44.9) % MCV (79.4-94.8) fl MCH (25.6-32.2) pg MCHC (32.2-35.5) g/dl RDW Std Deviation (36.4-46.3) fL Plt Count (182-369) K/mm3 MPV (9.4-12.3) fl Neut % (Auto) (34.0-71.1) % Lymph % (Auto) (19.3-51.7) % [place] % (Auto) (4.7-12.5) % Eos % (Auto) (0.7-5.8) Baso % (Auto) (0.1-1.2) % Neut # (Auto) (1.56-6.13) K/mm3 Lymph # (Auto) (1.18-3.74) K/mm3 [place] # (Auto) (0.24-0.36) K/mm3 Eos # (Auto) (0.04-0.36) K/mm3 Baso # (Auto) (0.01-0.08) K/mm3 D-Dimer, Quantitative (0.19-0.50) mg/L Sodium (136-145) mEq/L Potassium (3.5-5.1) mEq/L Chloride (98-107) mEq/L Carbon Dioxide (21-32) mEq/L Anion Gap (5-15) BUN (7-18) mg/dL Creatinine (0.55-1.02) mg/dL Est Cr Clr Drug Dosing mL/min Estimated GFR (MDRD) (>60) mL/min BUN/Creatinine Ratio (14-18) Glucose (70-99) mg/dL POC Glucose 142 H (70-99) mg/dL Calcium (8.5-10.1) mg/dL Total Bilirubin (0.2-1.0) mg/dL AST (15-37) U/L ALT (14-59) U/L Alkaline Phosphatase (46-116) U/L C-Reactive Protein (<1.0) mg/dL Total Protein (6.4-8.2) g/dl Albumin (3.4-5.0) g/dl Globulin gm/dL Albumin/Globulin Ratio (1-2) Vancomycin Trough 28.0 H (10.0-20.0) Result Diagrams: 08/11/21 09:50 08/11/21 09:50 Ang Results Last 24 hrs: Microbiology 08/08/21 13:50 Blood Culture - Preliminary Blood - Venous - Lab Draw 08/08/21 13:45 Blood Culture - Preliminary Blood - Venous Sepsis Event Note - Evaluation Sepsis Screening Result: No Definite Risk - Focused Exam Vital Signs: Vital Signs Temp Pulse Resp BP Pulse Ox Pulse Ox 08/11/21 11:13 97.7 F 76 20 126/52 L 90 L 08/11/21 09:00 91 L 08/11/21 08:37 122/72 08/11/21 08:33 97.9 F 68 14 122/72 91 L 08/11/21 02:58 97.2 F 71 13 114/68 91 L - Problem List & Annotations (1) Acute hypoxemic respiratory failure SNOMED Code(s): 040179817 Code(s): J96.01 - ACUTE RESPIRATORY FAILURE WITH HYPOXIA Status: Acute Priority: High Current Visit: Yes (2) New onset type 2 diabetes mellitus SNOMED Code(s): 28127302 Code(s): E11.9 - TYPE 2 DIABETES MELLITUS WITHOUT COMPLICATIONS Status: Acute Priority: High Current Visit: Yes (3) Pneumonia due to COVID-19 virus SNOMED Code(s): 386193434629159980 Code(s): U07.1 - COVID-19; J12.82 - PNEUMONIA DUE TO CORONAVIRUS DISEASE 2019 Status: Acute Priority: High Current Visit: Yes (4) Pulmonary emboli SNOMED Code(s): 65945736 Code(s): I26.99 - OTHER PULMONARY EMBOLISM WITHOUT ACUTE COR PULMONALE Status: Acute Priority: High Current Visit: Yes Qualifiers: Pulmonary embolism type: other Chronicity: acute Acute cor pulmonale presence: with acute cor pulmonale Qualified Code(s): I26.09 - Other pulmonary embolism with acute cor pulmonale - Problem List Review Problem List Initiated/Reviewed/Updated: Yes - My Orders Last 24 Hours: My Active Orders 08/10/21 12:24 Ondansetron [Zofran] 4 mg IVPUSH Q8HR PRN 08/12/21 05:11 MAGNESIUM [CHEM] AM PHOSPHORUS [CHEM] AM - Assessment Assessment:: 08/07/2021 assess: 1// hypoxia/tachipnea with new infiltrates and heart failure symptoms worsening over last 6 months 2// recent uri/bronchitis prob. covid screen ordered.. 3// cardiac enlargment ? etiology. echo and ekg and trop ordered but no hx of cad valvular or other known cause . ? covid and rt heart failure related to microemoli or p.e. 4// increased edema started before weird flu? heart failure and now pneumonia on xray . obesity . 5// cellulitis legs without def. vasculitis and or varicosities . lymphedema. 6// multiple carious teeth no hx of drug and or meth or etoh abuse or use. non smoker. plan o2/ d dimer/ rule out p.e and rt heart failure. ekg rule out silent ami. covid flu /rsv screen/// start nebs echo.// ekg telemety tonight. antibiotics // lasix and heart failure treatment started. screen for diabetes and other causes. diabetic ed and monitor b.s d.e and dietary teaching. boh 08/08/2021 46-year-old female who was a direct admit from the [facility] walk-in clinic with concerns over possible new onset elevated BNP. On admission further work-up involved hemoglobin A1c which was 6.7 and troponin which was 0.033. TSH was 3.512. Patient was found to be Covid positive. D-dimer was elevated at 4.38. Patient was sent for a CTA which showed "1. Extensive pulmonary emboli within both sides of the chest which also involve the distal right and left main pulmonary arteries. 2. Minimal decompensation of the right heart is seen. 3. Patchy areas of increased density within the chest most likely representing a combination of Covid pneumonia and superimposed change from pulmonary emboli. Prior to CTA patient had been started on empiric 10 mg Eliquis twice daily for 7 days. This will be continued now with confirmation of her pulmonary emboli. Echocardiogram was obtained and shows 1. Left ventricular ejection fraction, by visual estimation, is 60-65%. 2. Normal pattern of LV diastolic filling. 3. Right ventricle is not well visualized in apical views. Unable to assess size or function but appears enlarged in some views. Abnormal septal bounce and some D-shaped septal flattening consistent with pulmonary hypertension. 4. Aortic valve is tricuspid and structurally normal. 5. Mild aortic valve regurgitation. 6. Trace mitral valve regurgitation. 7. Mild cuspid valve regurgitation. 8. The right ventricular systolic pressure is moderately elevated at 54.5 mmHg. 9. 1.3 x 0.2 cm indeterminate linear echodensity attached to posterior mitral leaflet on the left atrial side (frame 4). Differential includes artifact or vegetation. Apical images are too limited for different axis visualization. Consider cardiology consult plus or minus MELQUIADES, correlate clinically. 10. No regional wall motion abnormalities. 11. Technically difficult study with suboptimal image quality, especially apical images. Recommend Definity contrast with future slides. Contacted Dr. De Jesus, pedigree researcher with [facility] in [place] who interpreted the echocardiogram to discuss findings and recommendations. He stated because of patient's Covid symptoms they would likely not perform any intervention at this time. Unfortunately blood cultures had not been obtained yesterday prior to starting patient on antibiotics and we will order these now. We will screen the patient for MRSA but also start her on vancomycin. Patient does has risk factors for endocarditis including her current lower extremity cellulitis and very poor dentition. Because of this Dr. De Jesus recommends patient follow-up with cardiology within 2 weeks after discharge. Otherwise patient continues on dexamethasone and remdesivir for her COVID-19 pneumonia. She remains on 1 L. She has had no leukocytosis and her RBC is 3.56 currently. Hemoglobin is 10.8. Platelet 261,000. Neutrophils are elevated at 84.8%. D-dimer as mentioned prior was 4.38. ABG was obtained in the right radial yesterday showing a pH of 7.48. PCO2 of 40.5. PO2 of 52.0. HCO3 of 29.5. O2 saturations were 88%. Base excess was 5.8. AA gradient was 47. This was obtained on room air. Sodium today is 139. Potassium 3.5. Chloride 99. Carbon dioxide 30. Anion gap 13.5. BUN is 25. Creatinine 1.7. GFR is 32. Glucose has been between 170 and 117. Hemoglobin A1c was 6.7. Bilirubin is 0.2. AST is 27, ALT 18, alkaline phosphatase 182. CRP today was 30.2. proBNP was 1544. Protein was 7.2. Albumin was 2.2. Vitamin D was low at 26.0 and patient was started on 5000 units daily supplementation. Overall patient reports she feels okay but she is having leg pain. Advised patient to elevate her extremities due to her edema. She does state that her edema has improved since admission. We discussed follow-up and plan for care. Patient requested that I contact her and I will do the shortly. No acute concerns. Length of stay likely 4 to 5 days pending improvement with Covid symptoms and pedal edema. We will start the patient on 20 mg daily IV push Lasix for now given her renal function and monitor. 08/09/2021 The patient is a 46-year-old lady who was admitted and subsequently found to have COVID-19 pneumonia with acute respiratory failure. Patient will be kept on oxygen to keep her saturations around 92%. The patient is on remdesivir and her last dose of 100 mg IV will be tonight. This will not be continued. The patient is also on dexamethasone as well. Out of concern for pneumonia the patient will be kept on ceftriaxone for now and her antibiotics will be deescalated as indicated. A CT scan was ordered previously as her D-dimer had elevated markedly. The patient was found to have extensive bilateral pulmonary emboli and she is also on starter dose of apixaban 10 mg p.o. twice daily. The patient will need to be on this for indeterminate time. The patient also had a 2D echocardiogram which was technically difficult with suboptimal images but there was some concern with regards to mitral valve leaflet vegetation and specialty echocardiogram was recommended. See previous note from physicians dental assistant teacher. Repeat laboratory studies have been ordered. The chest x-ray is also been ordered for the morning. The patient will be maintained on her appropriate diabetic diet. She is also on insulin sliding scale. The patient should be appropriate for discharge once her oxygen demands have improved in 1 to 2 days. 08/10/2021 46-year-old female admitted with COVID-19 pneumonia, bilateral pulmonary emboli with right heart strain, cellulitis, and acute respiratory failure. Procalcitonin is 0.23 and white count is stable at 6. She is currently on ceftriaxone and vancomycin. She has had improvement in her oxygenation is down to 1 L. She is on day 4 of 5 of remdesivir. She continues on dexamethasone 6 mg daily. She is on the loading dose of Eliquis at 10 mg twice daily. She will be following up with cardiology within 2 weeks. Patient continues to improve and will likely be discharged on Thursday or Thursday. August 11, 2021 46-year-old female with Covid pneumonia and bilateral pulmonary emboli, cell ulitis, and respiratory failure is stable on 1 L, but drops to 65% on room air. She does have some low potassium at 3.3. CRP is down to 1.3 and white count is 6.2. She is on ceftriaxone and vancomycin. Vanco trough was high so this dose will be held. Today is day 5 of remdesivir and dexamethasone. She continues on Eliquis 10 mg twice daily. - Plan Plan:: Pneumonia due to COVID-19 virus Acute hypoxemic respiratory failure * Droplet/airborne precautions * Respiratory therapy consultation * O2 as needed with goal saturations 87 to 95% * I-S/Acapella * Every 48 hour D-dimer checks * Daily labs * 6 mg dexamethasone for 10 days total * Remdesivir for 5 days total * Zinc supplementation * As needed albuterol nebulizer * As needed albuterol MDI * As needed DuoNebs * Prone whenever able * 2 g Rocephin daily * 500 mg azithromycin for 3 days * Ambulate around room * Telemetry * Continuous pulse oximetry Pulmonary emboli * Eliquis 10 mg twice daily for 7 days then transition to 5 mg twice daily * Continuous pulse oximetry * Cardiology follow-up within 2 weeks after discharge (Per Dr. De Jesus, Cardiology) Suspected CHF (congestive heart failure) Pedal edema * 2 g sodium restriction * Echo obtained as noted -poor echo windows * Right ventricle findings skewed by poor windows pulmonary emboli causing right heart strain * 1.3 x 0.2 cm indeterminate linear echodensity attached to posterior mitral leaflet on the left atrial side (frame 4). Differential includes artifact or vegetation. * Follow-up in 2 weeks after discharge with cardiology per Dr. De Jesus, cardiology. * Elevate lower extremities whenever possible * IPV lasix as ordered New onset type 2 diabetes mellitus * Consistent carbohydrate diet * Dietitian consultation * certified diabetes educator consultation * 4 times daily before meals and bedtime blood glucose checks * Medium intensity sliding scale insulin * Monitor need for long-acting insulin * Anticipate rise in blood glucose levels due to steroid use as above Vitamin D deficiency * Daily 5000 units supplementation * PCP follow-up Cellulitis * Obtain wound culture if begin to drain * 2 g Rocephin daily * Vancomycin with pharmacy to dose Abnormal Echocardiogram * See echocardiogram report for full details * Very poor windows * Findings consistent with bilateral PEs as above * Indeterminate linear echodensity attached to posterior mitral leaflet on the left atrial side * Discussed case with Dr. De Jesus, pedigree researcher with [facility] in [place] * Recommends blood cultures * They avoid performing MELQUIADES's in Covid positive patients * Recommends follow-up with cardiology 2 weeks after discharge * Recommends MRSA screen * Recommends patient continue antibiotics Renal failure * Suspect baseline CKD however patient rarely sees medical provider * Avoid nephrotoxic agents if possible * Monitor Obesity (BMI 30-39.9) * Dietitian consult Poor dentition * Blood cultures pending * Monitor labs * Increases risk for bacteremia/endocarditis * Outpatient dental follow-up CODE STATUS: Full code PCP: None - needs to establish DVT prophylaxis: Eliquis Disposition: Patient will remain hospitalized for IV antibiotic treatment of cellulitis, questionable pneumonia, and treatment of COVID-19 pneumonia. Likely length of stay 4 to 5 days. Will require cardiology follow-up within 2 weeks after discharge as noted above.
[2021-08-11] MEDS ORDERED: Potassium Chloride 20 MEQ Tab.ER PO ONE (12:00)
[2021-08-11] MEDS: cefTRIAXone 2 GM in Sodium Chloride 0.9% 100 ML IV SCH (20:30)
[2021-08-11] MEDS: REMDESIVIR 100 MG in Sodium Chloride 0.9% 250 ML IV SCH (21:22)
[2021-08-12] MEDS ORDERED: Apixaban 5 MG Tab PO SCH ×2
[2021-08-12] MEDS ORDERED: metFORMIN 500 MG Tab PO SCH ×2
[2021-08-12] MEDS: Insulin Lispro 100 Unit/ML 3 ML KwikPen SUBCUT SCH ×2 (06:53→12:19)
[2021-08-12] MEDS: Dexamethasone 6 MG TABLET PO SCH (08:27)
[2021-08-12] MEDS: Losartan 25 MG Tab PO SCH (08:27)
[2021-08-12] MEDS: Furosemide 20 MG/2 ML VIAL IVPUSH SCH (08:27)
[2021-08-12] MEDS ORDERED: Magnesium Sulfate/Water 2 GM in Premix Bag 1 BAG IV ONE (08:28)
[2021-08-12] MEDS: Zinc Sulfate 220 MG Cap PO SCH (08:28)
[2021-08-12] MEDS: Apixaban 5 MG Tab PO SCH (08:28)
[2021-08-12] MEDS: Sodium Chloride 0.9% 10 ML Syringe FLUSH SCH (08:28)
[2021-08-12] MEDS: Cholecalciferol (Vitamin D3) 5,000 UNIT Cap PO SCH (08:28)
[2021-08-12] MEDS: Vancomycin 1 GM, Vancomycin 250 MG in Sodium Chloride 0.9% 250 ML IV SCH (08:29)
[2021-08-12] MEDS ORDERED: FLU Vacc QS2021-22 36MOS UP/PF 60 MCG/0.5 ML Syringe IM ONE (13:00)
--- NOTE | 2021-08-12 13:05 | PCM.DCSUM1 ---
Discharge Summary - Hospital Course HPI Initial Comments: 08/07/21 46 year old female with coughing and weird flu x one month // camargo getting worse with increased swelling both feet noted. describes increased camargo started before that and not coughing up much sputum but has mucous in her throat alot. she was seen in [facility] in clinic today and found hypoxic with abnormal chest xray. with findings of enlarged heart and infiltrate and ground glass opacities in bases. (no hx of work with asbestos and or silica occupational exposure) lab normal // no screening done and called to admit patient for heart failure. no ekg done. no hemoptysis,fever,chills recently but had with flu . no covid exposure as sits at home in her chair. denies chest pains orthopnea diabetes,snoring or apnea. pregnancies x 2 without difficulty . gaining weight as legs swelled. no calve pain ,no hx of dvt or p.e or clotting disorder. appetite good and follows no diet. fh father bipolar. all: none. surgeries none p.e. vs as recorded. obese cauc female with bad teeth and breathless with talking. lungs diffuse crackles and few ronchii and few wheezes both lung diaz. cor rrr no s3/4 or murmurs.no jvd abd obese ? spleen tip no hepatomegaly ext. legs 3plus symmetric edema and redness extending to below knees. cracks between toes no def. skin tears. ekg pending . labs normal mostly see report. urine normal. blood sugar 110 non fasting. creat .9 lfts normal. protein/alb normal . assess: 1// hypoxia/tachipnea with new infiltrates and heart failure symptoms worsening over last 6 months 2// recent uri/bronchitis prob. covid screen ordered.. 3// cardiac enlargment ? etiology. echo and ekg and trop ordered but no hx of cad valvular or other known cause . ? covid and rt heart failure related to microemoli or p.e. 4// increased edema started before weird flu? heart failure and now pneumonia on xray . obesity . 5// cellulitis legs without def. vasculitis and or varicosities . lymphedema. 6// multiple carious teeth no hx of drug and or meth or etoh abuse or use. non smoker. plan o2/ d dimer/ rule out p.e and rt heart failure. ekg rule out silent ami. covid flu /rsv screen/// start nebs echo.// ekg telemety tonight. antibiotics // lasix and heart failure treatment started. screen for diabetes and other causes. diabetic ed and monitor b.s d.e and dietary teaching. boh Diagnosis: Stroke: No - Discharge Data Discharge Date: 08/12/21 (Admit date: 08/07/2021) Discharge Disposition: Home, Self-Care 01 Condition: Good - Referral to Home Health Primary Care Physician: Ulysses Shaw MD - Discharge Diagnosis/Problem(s) (1) Pneumonia due to COVID-19 virus SNOMED Code(s): 168759014985425727 ICD Code: U07.1 - COVID-19; J12.82 - PNEUMONIA DUE TO CORONAVIRUS DISEASE 2018 Status: Acute Priority: High Current Visit: Yes (2) Suspected CHF (congestive heart failure) SNOMED Code(s): 725276676, 628701417 ICD Code: R09.89 - OTH SYMPTOMS AND SIGNS INVOLVING THE CIRC AND RESP SYSTEMS Status: Ruled-out Priority: High Current Visit: Yes (3) Pulmonary emboli SNOMED Code(s): 19759743 ICD Code: I26.99 - OTHER PULMONARY EMBOLISM WITHOUT ACUTE COR PULMONALE Status: Acute Priority: High Current Visit: Yes Qualifiers: Pulmonary embolism type: other Chronicity: acute Acute cor pulmonale presence: with acute cor pulmonale Qualified Code(s): I26.09 - Other pulmonary embolism with acute cor pulmonale (4) Cellulitis SNOMED Code(s): 111923376 ICD Code: L03.90 - CELLULITIS, UNSPECIFIED Status: Acute Priority: High Current Visit: Yes Qualifiers: Site of cellulitis: other site Qualified Code(s): L03.818 - Cellulitis of other sites (5) Obesity (BMI 30-39.9) SNOMED Code(s): 210972979, 792948053 ICD Code: E66.9 - OBESITY, UNSPECIFIED Status: Chronic Priority: High Current Visit: Yes Onset Date: ~08/07/21 (6) Acute hypoxemic respiratory failure SNOMED Code(s): 603773419 ICD Code: J96.01 - ACUTE RESPIRATORY FAILURE WITH HYPOXIA Status: Acute Priority: High Current Visit: Yes (7) Poor dentition SNOMED Code(s): 379052421 ICD Code: K08.9 - DISORDER OF TEETH AND SUPPORTING STRUCTURES, UNSPECIFIED Status: Chronic Priority: Medium Current Visit: Yes (8) New onset type 2 diabetes mellitus SNOMED Code(s): 44761896 ICD Code: E11.9 - TYPE 2 DIABETES MELLITUS WITHOUT COMPLICATIONS Status: Acute Priority: High Current Visit: Yes (9) Vitamin D deficiency SNOMED Code(s): 60968246 ICD Code: E55.9 - VITAMIN D DEFICIENCY, UNSPECIFIED Status: Acute Priority: Medium Current Visit: Yes (10) Abnormal echocardiogram SNOMED Code(s): 604440127 ICD Code: R93.1 - ABNORMAL FINDINGS ON DX IMAGING OF HEART AND COR CIRC Status: Acute Priority: High Current Visit: Yes (11) Pedal edema SNOMED Code(s): 632055693 ICD Code: R60.0 - LOCALIZED EDEMA Status: Chronic Priority: High Current Visit: Yes (12) Renal failure SNOMED Code(s): 02725668 ICD Code: N19 - UNSPECIFIED KIDNEY FAILURE Status: Resolved Priority: High Current Visit: Yes Qualifiers: Renal failure chronicity: unspecified chronicity Qualified Code(s): N19 - Unspecified kidney failure - Patient Summary/Data Consults: Consultations 08/08/21 08:24 Consult to Dietary Supervisor [CONS] Routine 08/08/21 12:49 Consult to Respiratory Therapy [Respiratory Care Assess and Treatment] [CONS] Routine 08/08/21 14:52 Consult to Physical Therapy [PT Evaluation and Treatment] [CONS] Routine Labs Pending at D/C: None Recommended Follow-up Testing/Procedures: Follow-up with primary care provider within 5 to 7 days of discharge, sooner if needed. * Patient discharged on Eliquis 10 mg twice daily due to pulmonary emboli. Last dose of 10 mg will be on 08/14/2021 at night. Patient should then switch to 5 mg twice daily. Prescription for both sent. * Discharged on 1 L oxygen at all times. * Recommended patient obtain a fingertip pulse oximeter and check her readings twice daily, recording them in a journal. Please review this journal. * Vitamin D level was low with patient will be discharged on 5000 units daily vitamin D. Please follow-up on this. * Patient does have chronic pedal edema. Discharged on 20 mg daily Lasix. Please follow-up on this and monitor potassium. * A1c was obtained and was 6.7. Patient did see our personal development educator and dietitian. Recommend follow-up with personal development educator after discharge. * Started on 500 mg long-acting Metformin with dinner. Patient will likely benefit from twice daily dosing in the future. * Prescribed as needed albuterol MDI. * BP was elevated while here and she was started on daily losartan. Instructed to obtain blood pressure cuff and check twice daily, recording in a journal. Please review this journal. Follow-up with cardiology within 2 weeks. * Indeterminate linear echodensity attached to posterior mitral leaflet on the left atrial side noted on echocardiogram * Discussed findings with cardiology who recommend follow-up 2 weeks after discharge. * Patient would likely benefit from MELQUIADES. Recommend patient establish with dentist soon after discharge due to poor dentition. Hospital Course: This is a 46-year-old female who was a direct admit from the [place] walk[facility]in [facility] with concerns over possible new onset elevated BNP and questionable CHF. On admission further work-up involved hemoglobin A1c which was 6.7 and troponin which was 0.033. TSH was 3.512. Patient was found to be Covid positive. D- dimer was elevated at 4.38. Patient was sent for a CTA which showed: "1. Extensive pulmonary emboli within both sides of the chest which also involve the distal right and left main pulmonary arteries. 2. Minimal decompensation of the right heart is seen. 3. Patchy areas of increased density within the chest most likely representing a combination of Covid pneumonia and superimposed change from pulmonary emboli." Prior to CTA patient had been started on empiric 10 mg Eliquis twice daily for 7 days. This will be continued now with confirmation of her pulmonary emboli. Echocardiogram was obtained and shows: "1. Left ventricular ejection fraction, by visual estimation, is 60-65%. 2. Normal pattern of LV diastolic filling. 3. Right ventricle is not well visualized in apical views. Unable to assess size or function but appears enlarged in some views. Abnormal septal bounce and some D-shaped septal fla ttening consistent with pulmonary hypertension. 4. Aortic valve is tricuspid and structurally normal. 5. Mild aortic valve regurgitation. 6. Trace mitral valve regurgitation. 7. Mild cuspid valve regurgitation. 8. The right ventricular systolic pressure is moderately elevated at 54.5 mmHg. 9. 1.3 x 0.2 cm indeterminate linear echodensity attached to posterior mitral leaflet on the left atrial side (frame 4). Differential includes artifact or vegetation. Apical images are too limited for different axis visualization. Consider cardiology consult plus or minus MELQUIADES, correlate clinically. 10. No regional wall motion abnormalities. 11. Technically difficult study with suboptimal image quality, especially apical images. Recommend Definity contrast with future slides." Contacted Dr. De Jesus, information systems manager with [facility] in [place] who interpreted the echocardiogram to discuss findings and recommendations. He stated because of patient's Covid symptoms they would likely not perform any intervention at this time. Unfortunately blood cultures had not been obtained and were obtained after a day of antibiotics. (These remained negative throughout her stay.) Patient does have very poor dentition. Given these factors Dr. De Jesus recommended follow-up within 2 weeks after discharge for possible MELQUIADES. He also stated patient will need follow-up regarding her right heart strain related to her pulmonary emboli. She completed 5 days of remdesivir and dexamethasone while here. Unfortunately we were unable to wean her completely off of oxygen, as her saturations would drop into the 80s on room air. She will be discharged on 1 L of oxygen at all times, as she was qualified by respiratory therapy. She will be prescribed an as needed albuterol MDI at discharge for shortness of breath. No steroid will be prescribed at discharge. She was instructed to continue to utilize her incentive spirometry and Acapella for 1-2 more weeks or until symptoms resolve. In regards to her new onset diabetes mellitus, she will be discharged on a diabetic diet. She did see our dietitian and personal development educator while here and these would be good resources for follow-up after discharge. Blood sugars have remained fairly stable, despite being on steroids. We will discharge her on 500 mg long-acting Metformin at supper. She would likely benefit from increased dosing in the future, which her PCP can follow-up on. Blood pressure was noted to be elevated and she was started on 25 mg losartan here with good control. This will be continued at discharge. She was instructed to obtain a blood pressure cuff and check her BP readings twice a day, recording them in a journal. PCP can follow-up with this. Vitamin D was obtained and was low. She was started on 5000 unit daily supplementation. This again can be followed up with by her primary care provider. On admission she was noted to have rather significant pedal edema and echocardiogram was obtained as above. Patient was started on IV push Lasix and will be transition to 20 mg daily p.o. Lasix at discharge. She was noted to have bilateral lower extremity cellulitis and was receiving Rocephin and vancomycin for this. Clinically her legs have greatly improved, and from a lab standpoint CRP trended downward. WBC remained WNL. She will be discharged on 3 days of 100 mg twice daily doxycycline p.o. for the cellulitis. She was instructed to continue to elevate her lower extremities at least twice daily or whenever possible. She will be discharged home today. Recommend follow-up with primary care provider within 5 to 7 days of discharge, sooner if needed. Recommend repeat CBC, CMP, and magnesium in follow-up. Consider repeat CXR. Please review blood pressure and pulse oximetry journals. Again recommend follow-up with dentist at next available and cardiology follow- up within 2 weeks. - Patient Instructions Diet: Diabetic Diet Activity: As Tolerated Driving: Do Not Drive Showering/Bathing: May Shower Notify Provider of: Fever, Increased Pain, Nausea and/or Vomiting Other/Special Instructions: Follow-up with your primary care provider within 5 to 7 days of discharge, sooner if needed. Follow-up with cardiology within 2 weeks of discharge. Strongly recommend you obtain a dental visit in the near future. You were started on a diabetic medication. This is a simple pill. You should take it daily with dinner. There is no need to check your blood sugar readings with this as your primary care provider will check these when you come in. Your blood pressure has been high while here and you were started on a medication called losartan or Cozaar. You should take 1 tablet of this daily. Recommend you obtain a battery-powered blood pressure cuff from [employer] or your local pharmacy and check your blood pressures twice daily. Record this in a journal and bring this with to all medical appointments. You have some rather significant blood clots in your lungs. You were started on the medication called Eliquis or apixaban which will help break down these clots. You will need to take 10 mg or 2 tablets twice a day with your last dose on 08-14-2019 2 in the evening. You will then start 1 tablet or 5 mg twice a day on the morning of 08/15/2021. Due to your lower extremity swelling you were started on Lasix 20 mg daily. Please elevate your lower legs twice a day. You were given an as needed albuterol inhaler for shortness of breath and wheezing. Take 2 puffs as needed every 2 hours. Due to your lower extremity cellulitis you should continue a medication called doxycycline. You will take 100 mg every 12 hours for the next 3 days until gone. Your vitamin D was low here and you were started on supplementation. You should take 5000 units daily. Your primary care provider may adjust this in the future. You were Covid positive while here and should continue to quarantine/isolate as directed. You will likely receive a call from a public health technologist for the [facility]. Please follow their directions. You should continue to wear oxygen, 1 L at all times. Recommend you obtain a fingertip pulse oximeter. These are available at [facility] or your local pharmacy. Check your pulse oximetry readings twice a day and record them in a journal. Bring this with to all medical appointments. Continue to utilize your incentive spirometer (clearblue device you inhale through) and Acapella (tubelike device you blow through) for 1 to 2 weeks or until symptoms resolve. Should symptoms return or worsen contact your primary care provider or return to the emergency room. - Discharge Plan *PRESCRIPTION DRUG MONITORING PROGRAM REVIEWED*: No *COPY OF PRESCRIPTION DRUG MONITORING REPORT IN PATIENT ABA: No Prescriptions/Med Rec: Losartan [Cozaar] 25 mg PO DAILY #20 tablet Apixaban [Eliquis] 10 mg PO BID #10 tablet Apixaban [Eliquis] 5 mg PO BID #20 tablet metFORMIN [Glucophage XR] 500 mg PO WITHDINNER #20 tab.er Furosemide [Lasix] 20 mg PO DAILY #20 tab Albuterol [Proventil HFA] 2 puff INH Q2H PRN #1 inhaler PRN Reason: SOB/Wheezing Doxycycline [Vibra-Tabs] 100 mg PO Q12HR #6 tab Cholecalciferol (Vitamin D3) [Vitamin D3] 5,000 unit PO DAILY #20 cap Home Medications: Home Meds Albuterol [Proventil HFA] 2 puff INH Q2H PRN #1 inhaler 08/12/21 [Rx] Apixaban [Eliquis] 5 mg PO BID #20 tablet 08/12/21 [Rx] Apixaban [Eliquis] 10 mg PO BID #10 tablet 08/12/21 [Rx] Cholecalciferol (Vitamin D3) [Vitamin D3] 5,000 unit PO DAILY #20 cap 08/12/21 [Rx] Doxycycline [Vibra-Tabs] 100 mg PO Q12HR #6 tab 08/12/21 [Rx] Furosemide [Lasix] 20 mg PO DAILY #20 tab 08/12/21 [Rx] Losartan [Cozaar] 25 mg PO DAILY #20 tablet 08/12/21 [Rx] metFORMIN [Glucophage XR] 500 mg PO WITHDINNER #20 tab.er 08/12/21 [Rx] Oxygen Therapy Mode: Nasal Cannula Oxygen Flow Rate (L/min): 1 (Wear 1 L at all times) Patient Handouts: Type 2 Diabetes Mellitus, Diagnosis, Adult, Vitamin D Deficiency, 10 Things You Can Do to Manage Your COVID-19 Symptoms at Home - [facility] (02/22/2021), Home Oxygen Use, Adult, Cellulitis, Adult, [id number], Pulmonary Embolism, Edema, [id number], Apixaban Tablets Referrals: Huy Shaw MD [Primary Care Provider] - 08/13/21 9:30 am (Your appt is at [facility] Phone number for your provider is [phone]. Address is: [address] [place] [address] ) - Discharge Summary/Plan Comment DC Time >30 min.: Yes Total # of Minutes for Discharge Time: 45 - General Info Date of Service: 08/12/21 Admission Dx/Problem (Free Text: Admission Diagnosis/Problem Admission Diagnosis/Problem Congestive heart failure/hypoxia Functional Status: Reports: Pain Controlled, Tolerating Diet, Ambulating, Urinating, Incentive Spirometry, Other (Acapella ). Denies: New Symptoms - Review of Systems General: Reports: No Symptoms. Denies: Fever, Weakness, Fatigue, Malaise, Ch ills HEENT: Reports: No Symptoms. Denies: Headaches, Sore Throat Pulmonary: Reports: Pleuritic Chest Pain, Cough, Sputum. Denies: Shortness of Breath, Wheezing Cardiovascular: Reports: Edema. Denies: Palpitations, Dyspnea on Exertion Gastrointestinal: Reports: No Symptoms. Denies: Abdominal Pain, Constipation, Diarrhea, Nausea, Vomiting Genitourinary: Reports: No Symptoms. Denies: Pain Musculoskeletal: Reports: No Symptoms Skin: Reports: No Symptoms. Denies: Cyanosis Neurological: Reports: No Symptoms. Denies: Confusion, Dizziness, Headache, Numbness, Seizure, Syncope, Tingling, Tremors, Difficulty Walking, Weakness, Change in Speech, Gait Disturbance Psychiatric: Reports: No Symptoms - Patient Data Vitals - Most Recent: Last Vital Signs Temp 98.1 F 08/12/21 10:58 Pulse 75 08/12/21 10:58 Resp 16 08/12/21 10:58 BP 130/97 H 08/12/21 10:58 Pulse Ox 89 L 08/12/21 10:58 Weight - Most Recent: 226 lb 4.8 oz I&O - Last 24 hours: Intake & Output 08/11/21 08/12/21 08/12/21 22:59 06:59 14:59 Intake Total 1280 1000 Output Total 700 675 Balance 580 325 Lab Results - Last 24 hrs: Laboratory Results - last 24 hr 08/11/21 08/11/21 08/12/21 Range/Units 16:52 21:17 06:10 WBC 5.68 (3.98-10.04) K/mm3 RBC 3.28 L (3.98-5.22) M/mm3 Hgb 10.0 L D (11.2-15.7) gm/dl Hct 33.3 L (34.1-44.9) % MCV 101.5 H (79.4-94.8) fl MCH 30.5 (25.6-32.2) pg MCHC 30.0 L (32.2-35.5) g/dl RDW Std Deviation 63.7 H (36.4-46.3) fL Plt Count 319 (182-369) K/mm3 MPV 8.8 L (9.4-12.3) fl Neut % (Auto) 55.0 (34.0-71.1) % Lymph % (Auto) 36.1 (19.3-51.7) % [place] % (Auto) 8.5 (4.7-12.5) % Eos % (Auto) 0.2 L (0.7-5.8) Baso % (Auto) 0.2 (0.1-1.2) % Neut # (Auto) 3.13 (1.56-6.13) K/mm3 Lymph # (Auto) 2.05 (1.18-3.74) K/mm3 [place] # (Auto) 0.48 H (0.24-0.36) K/mm3 Eos # (Auto) 0.01 L (0.04-0.36) K/mm3 Baso # (Auto) 0.01 (0.01-0.08) K/mm3 Sodium (136-145) mEq/L Potassium (3.5-5.1) mEq/L Chloride (98-107) mEq/L Carbon Dioxide (21-32) mEq/L Anion Gap (5-15) BUN (7-18) mg/dL Creatinine (0.55-1.02) mg/dL Est Cr Clr Drug Dosing mL/min Estimated GFR (MDRD) (>60) mL/min BUN/Creatinine Ratio (14-18) Glucose (70-99) mg/dL POC Glucose 151 H 167 H (70-99) mg/dL Calcium (8.5-10.1) mg/dL Phosphorus (2.6-4.7) mg/dL Magnesium (1.8-2.4) mg/dL Total Bilirubin (0.2-1.0) mg/dL AST (15-37) U/L ALT (14-59) U/L Alkaline Phosphatase (46-116) U/L C-Reactive Protein (<1.0) mg/dL Total Protein (6.4-8.2) g/dl Albumin (3.4-5.0) g/dl Globulin gm/dL Albumin/Globulin Ratio (1-2) 08/12/21 08/12/21 08/12/21 Range/Units 06:10 06:38 10:53 WBC (3.98-10.04) K/mm3 RBC (3.98-5.22) M/mm3 Hgb (11.2-15.7) gm/dl Hct (34.1-44.9) % MCV (79.4-94.8) fl MCH (25.6-32.2) pg MCHC (32.2-35.5) g/dl RDW Std Deviation (36.4-46.3) fL Plt Count (182-369) K/mm3 MPV (9.4-12.3) fl Neut % (Auto) (34.0-71.1) % Lymph % (Auto) (19.3-51.7) % [place] % (Auto) (4.7-12.5) % Eos % (Auto) (0.7-5.8) Baso % (Auto) (0.1-1.2) % Neut # (Auto) (1.56-6.13) K/mm3 Lymph # (Auto) (1.18-3.74) K/mm3 [place] # (Auto) (0.24-0.36) K/mm3 Eos # (Auto) (0.04-0.36) K/mm3 Baso # (Auto) (0.01-0.08) K/mm3 Sodium 140 (136-145) mEq/L Potassium 3.6 (3.5-5.1) mEq/L Chloride 102 (98-107) mEq/L Carbon Dioxide 34 H (21-32) mEq/L Anion Gap 7.6 (5-15) BUN 13 (7-18) mg/dL Creatinine 0.7 (0.55-1.02) mg/dL Est Cr Clr Drug Dosing 90.36 mL/min Estimated GFR (MDRD) > 60 (>60) mL/min BUN/Creatinine Ratio 18.6 H (14-18) Glucose 131 H (70-99) mg/dL POC Glucose 131 H 171 H (70-99) mg/dL Calcium 8.3 L (8.5-10.1) mg/dL Phosphorus 3.5 (2.6-4.7) mg/dL Magnesium 1.7 L (1.8-2.4) mg/dL Total Bilirubin 0.2 (0.2-1.0) mg/dL AST 21 (15-37) U/L ALT 31 (14-59) U/L Alkaline Phosphatase 54 (46-116) U/L C-Reactive Protein 0.3 (<1.0) mg/dL Total Protein 5.9 L (6.4-8.2) g/dl Albumin 2.4 L (3.4-5.0) g/dl Globulin 3.5 gm/dL Albumin/Globulin Ratio 0.7 L (1-2) Med Orders - Current: Current Medications Albuterol (Albuterol 0.083% 2.5 Mg/3 Ml Neb Soln) 2.5 mg NEB Q6HRRT PRN PRN Reason: Wheezing Albuterol (Albuterol 6.7 Gm Inhaler) 0 gm INH Q2H PRN PRN Reason: SOB/Wheezing Albuterol/Ipratropium (Albuterol/Ipratropium 3.0-0.5 Mg/3 Ml Neb Soln) 3 ml NEB QIDRT PRN PRN Reason: SOB/Wheezing Apixaban (Apixaban 5 Mg Tab) 10 mg PO BID [facility] Stop: 08/14/21 21:01 Last Admin: 08/12/21 08:28 Dose: 10 mg Documented by: Cholecalciferol (Cholecalciferol (Vitamin D3) 5,000 Unit Tab) 5,000 unit PO DAILY [facility] Dexamethasone (Dexamethasone 6 Mg Tablet) 6 mg PO DAILY [facility] Stop: 08/16/21 09:01 Last Admin: 08/12/21 08:27 Dose: 6 mg Documented by: Furosemide (Furosemide 20 Mg/2 Ml Vial) 20 mg IVPUSH DAILY [facility] Last Admin: 08/12/21 08:27 Dose: 20 mg Documented by: Vancomycin HCl 1 gm/Vancomycin HCl 250 mg/ Sodium Chloride 250 mls @ 166 mls/hr IV Q12H [facility] Last Admin: 08/12/21 08:29 Dose: 166 mls/hr Documented by: Insulin Human Lispro (Insulin Lispro 100 Unit/Ml 3 Ml Kwikpen) 0 unit SUBCUT WITHMEALSANDBED [facility]; Protocol Last Admin: 08/12/21 12:19 Dose: 2 units Documented by: Losartan Potassium (Losartan 25 Mg Tab) 25 mg PO DAILY [facility] Last Admin: 08/12/21 08:27 Dose: 25 mg Documented by: Ondansetron HCl (Ondansetron 4 Mg/2 Ml Sdv) 4 mg IVPUSH Q8HR PRN PRN Reason: Nausea/Vomiting Last Admin: 08/10/21 10:30 Dose: 4 mg Documented by: Sodium Chloride (Sodium Chloride 0.9% 10 Ml Syringe) 10 ml FLUSH 0900,2100 [facility] Last Admin: 08/12/21 08:28 Dose: 10 ml Documented by: Trazodone HCl (Trazodone 50 Mg Tab) 50 mg PO BEDTIME PRN PRN Reason: Insomnia Last Admin: 08/08/21 20:32 Dose: 50 mg Documented by: Vancomycin HCl (Pharmacy To Dose - Vancomycin) 1 dose .XX ASDIRECTED PRN PRN Reason: RX TO DOSE VANCO Zinc Sulfate (Zinc Sulfate 220 Mg Cap) 220 mg PO DAILY [facility] Last Admin: 08/12/21 08:28 Dose: 220 mg Documented by: Discontinued Medications Cholecalciferol (Cholecalciferol (Vitamin D3) 5,000 Unit Cap) 5,000 unit PO DAILY [facility] Last Admin: 08/12/21 08:28 Dose: 5,000 unit Documented by: Dexamethasone (Dexamethasone 6 Mg Tablet) 6 mg PO DAILY [facility] Last Admin: 08/08/21 01:44 Dose: Not Given Documented by: Dexamethasone (Dexamethasone 6 Mg Tablet) 6 mg PO DAILY [facility] Enoxaparin Sodium (Enoxaparin 40 Mg/0.4 Ml Syringe) 40 mg SUBCUT BEDTIME [facility] Last Admin: 08/07/21 20:00 Dose: 40 mg Documented by: Furosemide (Furosemide 20 Mg/2 Ml Vial) 20 mg IVPUSH NOW ONE Stop: 08/07/21 17:31 Last Admin: 08/07/21 18:53 Dose: 20 mg Documented by: Hyaluronidase (Hyaluronidase, Human Recombinant 150 Units/1 Ml Sdv) 150 units SUBCUT ONETIME ONE Stop: 08/09/21 00:08 Last Admin: 08/09/21 00:26 Dose: 150 units Documented by: Ceftriaxone Sodium 2 gm/ (Sodium Chloride) 100 mls @ 200 mls/hr IV Q24H [facility] Last Admin: 08/07/21 19:57 Dose: Not Given Documented by: Ceftriaxone Sodium 2 gm/ (Sodium Chloride) 100 mls @ 200 mls/hr IV Q24H [facility] Stop: 08/11/21 20:29 Last Admin: 08/11/21 20:30 Dose: 200 mls/hr Documented by: Remdesivir 200 mg/ Sodium (Chloride) 250 mls @ 250 mls/hr IV ONETIME ONE Stop: 08/07/21 22:01 Last Admin: 08/08/21 01:21 Dose: Not Given Documented by: Remdesivir 100 mg/ Sodium (Chloride) 250 mls @ 250 mls/hr IV Q24H [facility] Stop: 08/11/21 22:01 Last Admin: 08/11/21 21:22 Dose: 250 mls/hr Documented by: Remdesivir 200 mg/ Sodium (Chloride) 250 mls @ 250 mls/hr IV ONETIME ONE Stop: 08/08/21 01:59 Last Admin: 08/08/21 01:21 Dose: 250 mls/hr Documented by: Azithromycin 500 mg/ Sodium (Chloride) 250 mls @ 250 mls/hr IV Q24H [facility] Stop: 08/10/21 10:59 Last Admin: 08/10/21 09:01 Dose: 250 mls/hr Documented by: Sodium Chloride (Normal Saline) 100 mls @ 60 mls/hr IV ASDIRECTED [facility] Stop: 08/08/21 12:00 Last Admin: 08/08/21 10:25 Dose: 60 mls/hr Documented by: Vancomycin HCl 1 gm/Vancomycin HCl 500 mg/ Sodium Chloride 500 mls @ 250 mls/hr IV ONETIME ONE Stop: 08/08/21 16:29 Last Admin: 08/08/21 15:01 Dose: 250 mls/hr Documented by: Vancomycin HCl 1 gm/Vancomycin HCl 250 mg/ Sodium Chloride 250 mls @ 166.667 mls/hr IV Q18H [facility] Vancomycin HCl 1 gm/Vancomycin HCl 250 mg/ Sodium Chloride 250 mls @ 166.667 mls/hr IV Q18H [facility] Last Admin: 08/10/21 02:08 Dose: 166.667 mls/hr Documented by: Sodium Chloride (Normal Saline) Confirm Administered Dose 250 mls @ as directed .ROUTE .STK-MED ONE Stop: 08/09/21 01:18 Last Admin: 08/09/21 02:24 Dose: Not Given Documented by: Magnesium Sulfate 2 gm/ Premix 50 mls @ 25 mls/hr IV ONETIME ONE Stop: 08/09/21 14:50 Last Admin: 08/09/21 13:17 Dose: 25 mls/hr Documented by: Vancomycin HCl 1 gm/Vancomycin HCl 250 mg/ Sodium Chloride 250 mls @ 166 mls/hr IV Q8H [facility] Last Admin: 08/11/21 10:35 Dose: Not Given Documented by: Magnesium Sulfate 2 gm/ Premix 50 mls @ 25 mls/hr IV ONETIME ONE Stop: 08/12/21 10:27 Last Admin: 08/12/21 08:39 Dose: 25 mls/hr Documented by: Influenza Virus Vaccine (Flu Vacc [id number] 36mos Up/Pf 60 Mcg/0.5 Ml Syringe) 60 mcg IM .ONCE ONE Stop: 08/12/21 13:01 Iopamidol (Iopamidol 755 Mg/Ml 100 Ml Bottle) 100 ml IVPUSH ONETIME ONE Stop: 08/08/21 09:45 Last Admin: 08/08/21 10:24 Dose: 100 ml Documented by: Ondansetron HCl (Ondansetron 4 Mg/2 Ml Sdv) Confirm Administered Dose 4 mg .ROUTE .STK-MED ONE Stop: 08/10/21 10:15 Last Admin: 08/10/21 15:54 Dose: Not Given Documented by: Potassium Chloride (Potassium Chloride 20 Meq Tab.Er) 20 meq PO BID VIVIAN Stop: 08/08/21 22:00 Last Admin: 08/08/21 20:31 Dose: 20 meq Documented by: Potassium Chloride (Potassium Chloride 20 Meq Tab.Er) 20 meq PO ONETIME ONE Stop: 08/10/21 15:15 Last Admin: 08/10/21 15:54 Dose: 20 meq Documented by: Potassium Chloride (Potassium Chloride 20 Meq Tab.Er) 40 meq PO ONETIME ONE Stop: 08/11/21 12:01 Last Admin: 08/11/21 13:00 Dose: 40 meq Documented by: Sodium Chloride (Sodium Chloride 0.9% 10 Ml Syringe) 10 ml FLUSH ONETIME ONE Stop: 08/08/21 09:45 Last Admin: 08/08/21 11:47 Dose: 10 ml Documented by: - Exam Quality Assessment: Reports: Supplemental Oxygen (1L), DVT Prophylaxis. Denies: Urine Catheter General: Reports: Alert, Oriented, Cooperative, No Acute Distress HEENT: Reports: Pupils Equal, Pupils Reactive, Mucous Membr. Moist/[place] Neck: Reports: Supple, Trachea Midline Lungs: Reports: Normal Respiratory Effort, Decreased Breath Sounds Cardiovascular: Reports: Regular Rate, Regular Rhythm GI/Abdominal Exam: Normal Bowel Sounds, Soft, Non-Tender, No Distention (Female) Exam: Deferred Rectal (Female) Exam: Deferred Back Exam: Reports: Normal Inspection, Full Range of Motion Extremities: Normal Inspection, Normal Range of Motion, Non-Tender, Normal Capillary Refill, Pedal Edema (3+) Skin: Reports: Warm, Dry, Intact Neurological: Reports: No New Focal Deficit Psy/Mental Status: Reports: Alert, Normal Affect, Normal Mood
--- NOTE | 2021-08-12 13:53 | CR ---
EXAM: XR CHEST 1 VIEW LOCATION: [facility] [place] DATE/TIME: 08/10/2021 8:32 AM INDICATION: Condition or disease; lung condition and disease; pneumonia and pulmonary embolism; patient rx; pe, pneumonia COMPARISON: No prior images available for comparison at the time of dictation. IMPRESSION: Mild/moderate bilateral mid to lower lung interstitial opacities which are most likely infectious. Small right pleural effusion. Elevated right hemidiaphragm. The cardiac silhouette is normal in size. Scoliosis. SIGNED BY: Julius Mendieta MD 08/12/2021 12:36 PM TAIWO
[2021-08-13] MEDS ORDERED: Cholecalciferol (Vitamin D3) 5,000 UNIT Tab PO SCH (09:00)
== END 2021-08-12 13:28 | disposition home or self-care (01) | DRG 177 ==
LOC: UNDOADMIN 15:29 → JD.MS 15:29
PROVIDERS: ADMIT Pediatrics; ATTEND Pediatrics
PROC: XW033E5 Introduction of Remdesivir Anti-infective into Peripheral Vein, Percutaneous Approach, New Technology Group 5 (ICD-10-PCS; principal; 2021-08-07)
PROC: 3E0DX3Z Introduction of Anti-inflammatory into Mouth and Pharynx, External Approach (ICD-10-PCS; 2021-08-07)
PROC: 8E0ZXY6 Isolation (ICD-10-PCS; 2021-08-07)
DX: U07.1 COVID-19 (principal); J12.82 Pneumonia due to coronavirus disease 2019; I26.99 Other pulmonary embolism without acute cor pulmonale; J96.01 Acute respiratory failure with hypoxia; L03.116 Cellulitis of left lower limb; L03.115 Cellulitis of right lower limb; K08.9 Disorder of teeth and supporting structures, unspecified; E11.9 Type 2 diabetes mellitus without complications; E55.9 Vitamin D deficiency, unspecified; R93.1 Abnormal findings on diagnostic imaging of heart and coronary circulation; E66.9 Obesity, unspecified; M19.90 Unspecified osteoarthritis, unspecified site; I50.810 Right heart failure, unspecified; N19 Unspecified kidney failure; Z68.37 Body mass index [BMI] 37.0-37.9, adult
CPT/HCPCS: 0241U; 36415; 36600; 71045; 71045-26; 71275; 71275-26; 80053; 80202; 82306; 82803; 82947; 83036; 83735; 83880; 84100; 84145; 84443; 84484; 85025; 85379; 86140; 87040; 87641; 93005; 93306; 94667; 94668; 94761; 94762; A9270-GY; G0008; J0456; J0696; J1650; J1815; J1940; J2405; J3370; J3470; J3475; J7040; J7050; J8540; Q9967

== ENCOUNTER 2021-11-02 12:50 | Observation (INO) | payer SELFPAY ==
[2021-11-02] MEDS ORDERED: Ondansetron 4 MG/2 ML SDV IVPUSH ONE (13:21)
[2021-11-02] MEDS: Sodium Chloride 0.9% 1,000 ML IV SCH ×2 (14:11→21:23)
[2021-11-02] MEDS ORDERED: oxyCODONE 5 MG Tab PO PRN (16:51)
[2021-11-02] MEDS ORDERED: Acetaminophen 325 MG Tab PO PRN (16:51)
[2021-11-02] MEDS ORDERED: Ondansetron 4 MG Tab.DIS PO PRN (16:51)
[2021-11-02] MEDS ORDERED: Acetaminophen 650 MG Supp RECTAL PRN (16:51)
[2021-11-02] MEDS ORDERED: Ondansetron 4 MG/2 ML SDV IV PRN (16:51)
[2021-11-02] MEDS ORDERED: Potassium Bicarbonate/Cit Ac 20 MEQ Effervescent Tab PO ONE (16:58)
[2021-11-02 17:15] LABS: HEMOGLOBIN A1C 5.8 %
[2021-11-02] MEDS: Insulin Regular, Human 100 Units/ML 3 ML Vial SUBCUT SCH (18:30)
[2021-11-03] MEDS: Sodium Chloride 0.9% 1,000 ML IV SCH ×3 (06:13→19:47)
[2021-11-03] MEDS: Insulin Regular, Human 100 Units/ML 3 ML Vial SUBCUT SCH ×3 (08:44→18:12)
[2021-11-03] MEDS ORDERED: Apixaban 5 MG Tab PO SCH (09:00)
[2021-11-03] MEDS ORDERED: Albuterol 6.7 GM Inhaler INH PRN (13:43)
[2021-11-03] MEDS: LOSARTAN 25 MG PO SCH (15:58)
[2021-11-03] MEDS ORDERED: Rivaroxaban 10 MG Tab PO SCH ×2 (18:00)
[2021-11-03] MEDS ORDERED: RIVAROXABAN 20 MG PO SCH (18:00)
[2021-11-04] MEDS: Sodium Chloride 0.9% 1,000 ML IV SCH (02:40)
[2021-11-04] MEDS ORDERED: Non-Formulary Medication 1 Each (Rivaroxaban [Xarelto] 20 MG Tablet) PO SCH (09:00)
[2021-11-04] MEDS ORDERED: Cholecalciferol (Vitamin D3) 5,000 UNIT Tab PO SCH (09:00)
[2021-11-04] MEDS: LOSARTAN 25 MG PO SCH (09:21)
[2021-11-04] MEDS: Insulin Regular, Human 100 Units/ML 3 ML Vial SUBCUT SCH (09:21)
== END 2021-11-04 10:47 | disposition home or self-care (01) ==
LOC: JD.ED 12:50 → JD.MS 15:42
PROVIDERS: ADMIT Internal Medicine; ATTEND Internal Medicine
DX: E86.0 Dehydration (principal); N17.9 Acute kidney failure, unspecified; I26.09 Other pulmonary embolism with acute cor pulmonale; E11.9 Type 2 diabetes mellitus without complications; I11.0 Hypertensive heart disease with heart failure; I50.9 Heart failure, unspecified; E55.9 Vitamin D deficiency, unspecified; E66.9 Obesity, unspecified; Z68.30 Body mass index [BMI] 30.0-30.9, adult; Z79.84 Long term (current) use of oral hypoglycemic drugs; Z79.899 Other long term (current) drug therapy; Z79.01 Long term (current) use of anticoagulants; Z20.822 Contact with and (suspected) exposure to COVID-19; Z86.16 Personal history of COVID-19
CPT/HCPCS: 36415; 71045; 71045-26; 80053; 81001; 82947; 83036; 83690; 83880; 84484; 85007; 85025; 85027; 86140; 93005; 93010; 94760; 94761; 96374; 99285; 99285-25; A9270-GY; G0378; J2405; J7030; U0002

== ENCOUNTER 2021-11-09 16:32 | Emergency (ER) | payer SELFPAY ==
[2021-11-09] MEDS ORDERED: Ondansetron 4 MG/2 ML SDV IVPUSH ONE (17:48)
[2021-11-09] MEDS ORDERED: Sodium Chloride 0.9% 1,000 ML IV STA (17:48)
[2021-11-09] MEDS: Sodium Chloride 0.9% 10 ML Syringe FLUSH PRN ×2 (18:13→19:30)
[2021-11-09] MEDS ORDERED: Potassium Chloride 20 MEQ Tab.ER PO ONE (18:32)
[2021-11-09] MEDS ORDERED: Iopamidol 612 MG/ML 100 ML Bottle IVPUSH ONE (19:29)
[2021-11-09] MEDS ORDERED: cefTRIAXone 2 GM in Sodium Chloride 0.9% 100 ML IV ONE (19:47)
== END 2021-11-09 21:17 | disposition home or self-care (01) ==
LOC: JD.ED 16:32
DX: R11.2 Nausea with vomiting, unspecified (principal); R19.7 Diarrhea, unspecified; I11.0 Hypertensive heart disease with heart failure; I50.9 Heart failure, unspecified; E11.9 Type 2 diabetes mellitus without complications; M19.90 Unspecified osteoarthritis, unspecified site; E66.9 Obesity, unspecified; Z68.28 Body mass index [BMI] 28.0-28.9, adult; Z79.01 Long term (current) use of anticoagulants; Z79.84 Long term (current) use of oral hypoglycemic drugs; Z79.899 Other long term (current) drug therapy
CPT/HCPCS: 36415; 74177; 80053; 81001; 83690; 83880; 84702; 84703; 85025; 86140; 87086; 96365; 96375; 99284; A9270; J0696; J2405; J3490; J7030; Q9967